=== PATIENT | male | born 1950 | race Caucasian/White ===

== ENCOUNTER 2017-12-14 15:55 | Inpatient (IN) | payer OTHER ==
[2017-12-14] MEDS ORDERED: LORazepam 2 MG/ML INJ IVP ONE (16:10)
[2017-12-14] MEDS ORDERED: NS 1,000 ML IV ONE (16:10)
--- NOTE | 2017-12-14 16:14 | CPEKG ---
Heart Rate: 111 RR Interval: 541 P-R Interval: 148 QRSD Interval: 94 QT Interval: 352 QTC Interval: 479 P Waverly: 41 QRS Waverly: 11 T Wave Waverly: 36 EKG Severity - ABNORMAL ECG - EKG Impression: PACEMAKER SPIKES OR ARTIFACTS EKG Impression: SINUS TACHYCARDIA EKG Impression: BORDERLINE PROLONGED QT INTERVAL Electronically Signed By: Marlen Loving 14-Dec-2017 19:29:22
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
[2017-12-14 16:26] LABS: PLATELET COUNT 273 10^3/uL (150-400)
[2017-12-14] MEDS ORDERED: OLANZapine DISINTEGR 5 MG TAB PO ONE (16:58)
[2017-12-14] MEDS ORDERED: HALOPERIDOL LACT 5 MG/ML INJ ONE (19:03)
[2017-12-14] MEDS ORDERED: HALOPERIDOL LACT 5 MG/ML INJ IM ONE (19:10)
[2017-12-15] MEDS ORDERED: MAGNESIUM HYDROXIDE 30 ML UDCUP PO PRN (14:59)
[2017-12-15] MEDS ORDERED: MAG HYDROX/AL HYDROX/SIMETH 30 ML UDCUP PO PRN (14:59)
[2017-12-15] MEDS ORDERED: OLANZapine DISINTEGR 10 MG TAB PO PRN (14:59)
[2017-12-15] MEDS ORDERED: traZODone 50 MG TAB PO PRN (15:01)
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
[2017-12-15] MEDS: BENZTROPINE MESYLATE 1 MG TAB PO SCH ×2 (19:02→19:07)
[2017-12-15] MEDS: NICOTINE POLACRILEX 2 MG GUM B PRN (19:02)
[2017-12-16] MEDS: NICOTINE POLACRILEX 2 MG GUM B PRN ×2 (05:03→07:26)
[2017-12-16] MEDS: BENZTROPINE MESYLATE 1 MG TAB PO SCH ×3 (07:25→20:37)
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
--- NOTE | 2017-12-16 13:26 | PDGENHP ---
History and Physical History and Physical: CC: I have been asked by the mental health team to provide assessment and assistance in the care of this patient who is admitted to the Behavioral Health Unit with acute psychosis HISTORY: This patient who has a previous history of psychiatric illness including some type of psychotic illness, diagnosis is unclear to me, was apparently pulled over by police for driving 100 miles an hour on a local roadway and was noted to be very clearly in need of mental health assessment and care. It is reported to me by staff here on the unit that the patient was found to have some methamphetamine in his pocket but I do not know the details of this. He was assessed in the emergency room and is now on the Behavioral Health Unit or evaluating him. Most of the history I have available comes to me directly from the patient, and this is quite unreliable as he is clearly quite psychotic at this point. However he does state that he feels very physically comfortable and denies any symptoms of any acute illness in the recent past. He does offer up some type of history of some very bizarre symptoms from the remote past but these are bizarre enough that they do not really make any sense from a medical standpoint and I am not at all clear as to whether the relate to any real illness or injury in the past or not. He does not feel like he needs any specific help for any acute medical issues, nor does he have any concerns about any acute medical issues now. He is concerned about his mental health and knows that things are not working very well for him right now, and is hoping that he can improve to the point of being discharged fairly soon. He would like to be home with his significant other. ROS: A comprehensive 10 system review revealed no other significant findings PAST MEDICAL HISTORY: Unable to assess other than that I know he has some type of significant psychiatric history There are no available past medical records at this time and we are not able to find out from him where he he has had past care from talking to him FAMILY MEDICAL HISTORY: Unable to assess due to his psychosis now SOCIAL HISTORY: He apparently has a significant other although I am unable to determine if that is a or other partner Apparently he uses methamphetamine as we did find this on him, he does not deny using any street drugs here but I am unable to get a clear answer as to what he might use or when MEDICATIONS: The patients list has been reconciled by our clinical pharmacist in the EMR. I have reviewed the list and ordered appropriate medicines. PHYSICAL EXAMINATION: Vital Signs: He is mildly tachycardic right now but has a regular pulse, initially hypertensive but this is improving, no fever and respirations are good Examination: General/psychiatric: Fairly disheveled in appearance, hyperactive, mildly anxious but very pleasant and in fact fairly giddy; pressured speech; very bizarre psychotic content to his speech, he has a book that he shows me that has some art work that he has done just recently which is done by markers and pen and ink. All of this are workers quite bizarre some of it quite disorganized but some of it quite psychedelic. Neurologic: alert, and interacts appropriately, however he is clearly very psychotic with much bizarre ideation some of which is grandiose and some of which is baptism, dramatically increased psychomotor activity, however no tremor, and no other abnormal neurologic movement findings. He has a normal gait. Facial symmetry is unremarkable; understands that he is in Behavioral Health Unit, speech and language function are good other than the psychotic component Skin: warm, dry, good color, no rash HEENT: normal Neck: no mass or jvd Resps: relaxed Lungs: clear breath sounds Heart: regular, no murmur Abdomen: soft, nondistended, nontender, +BS, no mass Upper Extremities: normal Lower Extremities: no edema, warm No Bleeding or bruising LABORATORY DATA: No TSH was done in the ER but the rest of his chemistry and CBC remarkable 12 LEAD EKG: I reviewed the tracing from the ER EKG, it shows sinus rhythm with no specific abnormality. It is read as borderline QT prolongation but as I measured it does not actually appear as long as recorded on the tracing numbers. IMAGING STUDIES: A CT head was done in the emergency room I reviewed the images from that, I see no specific acute abnormality or anything that would relate to his presenting symptoms ASSESSMENT: -acute psychosis with a history of psychiatric illness in the past. The past diagnosis and treatments are unknown to me nor is his current use of prescribed medications as he is unable to elaborate -suspected methamphetamine use and would not be surprised if there were use of other compounds with psych a delicate affect -tachycardia and hypertension probably related to his use of street drugs and has psychotic state as a result rather than a cause -we have not checked thyroid and would certainly want to check that given his tachycardia and mental health changes -otherwise appears to be in good physical health at this time PLANS: I have ordered a TSH He is actually happy pleasant and given his overall state, not really agitated or having any problematic behaviors on the unit at this time; should he begin to get fairly agitated or have problematic behaviors Ativan might be quite useful given his suspected ingestions
[2017-12-16] MEDS: LORazepam 0.5 MG TAB PO PRN (18:38)
[2017-12-17] MEDS: BENZTROPINE MESYLATE 1 MG TAB PO SCH ×2 (08:54→21:11)
[2017-12-17] MEDS: NICOTINE POLACRILEX 2 MG GUM B PRN (10:02)
--- NOTE | 2017-12-17 14:46 | SOAPPROG ---
SOAP Progress Note Assessment/Plan: Assessment: 67 yo with h/o bipolar, type I, mre manic without psychotic features and polysubstance dependence. Plan: 12/16/17 12:34 1. Patient has been restarted on Prolixin 2.5mg TID which he had been prescribed for many years. Most recently, he had Rx filled in 08/15 from [facility]. 2. Patient refused to take Cogentin this AM. 3. Patient is still very grandiose and delusional, intrusive, pressured speech, difficult to interrupt. 4. Will place on STC when hold expires tomorrow. 12/17/17 14:41 1. MD recommended addition of mood stabilizer, either lithium or Depakote, but patient insisted he "doesn't need anything" else. MD is concerned that Prolixin is not effective as monotherapy to treat patient's ebony. However, patient insists that's all he's ever taken in past. 2. Patient did take PRN Zyprexa and Ativan last night b/c he was agitated and staff recommended it. However, this AM, patient was paranoid and irritable when MD and RN mentioned he might need additional meds. "What are you trying to push on me?" he said. 3. Patient still grandiose, delusional, and sexually inappropriate with female staff and peers. Only slept 4 hrs. 4. Increase Prolixin to 5mg TID since that is the only med patient will take now. 5. STC today Subjective: Met with patient, reviewed chart and d/w staff. Patient says "I'm ready to leave." MD pointed out that patient was driving recklessly and thought God told him to do it. In MD's opinion, patient should be on mood stabilizer for ebony, however, patient insisted he "doesn't need" any other meds. He is refusing to take lithium or depakote which MD recommended and even refused Ativan when MD suggested it might help with his agitation. Patient only slept 4 hours last night. Objective: Vital Signs Temp Pulse Resp BP Pulse Ox 36.4 C 97 16 145/87 H 97 12/17/17 06:00 12/17/17 06:00 12/17/17 06:00 12/17/17 06:00 12/17/17 06:00 MSE: Affect: Elevated, irritable at times Mood: "I'm great" TP: Tangential, difficult to interrupt TC: Grandiose delusions, paranoia about meds Insight/ Judgment: Impaired - Time Spent With Patient Time Spent With Patient: 20" - Pending Discharge Pending Discharge Within 24 Hours: No Pending Discharge Within 48 Hours: No ICD10 Worksheet Patient Problems: Problems Problem Status Onset Ebony Acute
[2017-12-17] MEDS: LORazepam 0.5 MG TAB PO PRN (22:42)
[2017-12-18] MEDS: NICOTINE POLACRILEX 2 MG GUM B PRN ×5 (07:08→22:25)
[2017-12-18] MEDS: BENZTROPINE MESYLATE 1 MG TAB PO SCH (08:11)
[2017-12-18] MEDS ORDERED: OLANZapine DISINTEGR 10 MG TAB PO PRN (08:32)
[2017-12-18] MEDS ORDERED: FLUPHENAZINE HCL IM PRN (12:31)
[2017-12-18] MEDS ORDERED: LORazepam 0.5 MG TAB PO PRN (12:31)
[2017-12-18] MEDS ORDERED: LORazepam 2 MG/ML INJ IM PRN (12:32)
--- NOTE | 2017-12-18 12:37 | SOAPPROG ---
SOAP Progress Note Assessment/Plan: Assessment: Bipolar Disorder type I Manic severe with psychotic features versus Schizoaffective Disorder bipolar type Cannabis Use Disorder severe Stimulant Use Disorder severe Overweight Patient admitted for reckless driving, disorganized thoughts/behaviors, grandiose delusions, appearing gravely disabled. Patient has been non-compliant with Prolixin since July, history of multiple psychiatric hospitalizations. Patient has been intrusive, hypersexual, disruptive on unit and spit out medications at times. Patient has been menacing staff and received Zydis 10mg PRN this AM. Plan: Patient is on short term certification Apply for court ordered ordered medication EMED DAY # ONE Prolixin 5mg PO TID, if refused 2.5mg IM TID Ativan 1mg PO TID PRN anxiety, if refused 1mg IM TID Zydis 10mg [id number] PRN agitation Cogentin 1mg PRN EPS Check lipids, HgbA1c, B12 Discussed dangers of cannabis and amphetamines Education about bipolar disorder 12/18/17 12:38 12/18/17 12:42 Subjective: CC: "I'm normal, I love everyone, love is in the air, my parents are here" Patient is a poor historian with rambling speech. Lives alone in apartment, on SS disability for mental illness but reports he doesn't believe he has a mental illness. 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 Admits to smoking cannabis daily and obtaining amphetamines prior to admission. Endorses multiple past psychiatric hospitalizations. Unable to explain signs/symptoms of bipolar disorder. Unsure if he is willing to take Prolixin. Denies using alcohol or sedatives prior to admission. Denies stiffness or tremors. Objective: Vital Signs Temp Pulse Resp BP Pulse Ox 36.4 C 98 20 134/93 H 93 12/18/17 06:00 12/18/17 06:00 12/18/17 06:00 12/18/17 06:00 12/18/17 06:00 Alert tall WM, long hair, sock hanging from front collar, overweight. Speech rapid, rambling. Mood 'normal, love everyone.' Affect labile - euphoric, expansive, later irritable and dysphoric. Denies SI or HI. Denies AH or paranoia. no insight, impaired judgment Staff report patient slept 5 hours. Intrusive, hypersexual, leah naked woman in art group, disorganized and menacing to staff with yelling and angry grestures, got PRN Zydis and Ativan over past 24hours. Psychiatrist Dr. Paulino Maria reports patient was previously stable on 10mg/ day of Prolixin but hasn't been seen in clinic in 6 months, history of hospitalizations for Bipolar Disorder with psychotic features versus Schizoaffective Disorder, past outpatient at [facility]. - Time Spent With Patient Time Spent With Patient: 30 minutes - Pending Discharge Pending Discharge Within 24 Hours: No Pending Discharge Within 48 Hours: No ICD10 Worksheet Patient Problems: Problems Problem Status Onset Ebony Acute
[2017-12-18] MEDS ORDERED: BENZTROPINE MESYLATE 1 MG TAB PO PRN (12:43)
[2017-12-19] MEDS: NICOTINE POLACRILEX 2 MG GUM B PRN ×5 (04:40→21:20)
[2017-12-19] MEDS ORDERED: CYANO/VITAMIN B12 1000 MCG/ML VIAL IM ONE (11:00)
--- NOTE | 2017-12-19 12:28 | SOAPPROG ---
SOAP Progress Note Assessment/Plan: Assessment: Bipolar Disorder type I Manic severe with psychotic features versus Schizoaffective Disorder bipolar type Cannabis Use Disorder severe Stimulant Use Disorder severe Overweight, elevated LDL, borderline low B12 Nicotine Use Disorder - uses nicotine gum Patient admitted for reckless driving, disorganized thoughts/behaviors, grandiose delusions, appearing gravely disabled. Patient has been non-compliant with Prolixin since July, history of multiple psychiatric hospitalizations. Patient has been intrusive, hypersexual, disruptive on unit and spit out medications at times and may be 'cheeking' Prolixin tablets. Plan: Patient is on short term certification Applied for court ordered ordered medication EMED DAY # TWO Discontinue PO Prolixin Risperdal SL 2mg TID, if refused Fluphenazine 2.5mg IM TID Ativan 1mg PO TID PRN anxiety, if refused 1mg IM TID Cogentin 1mg PRN EPS Education about bipolar disorder. Monitor manic symptoms, behavior, impulse control, judgment Start B12 IM once then PO 100mcg daily 12/19/17 12:31 Subjective: CC: "angry because I'm a genious and you're not an artist." Patient is a poor historian. Denies violent or suicidal thoughts. Reports he recognizes he has bipolar disorder but doesn't want treatment. 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 isn't intelligent enough to help him. Endorses past trials of Depakote, [place], and Risperdal but unable to explain why or if he had benefit or side effects. Unable to explain why he is in the hospital. Objective: Vital Signs Temp Pulse Resp BP Pulse Ox 36.4 C 74 14 138/91 H 95 12/18/17 06:00 12/19/17 06:00 12/19/17 06:00 12/19/17 06:00 12/19/17 06:00 ALert tall heavy WM. Disheveled with bizarre hair micheal and layered clothing. Mood "angry because I'm a genious and you're not an artist." Speech rapid with yelling and wild gesturing. Agitated and irritable affect, expansive at times. Thoughts tangential with flight of ideas. Denies SI or HI or AH. Grandiose delusions. Poor insight. Staff report patient labile, irritable, only slept 1 hour but napped yesterday. Singing, dancing, and skipping through the hallways with disorganized and bizarre behavior; making statements about saving mankind and talking to God. HgbA1c 5.2; Trig 84, LDL 195, HDL 49, B12 281 - Time Spent With Patient Time Spent With Patient: 15 minutes - Pending Discharge Pending Discharge Within 24 Hours: No Pending Discharge Within 48 Hours: No ICD10 Worksheet Patient Problems: Problems Problem Status Onset Ebony Acute
[2017-12-19] MEDS ORDERED: FLUPHENAZINE HCL IM PRN (12:31)
[2017-12-19] MEDS ORDERED: LORazepam 2 MG/ML INJ IM PRN (12:32)
[2017-12-19] MEDS: RISPERIDONE 2 MG ODT TAB SL SCH ×2 (15:30→19:27)
[2017-12-19] MEDS: CYANO/VITAMIN B12 100 MCG TAB PO SCH (16:46)
[2017-12-20] MEDS: NICOTINE POLACRILEX 2 MG GUM B PRN ×4 (02:32→23:35)
[2017-12-20] MEDS: CYANO/VITAMIN B12 100 MCG TAB PO SCH (08:21)
[2017-12-20] MEDS: RISPERIDONE 2 MG ODT TAB SL SCH ×3 (08:21→20:39)
--- NOTE | 2017-12-20 08:39 | SOAPPROG ---
SOAP Progress Note Assessment/Plan: Assessment: Bipolar Disorder type I Manic severe with psychotic features versus Schizoaffective Disorder bipolar type Cannabis Use Disorder severe Stimulant Use Disorder severe Overweight, elevated LDL, elevated BP, borderline low B12 Nicotine Use Disorder - uses nicotine gum Patient admitted for reckless driving, disorganized thoughts/behaviors, grandiose delusions, appearing gravely disabled concurrent with cannabis and amphetamine abuse and outpatient treatment non-compliance. Patient has been non-compliant with Prolixin since July, history of multiple psychiatric hospitalizations. Patient has continued manic symptoms with inappropriate behavior and severe insomnia. Plan: Patient is on short term certification Applied for court ordered ordered medication Discontinue EMEDS Continue Risperdal SL 2mg TID, started 12/19/17 Start Depakene liquid 250mg TID, discussed risk of sedation, hepatitis, pancreatitis, thrombocytopenia Ativan 1mg PO TID PRN anxiety Cogentin 1mg TID PRN EPS Education about bipolar disorder. Monitor manic symptoms, behavior, impulse control, judgment B12 IM given 12/19; continue PO B12; restart Lipitor and Lisinopril 12/20/17 08:41 Subjective: CC: "I love it" Patient reports he slept peacefully and denies somatic complaints; denies feeling stiff or slowed or sedated. Endorses past diagnoses of hypertension and hyperlipidemia and taking lisinopril and lipitor in the past, willing to restart. 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 Reports he now believes he has bipolar disorder and is willing to take medication. Unable to explain reasons for admission or recurrent medication non -compliance but is willing to consider stopping cannabis and amphetamine abuse. Objective: Vital Signs Temp Pulse Resp BP Pulse Ox 36.8 C 99 14 139/98 H 96 12/20/17 06:00 12/20/17 06:00 12/20/17 06:00 12/20/17 06:00 12/20/17 06:00 Alert tall WM. Ambulatory. Speech rapid, loud at times. Thoughts tangential with flight of ideas. Mood 'great" "I love it" Affect expansive, then labile and tearful. Denies SI or HI or AH. Insight limited. Judgment impaired. Staff report patient cooperative with SL Risperdal Mtab but only slept 1.5 hours overnight. Hypersexual statements, labile, disorganized, and grandiose on unit, inappropriately touched female patients foot. - Time Spent With Patient Time Spent With Patient: 30 minutes - Pending Discharge Pending Discharge Within 24 Hours: No Pending Discharge Within 48 Hours: No ICD10 Worksheet Patient Problems: Problems Problem Status Onset Ebony Acute
[2017-12-20] MEDS: ATORVASTATIN CALCIUM 10 MG TAB PO SCH (08:58)
[2017-12-20] MEDS: LISINOPRIL 5 MG TAB PO SCH (08:58)
[2017-12-20] MEDS: VALPROIC ACID 250 MG/5 ML UDCUP PO SCH ×3 (08:59→20:39)
[2017-12-20] MEDS: NICOTINE 21 MG/24 HR PATCH TD SCH (11:08)
[2017-12-21] MEDS: MELATONIN 3 MG TAB PO PRN (00:04)
[2017-12-21] MEDS: NICOTINE POLACRILEX 2 MG GUM B PRN ×3 (04:17→06:38)
[2017-12-21] MEDS: NICOTINE 21 MG/24 HR PATCH TD SCH (08:38)
[2017-12-21] MEDS: CYANO/VITAMIN B12 100 MCG TAB PO SCH (08:38)
[2017-12-21] MEDS: LISINOPRIL 5 MG TAB PO SCH (08:39)
[2017-12-21] MEDS: RISPERIDONE 2 MG ODT TAB SL SCH ×3 (08:39→20:40)
[2017-12-21] MEDS: ATORVASTATIN CALCIUM 10 MG TAB PO SCH (08:39)
[2017-12-21] MEDS: VALPROIC ACID 250 MG/5 ML UDCUP PO SCH ×3 (08:40→20:41)
--- NOTE | 2017-12-21 10:16 | SOAPPROG ---
SOAP Progress Note Assessment/Plan: Assessment: Bipolar Disorder type I Manic severe with psychotic features versus Schizoaffective Disorder bipolar type Cannabis Use Disorder severe Stimulant Use Disorder severe Overweight, elevated LDL, elevated BP, borderline low B12 Nicotine Use Disorder - uses nicotine gum Patient admitted for reckless driving, disorganized thoughts/behaviors, grandiose delusions, appearing gravely disabled concurrent with cannabis and amphetamine abuse and outpatient treatment non-compliance. Patient has been non-compliant with Prolixin since July, history of multiple psychiatric hospitalizations. Patient has continued manic symptoms with bizarre and disorganized behavior and severe insomnia. Plan: Patient is on short term certification Applied for court ordered ordered medication Continue Risperdal SL 2mg TID, started 12/19/17 Increase Depakene liquid 500mg TID Ativan 1mg PO TID PRN anxiety Cogentin 1mg TID PRN EPS Education about bipolar disorder. Monitor manic symptoms, behavior, impulse control, judgment B12 IM given 12/19; continue PO B12; Lipitor and Lisinopril 12/21/17 10:15 Subjective: CC: "Great" "I had a breakdown" Patient is a poor historian due to disorganized thinking. Alternatively reports he feels good and wants discharge, later reports he 'had a breakdown' but unable to explain further. Makes rambling statements about God, his father , and numerous unrelated topics. Denies violent or suicidal thoughts. Denies hallucinations. Denies feeling stiff or slow or having tremors. Denies diarrhea or nausea. Objective: Vital Signs Temp Pulse Resp BP Pulse Ox 36.4 C 84 16 119/77 94 12/21/17 06:00 12/21/17 06:00 12/21/17 06:00 12/21/17 06:00 12/21/17 06:00 Alert tall WM, overweight. Speech rapid. Thoughts tangential with loose associations and flight of ideas. Mood "Great" "I had a breakdown" Affect euphoric. Denies SI or HI or AH. Grandiose ideas. Poor insight, impaired judgment Staff report patient only slept 2.5 hours, disorganized behavior, singing, expansive, later tearful and labile. - Time Spent With Patient Time Spent With Patient: 15 minutes - Pending Discharge Pending Discharge Within 24 Hours: No Pending Discharge Within 48 Hours: No ICD10 Worksheet Patient Problems: Problems Problem Status Onset Ebony Acute
[2017-12-22] MEDS: NICOTINE POLACRILEX 2 MG GUM B PRN ×2 (04:53→07:11)
[2017-12-22] MEDS: CYANO/VITAMIN B12 100 MCG TAB PO SCH (08:36)
[2017-12-22] MEDS: VALPROIC ACID 250 MG/5 ML UDCUP PO SCH ×3 (08:36→21:02)
[2017-12-22] MEDS: LISINOPRIL 5 MG TAB PO SCH (08:37)
[2017-12-22] MEDS: RISPERIDONE 2 MG ODT TAB SL SCH ×3 (08:37→21:02)
[2017-12-22] MEDS: NICOTINE 21 MG/24 HR PATCH TD SCH (08:37)
[2017-12-22] MEDS: ATORVASTATIN CALCIUM 10 MG TAB PO SCH (08:37)
--- NOTE | 2017-12-22 08:52 | SOAPPROG ---
SOAP Progress Note Assessment/Plan: Assessment: Bipolar Disorder type I Manic severe with psychotic features versus Schizoaffective Disorder bipolar type Cannabis Use Disorder severe Stimulant Use Disorder severe Overweight, elevated LDL, elevated BP, borderline low B12 - B12 IM given 12/19; continue PO B12; Lipitor and Lisinopril Nicotine Use Disorder - uses nicotine gum Patient admitted for reckless driving, disorganized thoughts/behaviors, grandiose delusions, appearing gravely disabled concurrent with cannabis and amphetamine abuse and outpatient treatment non-compliance: history of multiple psychiatric hospitalizations. Patient has continued manic symptoms with reduced sleep but appears more calm than previous and less hypersexual. Plan: Patient is on short term certification Applied for court ordered ordered medication ISB-2 precautions Continue Risperdal SL 2mg TID, started 12/19/17 Increase Depakene liquid 500mg BID and 1000mg QHS Check Depakote level and CMP on Monday12/25/17 Ativan 1mg PO TID PRN anxiety Cogentin 1mg TID PRN EPS Education about bipolar disorder. Monitor manic symptoms, behavior, impulse control, judgment 12/22/17 08:52 Subjective: CC: 'Partying, laughing, singing, I'm jimenes, I understand the word of God.' Patient is a poor historian. Denies mood swings but reports he is excited to be in the hospital. Makes rambling statements about being at a republican, talking to God, and feeling that he understands special messages of wisdom. Denies agitation or irritability. Denies stiffness or tremors or feeling slowed or sedated. Unable to explain events that led to hospitalization. Objective: Vital Signs Temp Pulse Resp BP Pulse Ox 36.5 C 80 16 138/96 H 97 12/22/17 06:00 12/22/17 06:00 12/22/17 06:00 12/22/17 06:00 12/22/17 06:00 Alert WM, no distress, no tremors or stiffness or slowing. Speech RRR, rapid at times. Thoughts tangential with flight of ideas. Mood 'Partying, laughing, singing, I'm jimenes, I understand the word of God.' Affect euthymic, euphoric. Denies SI or HI or AH or paranoia. Limited insight, poor judgment Staff report patient compliant with medications. Napped during day yesterday, didn't sleep at all overnight. Labile, euphoric, inappropriate comments with disorganized behavior on unit. - Time Spent With Patient Time Spent With Patient: 15 minutes - Pending Discharge Pending Discharge Within 24 Hours: No Pending Discharge Within 48 Hours: No ICD10 Worksheet Patient Problems: Problems Problem Status Onset Ebony Acute
[2017-12-22] MEDS ORDERED: VALPROIC ACID 250 MG/5 ML UDCUP PO SCH (09:00)
[2017-12-23] MEDS: NICOTINE POLACRILEX 2 MG GUM B PRN (04:31)
[2017-12-23] MEDS: ATORVASTATIN CALCIUM 10 MG TAB PO SCH (08:43)
[2017-12-23] MEDS: CYANO/VITAMIN B12 100 MCG TAB PO SCH (08:44)
[2017-12-23] MEDS: LISINOPRIL 5 MG TAB PO SCH (08:44)
[2017-12-23] MEDS: RISPERIDONE 2 MG ODT TAB SL SCH ×3 (08:45→21:24)
[2017-12-23] MEDS: VALPROIC ACID 250 MG/5 ML UDCUP PO SCH ×3 (08:47→21:24)
[2017-12-23] MEDS: NICOTINE 21 MG/24 HR PATCH TD SCH (08:47)
--- NOTE | 2017-12-23 14:11 | SOAPPROG ---
SOAP Progress Note Assessment/Plan: Assessment: Pt is 67yo CM admitted in manic state with psychosis, gravely disabled and with cannabis and amphetamine abuse, outpatient treatment non-compliance: history of multiple psychiatric hospitalizations. On [facility], with c.o. medication request submitted. 12/23/17 14:00 Per staff, pt slept perhaps 5hr total. Attending groups, has been out in milieu , pleasantly manic. 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 Likes being in hospital, asks how long he is able to stay. 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 No speech impairments clinically noted. No dysarthria, speech clear and patient quite constantly talkative, somewhat disinhibited, bright affect, engaging, not appearing to respond to any int stim, thoughts grandiose, with some flight of ideas, denied ah/vh or any si/hi. i/j-impaired Dx: Bipolar Disorder type I Manic severe with psychotic features versus Schizoaffective Disorder bipolar type Cannabis Use Disorder severe Stimulant Use Disorder severe Overweight, elevated LDL, elevated BP, borderline low B12 Nicotine Use Disorder Plan: ISB-2 precautions cont po B12, Lipitor, Lisinopril Continue Risperdal SL 2mg TID, started 12/19/17 Cont Depakene liquid 500mg BID and 1000mg QHS Depakote level and CMP pending for 12/25/17 Ativan 1mg PO TID PRN anxiety Cogentin 1mg TID PRN EPS nicotine gum prn Objective: Vital Signs Temp Pulse Resp BP Pulse Ox 36.9 C 103 H 14 121/88 H 97 12/23/17 00:26 12/23/17 00:26 12/23/17 00:26 12/23/17 08:44 12/23/17 00:26 - Time Spent With Patient Time Spent With Patient: 25min - Pending Discharge Pending Discharge Within 24 Hours: No Pending Discharge Within 48 Hours: No ICD10 Worksheet Patient Problems: Problems Problem Status Onset Ebony Acute
[2017-12-24] MEDS: NICOTINE POLACRILEX 2 MG GUM B PRN ×2 (03:00→06:41)
[2017-12-24] MEDS: VALPROIC ACID 250 MG/5 ML UDCUP PO SCH ×3 (08:28→21:05)
[2017-12-24] MEDS: ATORVASTATIN CALCIUM 10 MG TAB PO SCH (08:29)
[2017-12-24] MEDS: RISPERIDONE 2 MG ODT TAB SL SCH ×3 (08:29→21:04)
[2017-12-24] MEDS: LISINOPRIL 5 MG TAB PO SCH (08:29)
[2017-12-24] MEDS: CYANO/VITAMIN B12 100 MCG TAB PO SCH (08:29)
[2017-12-24] MEDS: NICOTINE 21 MG/24 HR PATCH TD SCH (08:31)
[2017-12-24] MEDS: ACETAMINOPHEN 325 MG TAB PO PRN (18:08)
[2017-12-25] MEDS: NICOTINE POLACRILEX 2 MG GUM B PRN (05:27)
[2017-12-25] MEDS: NICOTINE 21 MG/24 HR PATCH TD SCH (08:41)
[2017-12-25] MEDS: RISPERIDONE 2 MG ODT TAB SL SCH ×3 (08:42→20:47)
[2017-12-25] MEDS: ATORVASTATIN CALCIUM 10 MG TAB PO SCH (08:42)
[2017-12-25] MEDS: LISINOPRIL 5 MG TAB PO SCH (08:42)
[2017-12-25] MEDS: CYANO/VITAMIN B12 100 MCG TAB PO SCH (08:42)
--- NOTE | 2017-12-25 08:42 | SOAPPROG ---
SOAP Progress Note Assessment/Plan: Assessment: Schizoaffective Disorder bipolar type Cannabis Use Disorder severe Stimulant Use Disorder severe Overweight, elevated LDL, elevated BP, borderline low B12 - B12 IM given 12/19; continue PO B12; Lipitor and Lisinopril Nicotine Use Disorder - uses nicotine gum Patient admitted for reckless driving, disorganized thoughts/behaviors, grandiose delusions, reckless spending, appearing gravely disabled concurrent with cannabis and amphetamine abuse and outpatient treatment non-compliance; history of multiple psychiatric hospitalizations and past diagnosis of Schizophrenia. Patient has continued manic symptoms with reduced sleep but appears more calm than previous and less hypersexual. Plan: Patient is on short term certification Applied for court ordered ordered medication ISB-2 precautions Continue Risperdal SL 2mg TID, started 12/19/17 Start Invega Sustenna 234mg IM, dose #1, tomorrow 12/26/16 Continue Depakene liquid 500mg BID and 1000mg QHS Depakote level and CMP pending Ativan 1mg PO TID PRN anxiety Cogentin 1mg TID PRN EPS Education about bipolar disorder. Monitor manic symptoms, behavior, impulse control, judgment Typed/faxed letter for brother to pursue guardianship for financial decision making Provided brother contact information for [facility] Will consider OT evaluation if symptoms stable, scored 29/30 on SLUMS 12/25/17 12/25/17 08:47 Subjective: CC: 'good, better, like a complete yurok, love in my heart.' Patient is a poor historian. Reports he is willing to take long acting Invega injection. Unable to explain diagnosis or reason for admit. Reports feeling ' really good' but then later is crying while describing how multiple women love him. Denies feeling stiff or slowed. Denies paranoia or AH. Denies feeling hopeless or agitated. Objective: Vital Signs Temp Pulse Resp BP Pulse Ox 37.0 C 90 14 104/75 98 12/25/17 04:13 12/25/17 04:13 12/25/17 04:13 12/25/17 04:13 12/25/17 04:13 Alert WM. Speech RRR, loud and rapid at times. Mood: 'good, better, like a complete yurok, love in my heart.' Affect euphoric with laughing, later dysphoric and tearful. Thoughts tangential with occasional loose association. Denies SI or HI or AH or paranoia. Grandiose ideas that multiple women are in love with him. No insight. Impaired judgment. SLUMS today 12/25/17 Staff report patient slept 5 hours. Labile and euphoric on unit but more calm and less intrusive than previous. Depakote level, CMP pending. Brother Logan Lebron faxed letter and spoke to this physician. He reports patient has a history of recurrent ebony and psychotic symptoms with disorganized and reckless behavior with chronic apathy and poor hygiene, going months without showering and needing chronic adult assistance to maintain living and health. Patient has at least 5 past hospitalizations for ebony and psychosis. Patient recently impulsively spent $100,000 inheritence. Patient has been unable to care for self since from his last fall. - Time Spent With Patient Time Spent With Patient: 40 minutes - Pending Discharge Pending Discharge Within 24 Hours: No Pending Discharge Within 48 Hours: No ICD10 Worksheet Patient Problems: Problems Problem Status Onset Ebony Acute Schizoaffective disorder, bipolar type Acute
[2017-12-25] MEDS: VALPROIC ACID 250 MG/5 ML UDCUP PO SCH ×3 (09:11→20:47)
--- NOTE | 2017-12-25 09:28 | SOAPPROG ---
SOAP Progress Note Assessment/Plan: Assessment: Pt is 67yo CM admitted in manic state with psychosis, gravely disabled and with cannabis and amphetamine abuse, outpatient treatment non-compliance: history of multiple psychiatric hospitalizations. On ST, with c.o. medication request submitted. 12/23/17 14:00 Per staff, pt slept perhaps 5hr total. Attending groups, has been out in milieu , pleasantly manic. 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 Likes being in hospital, asks how long he is able to stay. 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 No speech impairments clinically noted. No dysarthria, speech clear and patient quite constantly talkative, somewhat disinhibited, bright affect, engaging, not appearing to respond to any int stim, thoughts grandiose, with some flight of ideas, denied ah/vh or any si/hi. i/j-impaired Dx: Bipolar Disorder type I Manic severe with psychotic features versus Schizoaffective Disorder bipolar type Cannabis Use Disorder severe Stimulant Use Disorder severe Overweight, elevated LDL, elevated BP, borderline low B12 Nicotine Use Disorder Plan: ISB-2 precautions cont po B12, Lipitor, Lisinopril Continue Risperdal SL 2mg TID, started 12/19/17 Cont Depakene liquid 500mg BID and 1000mg QHS Depakote level and CMP pending for 12/25/17 Ativan 1mg PO TID PRN anxiety Cogentin 1mg TID PRN EPS nicotine gum prn 12/24/17 15:30 per staff, slept 7h. improving gradually. pleasantly manic pt reports mood is "ecstasy, euphoria". bright affect. attending groups. engaging. less verbally inappropriate and with better boundaries. "I'm learning to be more classy with what I'm saying". denied AH/VH denied SI/HI. cognition conversationally intact. denied med s/e. likes his liquid Depakote PLAN: as above, with labs pending for am Objective: Vital Signs Temp Pulse Resp BP Pulse Ox 37.0 C 90 14 104/75 98 12/25/17 04:13 12/25/17 04:13 12/25/17 04:13 12/25/17 04:13 12/25/17 04:13 - Time Spent With Patient Time Spent With Patient: 25mn - Pending Discharge Pending Discharge Within 24 Hours: No Pending Discharge Within 48 Hours: No ICD10 Worksheet Patient Problems: Problems Problem Status Onset Ebony Acute Schizoaffective disorder, bipolar type Acute
[2017-12-26] MEDS: NICOTINE POLACRILEX 2 MG GUM B PRN ×2 (00:56→06:19)
[2017-12-26] MEDS: ACETAMINOPHEN 325 MG TAB PO PRN (06:19)
[2017-12-26] MEDS: RISPERIDONE 2 MG ODT TAB SL SCH ×3 (08:27→20:29)
[2017-12-26] MEDS: VALPROIC ACID 250 MG/5 ML UDCUP PO SCH ×2 (08:27→20:20)
[2017-12-26] MEDS: LISINOPRIL 5 MG TAB PO SCH (08:27)
[2017-12-26] MEDS: ATORVASTATIN CALCIUM 10 MG TAB PO SCH (08:28)
[2017-12-26] MEDS: CYANO/VITAMIN B12 100 MCG TAB PO SCH (08:28)
[2017-12-26] MEDS: NICOTINE 21 MG/24 HR PATCH TD SCH (08:28)
[2017-12-26] MEDS ORDERED: PALIPERIDONE PALMITATE 234 MG/1.5 ML SYR IM ONE (11:00)
--- NOTE | 2017-12-26 11:17 | SOAPPROG ---
SOAP Progress Note Assessment/Plan: Assessment: Schizoaffective Disorder bipolar type Cannabis Use Disorder severe Stimulant Use Disorder severe Overweight, elevated LDL, elevated BP, borderline low B12 - B12 IM given 12/19; continue PO B12; Lipitor and Lisinopril Nicotine Use Disorder - uses nicotine gum Low back pain Patient admitted for reckless driving, disorganized thoughts/behaviors, grandiose delusions, reckless spending, appearing gravely disabled concurrent with cannabis and amphetamine abuse and outpatient treatment non-compliance; history of multiple psychiatric hospitalizations and past diagnosis of Schizophrenia. Patient has continued manic symptoms (euphoric, tangential) but appears more calm than previous with better sleep and less hypersexual. Plan: Patient is on short term certification Applied for court ordered ordered medication, hearing pending ISB-2 precautions Continue Risperdal SL 2mg TID, started 12/19/17 Patient received first dose of Invega Sustenna 234mg IM today 12/26/16 Plan 2nd injection of Invega Sustenna on 01/02/18 Increase Depakene liquid 1000mg QAM and 1500mg QHS Possible discharge home after 2nd Invega injection if having reduced manic symptoms after OT evaluation Refer to [facility] Monitor bipolar symptoms and thought organization PRN Aspirin for back pain 12/26/17 11:17 Subjective: CC: "I feel raw, not vulnerable, I am brave, I'm no threat.' Patient is a poor historian. Agreeable to take Invega Sustenna injection. Agrees to need for treatment but unable to explain diagnosis and symptoms/ behaviors that led to hospitalization. Reports taking PRN Aspirin in community for back pain and requests this medication. Denies agitation or irritability. Claims he is the savior that is on the unit to cure and treat and save the other patients. Makes rambling statements about a variety of topics. Yelling at nurses requesting coffee. Objective: Vital Signs Temp Pulse Resp BP Pulse Ox 36.4 C 60 14 128/80 H 97 12/26/17 06:00 12/26/17 06:00 12/26/17 06:00 12/26/17 08:27 12/26/17 06:00 Laboratory Results 12/25/17 04:45 Alert tall WM, ambulatory, overweight. Euphoric, expansive affect. Speech rapid, but less loud and less pressured than previous. Mood "I feel raw, not vulnerable, I am brave, I'm no threat.' Thoughts tangential with flight of ideas. Expansive comments about 'full circles' and 'saving everyone on the unit.' Denies AH or paranoia. Denies violent or suicidal thoughts. Insight limited. Judgment questionable. Staff report patient more calm than previous and slept 9 hours. Euphoric and expansive and disorganized on unit. Agreed to Invega Sustenna injection today. - Time Spent With Patient Time Spent With Patient: 20 minutes - Pending Discharge Pending Discharge Within 24 Hours: No Pending Discharge Within 48 Hours: No ICD10 Worksheet Patient Problems: Problems Problem Status Onset Ebony Acute Schizoaffective disorder, bipolar type Acute
[2017-12-26] MEDS ORDERED: ASPIRIN EC 325 MG TAB PO PRN (11:21)
[2017-12-27] MEDS: NICOTINE POLACRILEX 2 MG GUM B PRN ×2 (05:05→07:11)
[2017-12-27] MEDS: CYANO/VITAMIN B12 100 MCG TAB PO SCH (08:44)
[2017-12-27] MEDS: LISINOPRIL 5 MG TAB PO SCH (08:44)
[2017-12-27] MEDS: VALPROIC ACID 250 MG/5 ML UDCUP PO SCH ×2 (08:45→19:12)
[2017-12-27] MEDS: NICOTINE 21 MG/24 HR PATCH TD SCH (08:45)
[2017-12-27] MEDS: ATORVASTATIN CALCIUM 10 MG TAB PO SCH (08:45)
[2017-12-27] MEDS: RISPERIDONE 2 MG ODT TAB SL SCH ×3 (08:45→19:11)
--- NOTE | 2017-12-27 10:50 | SOAPPROG ---
SOAP Progress Note Assessment/Plan: Assessment: Schizoaffective Disorder bipolar type Cannabis Use Disorder severe Stimulant Use Disorder severe Overweight, elevated LDL, elevated BP, borderline low B12 - B12 IM given 12/19; continue PO B12; Lipitor and Lisinopril Nicotine Use Disorder - uses nicotine gum Low back pain Patient admitted for reckless driving, disorganized thoughts/behaviors, grandiose delusions, reckless spending, appearing gravely disabled concurrent with cannabis and amphetamine abuse and outpatient treatment non-compliance; history of multiple psychiatric hospitalizations and past diagnosis of Schizophrenia. Patient has continued manic symptoms (euphoric, tangential) but appears more calm than previous with better sleep and less hypersexual. Plan: Patient is on short term certification Applied for court ordered ordered medication, hearing pending ISB-2 precautions Continue Risperdal SL 2mg TID, started 12/19/17 Patient received first dose of Invega Sustenna 234mg IM 12/26/16 Plan 2nd injection of Invega Sustenna on 01/02/18 Continue Depakene liquid 1000mg QAM and 1500mg QHS, increased 12/26/17, check level 12/29/17 Possible discharge after 2nd Invega injection if having reduced manic symptoms after OT evaluation Refer to [facility] Monitor bipolar symptoms and thought organization 12/27/17 10:51 Subjective: CC: "a lot is happening, but I feel great" Patient reports overall feeling well. Agreeable to referral to [facility]. Denies stiffness or slowing or excessive sedation from medication. Makes rambling statements about a variety of topics. Denies violent or suicidal statements. Agrees to quit cannabis and amphetamines after discharge. Objective: Vital Signs Temp Pulse Resp BP Pulse Ox 36.6 C 92 16 111/69 96 12/27/17 04:42 12/27/17 04:42 12/27/17 04:42 12/27/17 08:44 12/27/17 04:42 Laboratory Results 12/25/17 04:45 ALert WM, disheveled, ambulatory without tremors or weakness. Speech loud, RRR. Mood 'a lot is happening, I feel great.' Affect euphoric, expansive. Thoughts tangential with flight of ideas. Denies SI or HI or AH or paranoia. Limited insight. Appropriate judgment. Staff report patient only slept 4.5 hours, cooperative with medications, expansive affect but redirectable and able to attend some groups. - Time Spent With Patient Time Spent With Patient: 15 minutes - Pending Discharge Pending Discharge Within 24 Hours: No Pending Discharge Within 48 Hours: No ICD10 Worksheet Patient Problems: Problems Problem Status Onset Ebony Acute Schizoaffective disorder, bipolar type Acute
[2017-12-28] MEDS: NICOTINE POLACRILEX 2 MG GUM B PRN (05:46)
[2017-12-28] MEDS: RISPERIDONE 2 MG ODT TAB SL SCH ×3 (08:25→20:56)
[2017-12-28] MEDS: NICOTINE 21 MG/24 HR PATCH TD SCH (08:25)
[2017-12-28] MEDS: VALPROIC ACID 250 MG/5 ML UDCUP PO SCH ×2 (08:26→18:26)
[2017-12-28] MEDS: ATORVASTATIN CALCIUM 10 MG TAB PO SCH (08:26)
[2017-12-28] MEDS: LISINOPRIL 5 MG TAB PO SCH (08:26)
[2017-12-28] MEDS: CYANO/VITAMIN B12 100 MCG TAB PO SCH (08:26)
--- NOTE | 2017-12-28 11:21 | SOAPPROG ---
SOAP Progress Note Assessment/Plan: Assessment: Schizoaffective Disorder bipolar type Cannabis Use Disorder severe Stimulant Use Disorder severe Overweight, elevated LDL, elevated BP, borderline low B12 - B12 IM given 12/19; continue PO B12; Lipitor and Lisinopril Nicotine Use Disorder - uses nicotine gum Low back pain Possible Legal charges Patient admitted for reckless driving, disorganized thoughts/behaviors, grandiose delusions, reckless spending, appearing gravely disabled concurrent with cannabis and amphetamine abuse and outpatient treatment non-compliance; history of multiple psychiatric hospitalizations and past diagnosis of Schizophrenia and Bipolar Disorder. Patient has continued manic symptoms (euphoric, tangential) but appears more calm than previous with better sleep and less hypersexual. Plan: Patient is on short term certification Patient is on court ordered medications ISB-2 precautions Continue Risperdal SL 2mg TID, started 12/19/17 Patient received first dose of Invega Sustenna 234mg IM 12/26/16 Plan 2nd injection of Invega Sustenna 156 on 01/02/18 Continue Depakene liquid 1000mg QAM and 1500mg QHS, increased 12/26/17, check level tomorrow 12/29/17 Possible discharge after 2nd Invega injection after OT evaluation Refer to [facility] or [facility] with brother's support; patient may be able to return to independent living if receiving daily support from brothers Monitor bipolar symptoms and thought organization Refer to [facility] 12/28/17 11:22 Subjective: CC: "I feel great, slept like a baby, masturbated last night to relax, 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 Reports feeling well and denies violent or suicidal thoughts. Unable to explain the nature of his illness or diagnosis or the risks/benefits of psychiatric medications. Agrees that he needs support daily if living independently, agrees to [facility] placement if needed. Makes rambling statements about 'getting A's, deer skin gloves, reading books, going to school.' Objective: Vital Signs Temp Pulse Resp BP Pulse Ox 36.6 C 81 16 121/84 H 96 12/28/17 06:00 12/28/17 06:00 12/28/17 06:00 12/28/17 08:26 12/28/17 06:00 Laboratory Results 12/25/17 04:45 Alert WM, cooperative and calm. No stiffness or tremors. Speech rapid. Thought disorganized at times and tangential at times. 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 Denies SI or HI or AH. Limited insight. Questionable judgment. Staff report patient slept 7.5 hours. Disorganized speech and behaviors at times with poor hygiene. - Time Spent With Patient Time Spent With Patient: 15 minutes - Pending Discharge Pending Discharge Within 24 Hours: No Pending Discharge Within 48 Hours: No ICD10 Worksheet Patient Problems: Problems Problem Status Onset Ebony Acute Schizoaffective disorder, bipolar type Acute
--- NOTE | 2017-12-29 08:03 | SOAPPROG ---
SOAP Progress Note Assessment/Plan: Assessment: Schizoaffective Disorder bipolar type Cannabis Use Disorder severe Stimulant Use Disorder severe Overweight, elevated LDL, elevated BP, borderline low B12 - B12 IM given 12/19; continue PO B12; Lipitor and Lisinopril Nicotine Use Disorder - uses nicotine gum Low back pain Possible Legal charges Patient admitted for reckless driving, disorganized thoughts/behaviors, grandiose delusions, reckless spending, appearing gravely disabled concurrent with cannabis and amphetamine abuse and outpatient treatment non-compliance; history of multiple past psychiatric hospitalizations and recurrent medication and treatment non-compliance and past diagnosis of Schizophrenia and Bipolar Disorder. Patient is calm but has poor insight. Patient reportedly unable to function in independent living after separation from in the fall of 2016. Patient has residual symptoms (apathy, poor hygiene, occasional loose associations and illogical thinking). No recent dangerous behaviors. Plan: Patient is on short term certification Patient is on court ordered medications ISB-2 precautions Continue Risperdal SL 2mg TID, started 12/19/17 Patient received first dose of Invega Sustenna 234mg IM 12/26/16 Plan 2nd injection of Invega Sustenna 156 on Monday01/02/18, the discharge if stable Continue Depakene liquid 1000mg QAM and 1500mg QHS Depakote level pending Refer to [facility] or [facility] with brother's support; patient may be able to return to independent living if receiving daily support from brothers Monitor bipolar symptoms and thought organization Refer to [facility] 12/29/17 08:00 Subjective: CC: "I feel great" Patient denies problems. Denies stiffness or slowing or sedation from medication and reports sleeping well. Unable to explain reasons for hospitalization or specific symptoms of mental illness or reasons to continue taking medication after discharge. Agrees to coordinate discharge with brother Logan from [facility] and brother Itz in [place]. Denies AH. Denies violent thoughts. Objective: Vital Signs Temp Pulse Resp BP Pulse Ox 36.6 C 92 16 137/83 H 94 12/29/17 06:00 12/29/17 06:00 12/29/17 06:00 12/29/17 06:00 12/29/17 06:00 Laboratory Results 12/25/17 04:45 Staff report patient cooperative with medications. No rigidity or cogwheeling. Needs prompts for ADLS (meals, showering, changing clothes) with disorganized behavior at times but pleasant and able to attend some groups. Some internal preoccupation and brief laughing. Cooperated with AM blood draw. Alert WM, disheveled. Cooperative and pleasant. No rigidity or cogwheeling. Speech RRR. Smiling and laughing. Thoughts briefly organized with poverty of detail and content, illogical with occasional loose association. Denies AH or paranoia or SI or HI. No insight. Intact orientation to month, year, hospital. Questionable judgment. Depakote level pending today. - Time Spent With Patient Time Spent With Patient: 15 minutes - Pending Discharge Pending Discharge Within 24 Hours: No Pending Discharge Within 48 Hours: No ICD10 Worksheet Patient Problems: Problems Problem Status Onset Ebony Acute Schizoaffective disorder, bipolar type Acute
[2017-12-29] MEDS: VALPROIC ACID 250 MG/5 ML UDCUP PO SCH ×2 (08:22→20:10)
[2017-12-29] MEDS: LISINOPRIL 5 MG TAB PO SCH (08:23)
[2017-12-29] MEDS: ATORVASTATIN CALCIUM 10 MG TAB PO SCH (08:23)
[2017-12-29] MEDS: CYANO/VITAMIN B12 100 MCG TAB PO SCH (08:23)
[2017-12-29] MEDS: RISPERIDONE 2 MG ODT TAB SL SCH ×3 (08:23→20:11)
[2017-12-29] MEDS: NICOTINE 21 MG/24 HR PATCH TD SCH (08:24)
[2017-12-30] MEDS: NICOTINE POLACRILEX 2 MG GUM B PRN (06:56)
[2017-12-30] MEDS: NICOTINE 21 MG/24 HR PATCH TD SCH (08:32)
[2017-12-30] MEDS: VALPROIC ACID 250 MG/5 ML UDCUP PO SCH ×2 (08:32→20:28)
[2017-12-30] MEDS: CYANO/VITAMIN B12 100 MCG TAB PO SCH (08:32)
[2017-12-30] MEDS: LISINOPRIL 5 MG TAB PO SCH (08:32)
[2017-12-30] MEDS: ATORVASTATIN CALCIUM 10 MG TAB PO SCH (08:32)
[2017-12-30] MEDS: RISPERIDONE 2 MG ODT TAB SL SCH ×3 (08:33→20:28)
--- NOTE | 2017-12-30 13:37 | SOAPPROG ---
SOAP Progress Note Assessment/Plan: Assessment: Per Dr. Pratt's notes: Assessment/Plan: Assessment: Schizoaffective Disorder bipolar type Cannabis Use Disorder severe Stimulant Use Disorder severe Overweight, elevated LDL, elevated BP, borderline low B12 - B12 IM given 12/19; continue PO B12; Lipitor and Lisinopril Nicotine Use Disorder - uses nicotine gum Low back pain Possible Legal charges Patient admitted for reckless driving, disorganized thoughts/behaviors, grandiose delusions, reckless spending, appearing gravely disabled concurrent with cannabis and amphetamine abuse and outpatient treatment non-compliance; history of multiple past psychiatric hospitalizations and recurrent medication and MH treatment non-compliance and past diagnosis of Schizophrenia and Bipolar Disorder. Patient is calm but has poor insight. Patient reportedly unable to function in independent living after separation from in the fall of 2016. Patient has residual symptoms (apathy, poor hygiene, occasional loose associations and illogical thinking). No recent dangerous behaviors. Plan: Patient is on short term certification Patient is on court ordered medications ISB-2 precautions Continue Risperdal SL 2mg TID, started 12/19/17 Patient received first dose of Invega Sustenna 234mg IM 12/26/16 Plan 2nd injection of Invega Sustenna 156 on Monday01/02/18, the discharge if stable Continue Depakene liquid 1000mg QAM and 1500mg QHS Depakote level pending Refer to [facility] or [facility] with brother's support; patient may be able to return to independent living if receiving daily support from brothers Monitor bipolar symptoms and thought organization Refer to [facility] 12/30/17 13:33 1. Patient tolerating increased dose of Depakote, denies any complaints. 2. Patient is compliant with court ordered meds. 3. Patient will receive 2nd Invega injection on 01/02/18. 4. Patient reports that his legal charges are "being dropped" so he won't have to appear in court at time of discharge Subjective: Met with patient, reviewed chart and d/w staff. Patient presents calmer, less hyperactive and less pressured speech than last time this MD saw patient. He says he "loves" his Depakote b/c it "helps me" so much. Patient says he was told that police are dropping all charges against in from reckless driving and possession of controlled prescription drug. Objective: Vital Signs Temp Pulse Resp BP Pulse Ox 36.9 C 82 14 115/27 L 98 12/30/17 02:00 12/30/17 02:00 12/30/17 02:00 12/30/17 02:00 12/30/17 02:00 Laboratory Results 12/25/17 04:45 MSE: Mood: "Great" Affect: Euthymic, less elevated than in past TP: More coherent and goal-directed TC: No racing thoughts, denies any SI/HI, no AH/VH Insight/Judgment: Improved - Time Spent With Patient Time Spent With Patient: 20" - Pending Discharge Pending Discharge Within 24 Hours: No Pending Discharge Within 48 Hours: No ICD10 Worksheet Patient Problems: Problems Problem Status Onset Ebony Acute Schizoaffective disorder, bipolar type Acute
[2017-12-31] MEDS: NICOTINE POLACRILEX 2 MG GUM B PRN (03:36)
[2017-12-31] MEDS: LISINOPRIL 5 MG TAB PO SCH (08:45)
[2017-12-31] MEDS: RISPERIDONE 2 MG ODT TAB SL SCH ×3 (08:45→20:42)
[2017-12-31] MEDS: CYANO/VITAMIN B12 100 MCG TAB PO SCH (08:45)
[2017-12-31] MEDS: ATORVASTATIN CALCIUM 10 MG TAB PO SCH (08:45)
[2017-12-31] MEDS: VALPROIC ACID 250 MG/5 ML UDCUP PO SCH ×2 (08:46→20:42)
[2017-12-31] MEDS: NICOTINE 21 MG/24 HR PATCH TD SCH (08:59)
--- NOTE | 2017-12-31 13:06 | SOAPPROG ---
SOAP Progress Note Assessment/Plan: Assessment: Per Dr. Pratt's notes: Assessment/Plan: Assessment: Schizoaffective Disorder bipolar type Cannabis Use Disorder severe Stimulant Use Disorder severe Overweight, elevated LDL, elevated BP, borderline low B12 - B12 IM given 12/19; continue PO B12; Lipitor and Lisinopril Nicotine Use Disorder - uses nicotine gum Low back pain Possible Legal charges Patient admitted for reckless driving, disorganized thoughts/behaviors, grandiose delusions, reckless spending, appearing gravely disabled concurrent with cannabis and amphetamine abuse and outpatient treatment non-compliance; history of multiple past psychiatric hospitalizations and recurrent medication and MH treatment non-compliance and past diagnosis of Schizophrenia and Bipolar Disorder. Patient is calm but has poor insight. Patient reportedly unable to function in independent living after separation from in the fall of 2016. Patient has residual symptoms (apathy, poor hygiene, occasional loose associations and illogical thinking). No recent dangerous behaviors. Plan: Patient is on short term certification Patient is on court ordered medications ISB-2 precautions Continue Risperdal SL 2mg TID, started 12/19/17 Patient received first dose of Invega Sustenna 234mg IM 12/26/16 Plan 2nd injection of Invega Sustenna 156 on Monday01/02/18, the discharge if stable Continue Depakene liquid 1000mg QAM and 1500mg QHS Depakote level pending Refer to [facility] or [facility] with brother's support; patient may be able to return to independent living if receiving daily support from brothers Monitor bipolar symptoms and thought organization Refer to [facility] 12/30/17 13:33 1. Patient tolerating increased dose of Depakote, denies any complaints. 2. Patient is compliant with court ordered meds. 3. Patient will receive 2nd Invega injection on 01/02/18. 4. Patient reports that his legal charges are "being dropped" so he won't have to appear in court at time of discharge 12/31/17 13:02 1. Patient only slept 3 hrs last night. 2. Still tolerating VPA and other meds, no complaints. 3. Stable mood, appropriate behavior - no boundary violations over w/e Subjective: Met with patient, reviewed chart and d/w staff. Patient has been more mindful of boundary issues and 10 ft restriction from peers. He is calmer and more appropriate. He says "I love these medications" and says he feels "happy" but no evidence of elated or elevated mood, no grandiose delusions. Objective: Vital Signs Temp Pulse Resp BP Pulse Ox 36.5 C 81 14 113/71 95 12/31/17 06:47 12/31/17 06:47 12/31/17 06:47 12/31/17 06:47 12/31/17 06:47 Laboratory Results 12/25/17 04:45 MSE: Mood: "Happy" Affect: Euthymic, labile at times (becomes tearful for no reason) TP: Tangential TC: No SI/HI, denies hallucinations, no delusions Insight/Judgment: Improved - Time Spent With Patient Time Spent With Patient: 20" - Pending Discharge Pending Discharge Within 24 Hours: No Pending Discharge Within 48 Hours: No ICD10 Worksheet Patient Problems: Problems Problem Status Onset Ebony Acute Schizoaffective disorder, bipolar type Acute
[2018-01-01] MEDS: NICOTINE POLACRILEX 2 MG GUM B PRN (07:38)
[2018-01-01] MEDS: LISINOPRIL 5 MG TAB PO SCH (08:07)
[2018-01-01] MEDS: NICOTINE 21 MG/24 HR PATCH TD SCH (08:07)
[2018-01-01] MEDS: ATORVASTATIN CALCIUM 10 MG TAB PO SCH (08:07)
[2018-01-01] MEDS: CYANO/VITAMIN B12 100 MCG TAB PO SCH (08:07)
[2018-01-01] MEDS: RISPERIDONE 2 MG ODT TAB SL SCH ×3 (08:08→22:01)
[2018-01-01] MEDS: VALPROIC ACID 250 MG/5 ML UDCUP PO SCH ×2 (08:08→21:55)
--- NOTE | 2018-01-01 13:39 | SOAPPROG ---
SOAP Progress Note Assessment/Plan: Assessment: Schizoaffective Disorder bipolar type Cannabis Use Disorder severe Stimulant Use Disorder severe Overweight, elevated LDL, elevated BP, borderline low B12 - B12 IM given 12/19; continue PO B12; Lipitor and Lisinopril Nicotine Use Disorder - uses nicotine gum Low back pain Patient admitted for reckless driving, disorganized thoughts/behaviors, grandiose delusions, reckless spending, appearing gravely disabled concurrent with cannabis and amphetamine abuse and outpatient treatment non-compliance; history of multiple past psychiatric hospitalizations and recurrent medication and MH treatment non-compliance and past diagnosis of Schizophrenia and Bipolar Disorder. Patient appears markedly improved with better hygiene, more appropriate affect, more organized thinking and better insight. Patients brother reportedly unable to pay for patient to go into [facility] or an [facility]. Plan: Patient is on short term certification Patient is on court ordered medications Continue Risperdal SL 2mg TID Patient received first dose of Invega Sustenna 234mg IM 12/26/16 Plan 2nd injection of Invega Sustenna 156 on Monday01/02/18, the discharge if stable Continue Depakene 1500mg BID Refer to [facility] or [facility] if brother willing to pay cost; patient may be able to return to independent living if receiving daily support from brother and visiting nurse for weekly medication pillbox organization Refer to [facility] 01/01/18 13:39 Subjective: CC: "Dr. Pratt I am glad to see you." Patient reports feeling stable with mood "I feel good and I feel that I am thinking more clearly." Denies racing thoughts or agitation or irritability. Reports "I realize that I need to stay sober. I had a DUI over 20 years ago and I learned my lesson. I am glad the police dropped the charges. I need to take my medications regularly when I leave." Reports interest and motivation in taking psychiatric medications. Denies feeling stiff or tired or weak. Denies paranoia or hallucinations. Reports sleeping well. Objective: Vital Signs Temp Pulse Resp BP Pulse Ox 36.6 C 87 14 123/81 H 97 01/01/18 04:32 01/01/18 04:32 01/01/18 04:32 01/01/18 04:32 01/01/18 04:32 Laboratory Results 12/25/17 04:45 Alert WM. Improved grooming compared to previous. Speech RRR. Mood "I feel good and I feel that I am thinking more clearly." Affect euthymic with smiling. Thoughts organized. Denies paranoia or AH. Denies SI or HI. Markedly improved insight. Appropriate judgment. Staff report patient calm and cooperative and pleasant on unit. Care coordinators report patients brother unwilling or unable to pay cost for patient to go into [facility] or go into an [facility]. - Time Spent With Patient Time Spent With Patient: 20 minutes - Pending Discharge Pending Discharge Within 24 Hours: Yes Pending Discharge Date: 01/02/18 Pending Discharge Time: 11:00 ICD10 Worksheet Patient Problems: Problems Problem Status Onset Ebony Acute Schizoaffective disorder, bipolar type Acute
[2018-01-01] MEDS ORDERED: ASPIRIN 325 MG TAB PO PRN (14:31)
[2018-01-02] MEDS: NICOTINE 21 MG/24 HR PATCH TD SCH (08:28)
[2018-01-02] MEDS: VALPROIC ACID 250 MG/5 ML UDCUP PO SCH ×2 (08:28→20:49)
[2018-01-02] MEDS: CYANO/VITAMIN B12 100 MCG TAB PO SCH (08:29)
[2018-01-02] MEDS: LISINOPRIL 5 MG TAB PO SCH (08:29)
[2018-01-02] MEDS: RISPERIDONE 2 MG ODT TAB SL SCH (08:29)
[2018-01-02] MEDS: ATORVASTATIN CALCIUM 10 MG TAB PO SCH (08:29)
--- NOTE | 2018-01-02 08:56 | SOAPPROG ---
SOAP Progress Note Assessment/Plan: Assessment: Schizoaffective Disorder bipolar type Cannabis Use Disorder severe Stimulant Use Disorder severe Overweight, elevated LDL, elevated BP, borderline low B12 - B12 IM given 12/19; continue PO B12; Lipitor and Lisinopril Nicotine Use Disorder - uses nicotine gum Low back pain Patient admitted for reckless driving, disorganized thoughts/behaviors, grandiose delusions, reckless spending, appearing gravely disabled concurrent with cannabis and amphetamine abuse and outpatient treatment non-compliance; history of multiple past psychiatric hospitalizations and recurrent medication and treatment non-compliance and past diagnosis of Schizophrenia and Bipolar Disorder. Patient appears markedly improved with better hygiene, more appropriate affect, more organized thinking and better insight. Patient has residual negative symptoms of severe mental illness - apathy, limited organization/abstract thinking. Patients brother reportedly unable to pay for patient to go into [facility]. Patient has been referred to [facility] in [facility] but not accepted due to severe mental illness. Plan: Patient is on short term certification Patient is on court ordered medications Patient received first dose of Invega Sustenna 234mg IM 12/26/16 Plan 2nd injection of Invega Sustenna 156mg today 01/02/18 Reduce PO Risperdal 2mg QHS Continue Depakene 1500mg BID Requested director of case management Mya Soria to outreach patients brother Logan to clarify discharge plan, patient will need daily support after discharge to monitor medication compliance 01/02/18 08:57 Subjective: CC: "I'm fine" Patient reports sleeping well. Reports not wanting brother involved in care after meeting yesterday to review plan for brother to obtain guardianship for financial decision making. Reports he is willing to take medications after discharge and attend follow up and medical appointments. Denies stiffness, slowing, or excessive sedation. Objective: Vital Signs Temp Pulse Resp BP Pulse Ox 36.6 C 67 14 131/86 H 96 01/02/18 06:00 01/02/18 06:00 01/02/18 06:00 01/02/18 06:00 01/02/18 06:00 Laboratory Results 12/25/17 04:45 Alert WM, ambulatory without tremors or focal weakness, wide gait. Pleasant. Positive attitude. Speech RRR. Mood 'good.' Affect euthymic. Thoughts organized but poverty of detail/content. Denies SI or HI or AH or paranoia. Fair memory. Limited insight. Appropriate judgment. Staff report patient calm and cooperative on unit without inappropriate behavior. - Time Spent With Patient Time Spent With Patient: 20 minutes - Pending Discharge Pending Discharge Within 24 Hours: Yes Pending Discharge Within 48 Hours: No Pending Discharge Date: 01/03/18 Pending Discharge Time: 11:00 ICD10 Worksheet Patient Problems: Problems Problem Status Onset Ebony Acute Schizoaffective disorder, bipolar type Acute
[2018-01-02] MEDS ORDERED: PALIPERIDONE PALMITATE 156 MG/ML SYR IM ONE ×3 (09:00→12:00)
[2018-01-02] MEDS ORDERED: RISPERIDONE 2 MG ODT TAB SL SCH (21:00)
[2018-01-03] MEDS: NICOTINE POLACRILEX 2 MG GUM B PRN (03:05)
[2018-01-03] MEDS: MELATONIN 3 MG TAB PO PRN (03:53)
[2018-01-03 06:47] VITALS: BP 109/81; PULSE 86; RESP 16; TEMP 97.4; O2SAT 93
[2018-01-03] MEDS: CYANO/VITAMIN B12 100 MCG TAB PO SCH (08:33)
[2018-01-03] MEDS: LISINOPRIL 5 MG TAB PO SCH (08:33)
[2018-01-03] MEDS: ATORVASTATIN CALCIUM 10 MG TAB PO SCH (08:34)
[2018-01-03] MEDS: VALPROIC ACID 250 MG/5 ML UDCUP PO SCH (08:35)
[2018-01-03] MEDS: NICOTINE 21 MG/24 HR PATCH TD SCH (08:35)
--- NOTE | 2018-01-03 09:16 | BDS ---
[f rep st] BEHAVIORAL HEALTH DISCHARGE SUMMARY IDENTIFICATION: This is a 67-year-old white male who lives alone in an apartment in [place]. He is on Social Security Disability. He has 1 brother that lives in [place], who is an estate planning attorney, and 1 brother who lives in [place]. REASON FOR ADMISSION: Please see psychiatric assessment and history from Dr. Barraza from December 15, 2017. The patient had been noncompliant with outpatient mental health treatment with his outpatient psychiatrist where he had previously been prescribed Prolixin. The patient had been using cannabis and amphetamines. He apparently was apprehended by police for driving recklessly. He apparently had been driving up to 100 miles/hour, weaving in and out of traffic, and driving on the shoulder of the road. Due to his bizarre behavior, he was taken to the emergency room by police. There, he was placed on an M1 hold for grave disability. In the ER, he was given Ativan, Haldol, as well as Zyprexa Zydis p.o. for grandiosity, agitation, disorganization. BRIEF PSYCHIATRIC HISTORY: The patient has been in outpatient treatment with Dr. Paulino Maria and been prescribed Prolixin for bipolar disorder versus schizoaffective disorder, bipolar type. The patient had been noncompliant with his medication after and from his about 4 months ago. He had also been noncompliant with medications, probably due to ongoing cannabis and amphetamine abuse. The patient had approximately 3 past psychiatric hospitalizations, but none recently. He denied any history of suicide attempts or violence toward others. ALLERGIES: He has no known drug allergies. MEDICAL HISTORY: He denied chronic medical problems, had a history of a leg injury in the past. He also was found to have hyperlipidemia on the inpatient unit and borderline hypertension. On the unit he was also found to have borderline vitamin B12 deficiency, to be overweight, and to have episodic low back pain. HOSPITAL COURSE: The patient was admitted on an M1 hold and then placed on short-term certification. The patient appeared gravely disabled as he appeared to be both manic and disorganized. He had grandiosity, euphoria, decreased need for sleep, loud, pressured speech, tangential thinking with flight of ideas , and disorganized thinking, poor self-care, poor hygiene. He also on the unit was on inappropriate sexual behavior precautions due to attempting to touch women's feet and making hypersexual statements and drawings in group. The patient had slow improvement. He eventually stabilized with Depakote liquid 1500 mg twice a day for quincy and Risperdal M tab 2 mg t.i.d. The patient had a marked improvement and became more calm, more organized, had improved hygiene , more appropriate behavior, improved impulse control, more appropriate speech patterns and more appropriate interactions with others. The patient did not have any symptoms of dementia. He scored 29/30 on the SLUMS exam and did not appear to have any language or calculation problems or short-term memory problems. Due to concern the patient had chronic mental illness, but some residual Schizophrenia-spectrum symptoms such as impairment in abstract thinking, organization, as well as his history of impulsive behavior when he is having manic symptoms or using substances, there was concern that the patient may struggle with independent living. The patient's brother, Logan, who is an estate planning attorney in [place], faxed 2 letter to the hospital expressing concern that the patient would have difficulty living independently after discharge. The letters outline the patients past erratic behavior, quincy, and disorganization as well as poor self care. On the unit the patient did appear to have possible problems with abstract thinking and organization which are common features of severe mental illness. These deficits would potentially impact the patient's ability to manage his finances, keep track of his medication, keep track of appointments, and attend outpatient appointments. The patient did not appear to have severe cognitive impairment that would require long-term care or require 24-hour direct [id number] supervision. The patient was able to participate in treatment, cooperated with medications, denied thoughts to hurt himself or others, was able to shower, change his laundry, attend meals, and interact appropriately with patients and staff prior to discharge, and was repeatedly compliant with oral medications after we applied for court ordered medications. Due to concerns the patient may have some functional deficits prior to discharge , this physician wrote a letter documenting that the patient did have severe mental illness and would benefit from a guardian for financial decision-making. The patient's brother, Logan, was reportedly applying to the [place] [address] [place] to get guardianship for financial decision-making. There are no known long-term assisted living facilities in the [facility] that will take patients with severe mental illness directly from an inpatient psychiatric unit. The patient was referred to 2 assisted living facilities in the [facility] who immediately rejected the patient's application because he had severe mental illness. This was explained to the patient's brother who is the patient's next of kin and potential guardian. There are 2 units in the [facility] that are short-term residential facilities that accept patients for step-down supervision, support, and treatment after discharge from an inpatient psychiatric hospitalization. The first one is [facility] which is a unit operated by [facility]. They would not accept the patient because the patient did not have [place] [employer], which is the Behavioral Health Medicaid for [facility]. The patient had Social Security benefits which could be used for housing. [facility] only accepts patient who have zero income and have [place] [employer]. This was explained to the patient's brother. The other step-down unit in the area was [facility]. This is a short-term residential facility operated by [facility], which is a private program. The patient signed a release information for this program and was referred there. The patient's brother was notified of this program. The patient's brother was either unable or unwilling to pay the cost for the patient to go to [facility] for 1 month after discharge from the hospital. Due to a lack of alternative discharge options, and the brother's unwillingness or inability to pay for [facility], the pet caretaker and myself spoke to the patient's brother regarding the patient returning to his apartment short- term with intensive supports. The patient's brothers reportedly will be able to meet with the patient daily at home to check on his welfare. They will also assist the patient in organizing a pillbox once a week and then getting a visiting nurse to visit once a week to organize the pillbox after that. They would assist the patient in getting to his follow up mental health and PCP appointments. The patient was also agreeable to meet with a renal social worker at his primary care clinic so that the patient could have his medication organization and medication orders coordinated with his primary care provider. The patient was also referred to [facility] [employer] [facility] for assistance with meals. The patient's outpatient psychiatrist, Dr. Maria, requested that the patient have psychiatric followup at [facility] due to the complexity of his symptoms and service needs. In particular, the patient had substance use disorder, had case management needs, and was on Invega Sustenna injections prior to discharge. Due to these complex needs, the patient was referred to [facility] for mental health followup and medication management after discharge. Initially the patient spit out and refused a trial of Prolixin, which the patient had previously taken. After that the patient consented for court- ordered medications. After the patient stabilized on a combination of liquid Depakote 1500 mg twice a day and Risperdal M tab 2 mg p.o. t.i.d., then the patient was started on Invega Sustenna injections. He was given 234 mg IM on December 26, 2016. His 2nd injection was 156 mg on January 02, 2018. After that dose, the patient's oral Risperdal was reduced to 2 mg at night for a taper over 1 week. On the unit, the patient did have hyperlipidemia and was given Lipitor for high cholesterol. He was given a nicotine patch for nicotine use disorder, lisinopril 5 mg daily for hypertension. The patient did have borderline vitamin B12 deficiency. He was given a vitamin B12 injection and then started on oral vitamin B12, cyanocobalamin 100 mcg by mouth daily. The patient was warned about the risks of Depakote causing sedation, thrombocytopenia, pancreatitis, and hepatitis. He was warned about risperidone and Invega causing hyperlipidemia, metabolic syndrome, extrapyramidal side effects, neuroleptic malignant syndrome, tardive dyskinesia, and gynecomastia, and sedation. CONDITION ON DISCHARGE: He is an alert white male in no acute distress. He is tall with long hair. He is overweight. He is ambulatory with a wide gait. His speech is regular rate and rhythm. His mood is 'good' and his affect is euthymic and pleasant. His thoughts are organized with poverty of information, poverty of content. He makes odd statements but does not have any fixed delusions. He denies any thoughts to hurt himself or others. He denies auditory hallucinations or paranoia. He is agreeable to be discharged back to his apartment with a positive attitude. He is agreeable to have his brothers visit him daily and assist him with pillbox organization and to follow up at [facility] for mental health treatment after discharge. He is also agreeable to follow up with his primary care provider, Guillermo Mcdermott, after discharge for his medical issues. CONSULTATIONS: The patient had a baseline physical exam by the hospitalist, Dr. Chapman, on December 16, 2017. PROCEDURES ON THE UNIT: None. However, in the Emergency Department prior to admission, the patient had an electrocardiogram on December 14, 2017. This showed tachycardia with a heart rate of 111, QTc interval 479 msec. He also [facility] a [facility]. This showed no intracranial hemorrhage, mass, or acute process with mild atrophy and mild periventricular white matter disease. LABS: On December 14, 2017, he had a white blood cell count 11.0, hemoglobin 17.3, platelet count 273. Sodium 141, potassium 3.7, creatinine 0.6, glucose 110, calcium 10.2. His urine drug screen was positive for amphetamines and cannabis. On December 18, he had an AST 22, ALT 25, triglycerides 84, LDL 195 , HDL 49, B12 281. December 14, he had a TSH of 1.8. His urine drug screen was positive for amphetamines and cannabis on December 14. DISCHARGE DIAGNOSES: Schizoaffective disorder - bipolar type Cannabis use disorder severe Stimulant use disorder severe Overweight Hyperlipidemia with an elevated LDL, Hypertension Borderline vitamin B12 deficiency Nicotine use disorder. DISCHARGE MEDICATIONS: Cyanocobalamin 100 mcg by mouth daily. Of note, the patient received an IM injection of vitamin B12 on December 19, nicotine patch 21 mg transdermal daily [id number], Lipitor 10 mg by mouth daily, lisinopril 5 mg by mouth daily, Depakote 1500 mg by mouth twice a day, Risperdal 2 mg by mouth at bedtime for 1 week and then stop. This medication should be discontinued earlier than 1 week if having severe sedation, tremors, or slowing, Invega Sustenna injection 156 mg. Next injection is due January 30, 2018. This was written to only be filled at the [facility] at [facility] at [address] [place] [address]. This is the main pharmacy used by [facility]. DISPOSITION: The patient is leaving the unit with his brothers who will assist him in filling his prescriptions, organizing a pillbox, and assisting him in getting to outpatient followup. REFERRALS: The patient will follow up with Dr. Guillermo Mcdermott, his primary care provider, for his medical issues. The patient was referred to a home health agency. The patient was referred to [facility] with [facility], but the patients brothers have not agreed to pay that facility for the patient to stay there currently. On the patient's discharge instructions, the patient was advised to have his lipids, glucose, and vitamin B12 levels checked in 1 month. The patient was referred to [facility] for ongoing psychiatric treatment. The patient has an intake appointment listed in the discharge paperwork by the pet caretaker. OTHER INSTRUCTIONS: The patient should not drive until having a driving test by the Department of Motor Vehicles. He should not drink alcohol, smoke cannabis, or use illicit drugs. Other instructions, the patient was referred to a home health agency for in-home nursing visits to organize a pillbox once a week, occupational therapy assessment, and social work assessment. The patient' s oral medications were written for 1 month with 1 refill. The Invega Sustenna injection was written for 1 dose only to be given on Monday, January 30. The risperidone tablet was written as a 1-week supply only as this medication should be discontinued as the patient is transitioning from Risperdal to the Invega Sustenna injections. LEGAL STATUS: The patient was admitted on an M1 hold. He was then placed on short-term certification. This physician applied for court-ordered medications. The patient consented and stipulated for this. The patient's certification will be terminated upon discharge so the patient will be a voluntary patient after discharge. /[id number]/MODL [id number]
== END 2018-01-03 13:55 | disposition home or self-care (01) | DRG 885 ==
LOC: EEVIPCON 15:55 → BBEH 12-15 09:12
PROVIDERS: ADMIT Psychiatry & Neurology Psychiatry; ATTEND Psychiatry & Neurology Psychiatry
DX: F31.2 Bipolar disorder, current episode manic severe with psychotic features (principal); F12.90 Cannabis use, unspecified, uncomplicated; F15.90 Other stimulant use, unspecified, uncomplicated; Z91.19 Patient's noncompliance with other medical treatment and regimen; Z91.14 Patient's other noncompliance with medication regimen; E53.8 Deficiency of other specified B group vitamins; E66.3 Overweight; Z68.27 Body mass index [BMI] 27.0-27.9, adult; E78.5 Hyperlipidemia, unspecified; R00.0 Tachycardia, unspecified; I10 Essential (primary) hypertension; F17.210 Nicotine dependence, cigarettes, uncomplicated; M54.5 Low back pain
CPT/HCPCS: 80305; 82607-90; 84481-90; 96374; J1630; J2060; J2426; J3420

== ENCOUNTER 2018-09-24 18:07 | Inpatient (IN) | payer OTHER ==
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
[2018-09-24 18:38] LABS: PLATELET COUNT 282 10^3/uL (150-400)
[2018-09-24] MEDS ORDERED: HALOPERIDOL LACT 5 MG/ML INJ IM ONE (19:31)
[2018-09-24] MEDS ORDERED: LORazepam 2 MG/ML INJ IM ONE (19:31)
[2018-09-24] MEDS ORDERED: LORazepam 1 MG TAB ONE (19:48)
[2018-09-24] MEDS ORDERED: OLANZapine DISINTEGR 10 MG TAB ONE (19:48)
[2018-09-24] MEDS ORDERED: OLANZapine DISINTEGR 10 MG TAB PO ONE (19:50)
[2018-09-24] MEDS ORDERED: LORazepam 1 MG TAB PO ONE (19:50)
[2018-09-25] MEDS: NICOTINE POLACRILEX 2 MG GUM B PRN ×4 (06:43→18:33)
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
--- NOTE | 2018-09-25 07:10 | ASMTTCLDSP ---
TLC Discharge Disposition Disposition: Answers: Admit Disposition Notes: Notes: Admit [facility]. Discharge Concerns/Recommendations: Notes: In consultation with [facility] ED physician, Erick Guy MD and on-call advanced psychiatric nurse, Eleno Choi APN, both concurred that pt appears to meet 27-65 criteria requiring psychiatric hospitalization as pt appears to be gravely disabled due to a mental illness condition. Pt was given but declined to sign the [facility] prohibited belongings list while in the ED. Was patient given the Answers: Yes Inpatient Behavioral Health Prohibited Belongings List while in the ED? For inpatient Eleno Choi APN admission, the following psychiatrist agreed to accept patient for admission to Behavioral Health ([facility]): Type of Hold: Answers: M1/72-hour Hold Hold initiated by: Answers: Other Notes: Jenny Tyler SW Date Signed: 09/25/2018 07:09 AM Electronically Signed By:Percy Musa
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
[2018-09-25] MEDS ORDERED: LORazepam 0.5 MG TAB PO PRN (11:27)
[2018-09-25] MEDS ORDERED: MAG HYDROX/AL HYDROX/SIMETH 30 ML UDCUP PO PRN (11:27)
[2018-09-25] MEDS ORDERED: OLANZapine DISINTEGR 10 MG TAB PO PRN (11:27)
[2018-09-25] MEDS ORDERED: MAGNESIUM HYDROXIDE 30 ML UDCUP PO PRN (11:27)
[2018-09-25] MEDS ORDERED: ACETAMINOPHEN 325 MG TAB PO PRN (11:27)
--- NOTE | 2018-09-25 11:43 | PDMN ---
Medical Necessity Medical necessity: [facility] [id number] Schizophrenia Spectrum Disorders, Adult: Inpatient Care: 67 yo w/ schizoaffective d/o, bipolar type, cannabis use d/o, severe, and amphetamine type substance use d/o, severe. On M1 hold, gravely disabled.
[2018-09-25] MEDS: NICOTINE 21 MG/24 HR PATCH TD SCH (13:57)
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
--- NOTE | 2018-09-25 15:30 | BCON ---
INTERNAL MEDICINE CONSULTATION DATE OF CONSULTATION: 09/25/2018 REFERRING PHYSICIAN: Eleno Choi NP REASON FOR REFERRAL: Medical clearance for inpatient behavioral health stay. HISTORY OF PRESENT ILLNESS: This patient came to the emergency department yesterday brought in by police on an M1 hold. He was found disheveled and covered in urine and feces in a dirty apartment, and he was delusional. He was evaluated by the mental health team and admitted for further psychiatric care. He is currently without any acute complaints. PAST MEDICAL HISTORY: 1. Schizoaffective disorder. 2. Hypertension. 3. Dyslipidemia. 4. Left tibia-fibula fracture. 5. Polysubstance abuse, including amphetamines and marijuana. PAST SURGICAL HISTORY: He has had several surgeries to repair his left tibia/ fibula fracture. MEDICATIONS: He was noncompliant and taking no medications. He reports he has previously taken medications for high blood pressure and high cholesterol, as well as psychiatric medications. ALLERGIES: There are no known drug allergies. SOCIAL HISTORY: He has been living with a roommate. He is a smoker. He uses marijuana regularly. He is not interested in smoking cessation. He is vague about his employment history. 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 FAMILY HISTORY: Noncontributory. REVIEW OF SYSTEMS: He reports his weight has been stable. He denies fevers or chills. He has an occasional smoker's cough. He denies dyspnea. He denies nausea, vomiting, constipation, or diarrhea. He denies dysuria or urinary frequency. He denies joint pain or joint swelling, other than occasional "1/10 " pain in the left knee. Otherwise, a 10-point review of systems is negative. PHYSICAL EXAM: VITAL SIGNS: Blood pressure is 154/86, and has ranged from 133 to 180 systolic and from 83 to 98 diastolic since he presented at the emergency department yesterday. Heart rate is 85, respiratory rate is 14, oxygen saturation 95% on room air. Temperature is 37.4 degrees centigrade. His weight is 111 kg for a body mass index of 30.6. GENERAL: This is an obese, unkempt man,sitting up on the edge of the bed, cooperative, and in no acute distress. HEENT: Extraocular movements are intact. Pupils are equal, round, and reactive to light. Mucous membranes are moist. Dentition is in good condition. He has an uncrowded airway, Mallampati class 2. NECK: Supple. HEART: There is a regular rate and rhythm with no murmurs, rubs, or gallops. There is jugular venous distention. LUNGS: Clear to auscultation bilaterally. ABDOMEN: Obese and benign. EXTREMITIES: There is no cyanosis, clubbing, or edema. Radial and dorsalis pedis pulses are 2+ bilaterally. NEUROLOGIC: He is alert and oriented x3. Cranial nerves 2-12 are grossly intact. There is no focal weakness. Sensation is intact to light touch and gait is within normal limits. LABORATORY STUDIES: From yesterday, CBC was entirely within normal limits. Serum chemistry revealed a slightly elevated glucose at 102. but this was likely not fasting. Otherwise, renal function and electrolytes were normal. Toxicology screen in the urine was non-negative for marijuana, but otherwise negative for substances of abuse. On review of past labs, he had marked dyslipidemia in November of this year with a total cholesterol of 260, LDL of 195, and an HDL of 49. Subsequently, presumably on medication in April of this year, total cholesterol was 207, LDL was 149, and HDL was 41. He had a normal TSH in April of this year. ASSESSMENT/RECOMMENDATIONS: 1. Mental health issues pending further evaluation and management per Psychiatry and the mental health team. 2. Obesity. Consider caution prescribing medications that could cause increased weight gain. 3. Tobacco dependence syndrome. He is not interested in smoking cessation. 4. Dyslipidemia based on his lipid panel from November of this year. Given his age and smoking history, his 10 year risk of heart disease or stroke is 28.4 % and he would benefit from being on a moderate intensity statin. I will prescribe atorvastatin. 5. History of hypertension. Blood pressures have been elevated, but also at times at target for primary prevention during his stay so far. Continue to monitor blood pressures and will have a low threshold to treat. Amlodipine might be first choice as there would be no need for further laboratory testing and has no interactions with any psychiatric medications. I see no medical contraindications to this patient's continued stay on the inpatient behavioral health unit or to any psychiatric medications or procedures. Thank you very much for including me in the care of this patient and please do not hesitate to contact me or the hospitalist service should there be need for further medical evaluation. /[id number]/MODL MTDD
[2018-09-25] MEDS: TOPIRAMATE 100 MG TAB PO SCH (20:18)
[2018-09-25] MEDS: risperiDONE 1 MG TAB PO SCH (20:18)
[2018-09-26] MEDS: NICOTINE POLACRILEX 2 MG GUM B PRN ×4 (06:03→23:16)
[2018-09-26] MEDS: TOPIRAMATE 100 MG TAB PO SCH ×2 (08:13→21:02)
[2018-09-26] MEDS: ATORVASTATIN CALCIUM 40 MG TAB PO SCH (08:13)
[2018-09-26] MEDS: NICOTINE 21 MG/24 HR PATCH TD SCH (08:13)
[2018-09-26] MEDS: CIMETIDINE PO SCH ×2 (13:08→21:03)
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
[2018-09-26] MEDS: risperiDONE 1 MG TAB PO SCH (21:02)
[2018-09-27] MEDS: NICOTINE POLACRILEX 2 MG GUM B PRN ×8 (01:57→15:08)
[2018-09-27] MEDS: ATORVASTATIN CALCIUM 40 MG TAB PO SCH (08:54)
[2018-09-27] MEDS: TOPIRAMATE 100 MG TAB PO SCH ×2 (08:54→20:18)
[2018-09-27] MEDS: NICOTINE 21 MG/24 HR PATCH TD SCH (08:54)
[2018-09-27] MEDS: CIMETIDINE PO SCH ×2 (11:42→20:18)
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
--- NOTE | 2018-09-27 12:31 | ASMTCMCOM ---
CM Note CM Note Notes: Pt. reports feeling "fine, starving". Pt. stated he slept "like a rock", adding pt "always sleep 6.5 hours now". Pt. stated it was "driving me crazy being here this morning" adding his morning got better once he remember he could have tea. Pt. stated he is "leaving at 9:00am". Pt. stated he is not attending group, but "did a sketch and a poem". Pt. stated "God I love doing art". Pt. stated he can fill and take his medications upon discharge. Pt. stated he can get himself to follow up appointments, adding "there are no appointments". Pt. denied SI, HI, AVH and paranoia. Pt. stated he came to a realization and "paranoia just vanished". Pt. stated "I miss my ", adding he met her two weeks ago. Pt. stated "we are going on a honeymoon till June". Pt. attended the treatment team meeting, pt agreed to stay voluntarily stating "just let me know". Pt. stated he does "a sketch everyday, write a poem every day". Pt. stated he has been speaking to with , but could not explain to staff how. Pt. denied calling her or her visiting. Pt. presents as alert, calm, delusional, good eye contact, cooperative, and with a mostly friendly demeanor. Staff report pt. sleeping 8.5 hours and being medication compliant. Pt. signed an KARIE for his brother Logan. ([phone]) Date Signed: 09/27/2018 12:31 PM Electronically Signed By:Danielle Ríos
[2018-09-27] MEDS: risperiDONE 1 MG TAB PO SCH (20:18)
[2018-09-28] MEDS: NICOTINE POLACRILEX 2 MG GUM B PRN ×5 (01:22→13:12)
[2018-09-28] MEDS: NICOTINE 21 MG/24 HR PATCH TD SCH (07:19)
[2018-09-28] MEDS: ATORVASTATIN CALCIUM 40 MG TAB PO SCH (07:19)
[2018-09-28] MEDS: TOPIRAMATE 100 MG TAB PO SCH ×2 (07:19→20:44)
[2018-09-28] MEDS: CIMETIDINE PO SCH ×2 (07:20→21:19)
--- NOTE | 2018-09-28 10:48 | ASMTCMCOM ---
CM Note CM Note Notes: Pt. reports feeling "good". Pt. stated he slept "fantastic". Pt. stated he is not attending groups, adding "oh no, there is no reason to go". Pt. stated he "talk to my all the time, haven't seen her yet". Pt. discussed how his has known him for almost his entire life. Pt. reports no issues with his current medications. Pt. 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 Pt. stated he has two daughters. Pt. stated his daughters are 24 and 44 and were born two weeks apart. Pt. denied SI, HI, AVH and paranoia. Pt. presents as alert, calm, good eye contact, cooperative, and with a mostly friendly demeanor. Staff report pt. sleeping 8.5 hours and being medication compliant. Date Signed: 09/28/2018 10:47 AM Electronically Signed By:Danielle Ríos
--- NOTE | 2018-09-28 12:04 | SOAPPROG ---
SOAP Progress Note Assessment/Plan: Assessment: Plan: 09/26/18 14:33 Psychosis: Remains acutely psychotic with manic tone. Will increase Risperdal to 2mg, continue Topamax. Will contact pt's brother for collateral information but don't have his number at this time. 09/27/18 12:14 Psychosis: Remains quite psychotic. Will increase Risperdal to 3mg, monitor. Have brother's phone number now. Will call. 09/28/18 12:06 Psychosis: No change. CCM. Unsure how to accomplish "ideal" d/c plan. Brother is guardian and needs to direct this. Subjective: Pt seen, discussed with staff. Reports feeling "great." Continues to demonstrate disorganized thinking and disordered behaviors. Incontinent of urine at times. Remains engrossed in delusional systems, unable to engage in discussion of treatment or discharge without reference to these. Continues to interfere with reasonable discourse and decision-making. Brother sent email demanding some form of residential or locked residential placement. Pt remains compliant with medications. Tolerating them without side effects. Objective: Vital Signs Temp Pulse Resp BP Pulse Ox 36.6 C 72 16 121/75 H 96 09/28/18 06:00 09/28/18 06:00 09/28/18 06:00 09/28/18 06:00 09/28/18 06:00 MSE: Disheveled, interactive, pleasant. Affect is elevated, expansive. Mood is "great" TP is tangential with some perseveration on delusional themes. TC reveals continued paranoid, grandiose and zoroastrianism delusions. Appears to RIS at times. - Time Spent With Patient Time Spent With Patient: 15" ICD10 Worksheet Patient Problems: Problems Problem Status Onset Schizoaffective disorder, bipolar type Acute Ebony Acute
[2018-09-28] MEDS: risperiDONE 1 MG TAB PO SCH (20:44)
[2018-09-29] MEDS: NICOTINE POLACRILEX 2 MG GUM B PRN ×4 (04:45→19:29)
[2018-09-29] MEDS: CIMETIDINE PO SCH ×2 (08:11→19:31)
[2018-09-29] MEDS: NICOTINE 21 MG/24 HR PATCH TD SCH (08:13)
[2018-09-29] MEDS: TOPIRAMATE 100 MG TAB PO SCH ×2 (08:13→19:29)
[2018-09-29] MEDS: ATORVASTATIN CALCIUM 40 MG TAB PO SCH (08:13)
--- NOTE | 2018-09-29 10:13 | SOAPPROG ---
SOAP Progress Note Assessment/Plan: Assessment: 67yo w/ Schizoaffective d/o, subst use (hx THC, meth), chronic delusions, admitted due to grave disability and florid psychosis in the community, disorganized. Currently vol. On risperdal with hx of + response. Brother is guardian. Medically with HTN, dyslipidemi on atorvastating, hx of L tib/fib fx 09/29/18 10:14 per staff ,slept 3hr. told RN he was up all night painting portraits of himself and writing poetry. on eval, pt reports "[facility] made contact with me". States he was admitted b/c he was feeling "wiped out...exhaustion" but now feeing "great" and so is hoping for d/c soon. denied poor sleep, rather "6 1/2 hours, like a log" and was sleeping too much when at [employer], "10hrs in April". Maintains he likes to paint paintings and write songs in the middle of the night. Has been talking with his "all the time" since in the hospital, altho records indicate he is . denies med s/e and states it would be fine to increase his HS risperdal which is presently only at 1mg. "I don't notice it". 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 no other complaints. no physical c/o. mse: pleasant, cooperative, disheveled, appears unshowered, good e/c, nml speech rate/vol, affect elevated/bright, mood "great", +delusional and reports in constant communication with his . noted by staff to be responding to internal stimuli when in room alone. i/j poor although agrees to meds. A&Ox3. PLAN: continue current meds. increase risperdal to 2mg hs. vol. would consider M-1 if pt does insist for d/c b/c continues gravely disabled with poor insight, and still with psychosis. Objective: Vital Signs Temp Pulse Resp BP Pulse Ox 36.6 C 74 14 143/68 H 98 09/29/18 06:00 09/29/18 06:00 09/29/18 06:00 09/29/18 06:00 09/29/18 06:00 - Time Spent With Patient Time Spent With Patient: 25min - Pending Discharge Pending Discharge Within 24 Hours: No Pending Discharge Within 48 Hours: No ICD10 Worksheet Patient Problems: Problems Problem Status Onset Schizoaffective disorder, bipolar type Acute Ebony Acute
--- NOTE | 2018-09-29 12:07 | ASMTCMCOM ---
CM Note CM Note Notes: Pt. was sitting on his bed when CC approached to speak. Pt. reports feeling "great". Pt. stated he slept "great". Pt. stated he is getting enough to eat, adding "love the food". Pt. stated "no issues" with his medications, adding he just spoke with the MD who will increase one of pt's medications. Pt. stated he thinks he may discharge today. Pt. reports no concerns with discharging today. Pt. stated his is waiting at home. Pt. denied SI, HI, AVH and paranoia. Pt. requested CC check on pt's discharge date. Pt. presents as alert, calm, cheerful, good eye contact, cooperative, and with a mostly pleasant demeanor. Staff report pt. sleeping 3 hours and being medication compliant. Date Signed: 09/29/2018 12:06 PM Electronically Signed By:Danielle Ríos
[2018-09-29] MEDS ORDERED: risperiDONE 1 MG TAB PO SCH (15:06)
[2018-09-30] MEDS ORDERED: NICOTINE POLACRILEX 2 MG GUM B ONE (00:52)
[2018-09-30] MEDS: NICOTINE POLACRILEX 2 MG GUM B PRN ×3 (05:18→18:49)
[2018-09-30] MEDS: CIMETIDINE PO SCH ×2 (08:16→20:09)
[2018-09-30] MEDS: NICOTINE 21 MG/24 HR PATCH TD SCH (08:18)
[2018-09-30] MEDS: TOPIRAMATE 100 MG TAB PO SCH ×2 (08:18→20:09)
[2018-09-30] MEDS: ATORVASTATIN CALCIUM 40 MG TAB PO SCH (08:18)
--- NOTE | 2018-09-30 12:38 | SOAPPROG ---
SOAP Progress Note Assessment/Plan: Assessment: 67yo w/ Schizoaffective d/o, subst use (hx THC, meth), chronic delusions, admitted due to grave disability and florid psychosis in the community, disorganized. Currently vol. On risperdal with hx of + response. Brother is guardian. Medically with HTN, dyslipidemi on atorvastating, hx of L tib/fib fx 09/29/18 10:14 per staff ,slept 3hr. told RN he was up all night painting portraits of himself and writing poetry. on eval, pt reports "[facility] made contact with me". States he was admitted b/c he was feeling "wiped out...exhaustion" but now feeing "great" and so is hoping for d/c soon. denied poor sleep, rather "6 1/2 hours, like a log" and was sleeping too much when at [place], "10hrs in April". Maintains he likes to paint paintings and write songs in the middle of the night. Has been talking with his "all the time" since in the hospital, altho records indicate he is . denies med s/e and states it would be fine to increase his HS risperdal which is presently only at 1mg. "I don't notice it". 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 no other complaints. no physical c/o. mse: pleasant, cooperative, disheveled, appears unshowered, good e/c, nml speech rate/vol, affect elevated/bright, mood "great", +delusional and reports in constant communication with his . noted by staff to be responding to internal stimuli when in room alone. i/j poor although agrees to meds. A&Ox3. PLAN: continue current meds. increase risperdal to 2mg hs. vol. would consider M-1 if pt does insist for d/c b/c continues gravely disabled with poor insight, and still with psychosis. 09/30/18 12:36 per staff, slept 4.5h. staff reports pt sleeps naked. did take shower yesterday , and put on clean clothes. smells better now. continues to talk to unseen others and respond to internal stimuli in room. pleasant and cooperative. not attending groups. taking meds. on brief eval, pt lying in bed, was nude but stated "wait, let me pull the blankets up". denied any med s/e. states he didn't even notice (clinically) the increase in Risperdal except that he took 2 pills. Agreed to further increase to 3mg as was planned target dose prior to w/e. mse: pleasant, cooperative, appropriate e/c, nml speech rate/vol, affect full, mood "good" and hoping to go home soon. +grandiose delusional, denied any AH/VH but staff still note +RIS in room alone. denied any SI or thoughts to harm othes. i/j poor/poor. PLAN: -incr Risperdal to 3mg qhs and monitor for any s/e. this was target dose for last week. -still not sleeping well. altho may not be helpful, will try sched Melatonin 3mg at hs. still not sleeping. could also try Benadryl which would also offset any EPS but also need to consider anticholinergic effects in 67yo -vol. would consider M-1 if pt does insist for d/c b/c continues gravely disabled with poor insight, and still with psychosis. Objective: Vital Signs Temp Pulse Resp BP Pulse Ox 37.1 C 74 15 132/93 H 97 09/30/18 06:00 09/30/18 06:00 09/30/18 06:00 09/30/18 06:00 09/30/18 06:00 Medications Generic Name Dose Route Start Last Admin Trade Name Freq PRN Reason Stop Dose Admin Topiramate 100 mg 09/25/18 21:00 09/30/18 08:18 Topamax PO 03/24/19 20:59 100 mg BID JOSE Atorvastatin Calcium 40 mg 09/26/18 09:00 09/30/18 08:18 Lipitor PO 03/25/19 08:59 40 mg DAILY JSOE Lorazepam 0.5 - 1 mg 09/25/18 11:27 Ativan PO 03/24/19 11:26 Q6HRS PRN Anxiety, Able to Take PO Nicotine 21 mg 09/25/18 14:00 09/30/18 08:18 Nicoderm Cq TD 03/24/19 13:59 21 mg DAILY JOSE Nicotine Polacrilex 2 mg 09/25/18 06:40 09/30/18 09:13 Nicorette B 03/24/19 06:39 2 mg PRN PRN Nicotine Withdrawal Olanzapine 10 mg 09/25/18 11:27 Zyprexa Zydis PO 03/24/19 11:26 Q6H PRN Agitation, Psychosis Risperidone 2 mg 09/29/18 15:06 09/29/18 19:29 Risperdal PO 03/24/19 20:59 2 mg HS JOSE - Time Spent With Patient Time Spent With Patient: 15min - Pending Discharge Pending Discharge Within 24 Hours: No Pending Discharge Within 48 Hours: No ICD10 Worksheet Patient Problems: Problems Problem Status Onset Schizoaffective disorder, bipolar type Acute Ebony Acute
[2018-09-30] MEDS: MELATONIN 3 MG TAB PO SCH (20:09)
[2018-09-30] MEDS: risperiDONE 1 MG TAB PO SCH (20:09)
[2018-10-01] MEDS: NICOTINE POLACRILEX 2 MG GUM B PRN ×3 (04:36→17:52)
[2018-10-01] MEDS: CIMETIDINE PO SCH ×2 (08:21→20:44)
[2018-10-01] MEDS: TOPIRAMATE 100 MG TAB PO SCH ×2 (08:21→20:43)
[2018-10-01] MEDS: NICOTINE 21 MG/24 HR PATCH TD SCH (08:21)
[2018-10-01] MEDS: ATORVASTATIN CALCIUM 40 MG TAB PO SCH (08:21)
--- NOTE | 2018-10-01 14:27 | ASMTBHDC ---
Notes Note: Notes: CC called [facility] and spoke with Severino. He requested PPWR be faxed over. Ct. also needs to have a PASSAR in ordered to be considered at [facility]. CC faxed requested PPWR over. Date Signed: 10/01/2018 02:27 PM Electronically Signed By:Karen Streeter
--- NOTE | 2018-10-01 14:31 | ASMTCMCOM ---
CM Note CM Note Notes: CC checked in with ct. He was initially pleasant but became upset about his brother wanting him in a penitentiary. He said that he doesn't need a penitentiary and that he would like to return home when he is ready for discharge. Date Signed: 10/01/2018 02:30 PM Electronically Signed By:Karen Streeter
[2018-10-01] MEDS: risperiDONE 1 MG TAB PO SCH (20:43)
[2018-10-01] MEDS: MELATONIN 3 MG TAB PO SCH (20:43)
[2018-10-02] MEDS: NICOTINE POLACRILEX 2 MG GUM B PRN ×4 (06:04→21:42)
[2018-10-02] MEDS: NICOTINE 21 MG/24 HR PATCH TD SCH (08:31)
[2018-10-02] MEDS: CIMETIDINE PO SCH ×2 (08:31→19:42)
[2018-10-02] MEDS: TOPIRAMATE 100 MG TAB PO SCH ×2 (08:31→19:42)
[2018-10-02] MEDS: ATORVASTATIN CALCIUM 40 MG TAB PO SCH (08:31)
--- NOTE | 2018-10-02 10:43 | SOAPPROG ---
SOAP Progress Note Assessment/Plan: Assessment: Plan: 09/26/18 14:33 Psychosis: Remains acutely psychotic with manic tone. Will increase Risperdal to 2mg, continue Topamax. Will contact pt's brother for collateral information but don't have his number at this time. 09/27/18 12:14 Psychosis: Remains quite psychotic. Will increase Risperdal to 3mg, monitor. Have brother's phone number now. Will call. 09/28/18 12:06 Psychosis: No change. CCM. Unsure how to accomplish "ideal" d/c plan. Brother is guardian and needs to direct this. 10/02/18 10:45 Psychosis: Some improvement. CCM. Continue d/c planning. Subjective: LATE ENTRY FOR 10/01/18 Pt seen, discussed with staff, interviewed in Treatment Team meeting. He remains cooperative and compliant, pleasant with staff and fellow patients. Spending more time alone in his room now. Team discussed with pt his brother's desire for him to go to a SNF after discharge and not return to an independent living circumstance. He does not agree with this, stating, "I can take care of myself." We discussed numerous events and points of history that argue otherwise and he is accepting of this, but states he has a lawsuit against his brother to remove him as guardian and will discharge himself when that is completed. Objective: Vital Signs Temp Pulse Resp BP Pulse Ox 36.6 C 74 15 133/91 H 94 10/02/18 06:00 10/02/18 06:00 10/02/18 06:00 10/02/18 06:00 10/02/18 06:00 MSE: Marginally groomed, cooperative, interactive. States he is "lonely because I have never been away from my before." Affect is elevated with inappropriate laughter, labile. Mood is "great." TP is disorganized with some blocking. TC reveals grandiose, erotomanic, and alevism delusions as before and AH's and IOR's. Denies SI/HI/. - Time Spent With Patient Time Spent With Patient: 25" ICD10 Worksheet Patient Problems: Problems Problem Status Onset Schizoaffective disorder, bipolar type Acute Ebony Acute
--- NOTE | 2018-10-02 13:02 | ASMTCMCOM ---
CM Note CM Note Notes: Client appears to be doing semi-better than previous days; however, isolates to this room a lot. Per previous information, CC will start on client's PASAAR process.* Date Signed: 10/02/2018 01:01 PM Electronically Signed By:Joss Jones
--- NOTE | 2018-10-02 13:21 | SOAPPROG ---
SOAP Progress Note Assessment/Plan: Assessment: Schizoaffective disorder, bipolar type. Cannabis Use Disorder, Severe. No improvement noted. (see subjective/objective note). Patient is not safe to discharge at this time as patient continues to exhibit signs of psychosis, and express psychosis symptoms. Patient requires continued inpatient care because of current psychosis, and requires inpatient level of care to stabilize in order to no longer be gravely disabled due to mental illness. Due to patients current, acute psychotic state he is unable to communicate his basic needs and requires direction and prompting from staff to perform ADLs. Patient exhibits inability to provide for himself, neglecting self-care, withdrawn from social interactions, and currently shows inability to maintain any appropriate aspect of personal responsibility as an adult. No current support system for patient to manage functional impairment at lower level of care. Patient could benefit from continued inpatient hospitalization for crisis stabilization, safety, and medication evaluation. Plan: 1. Psychotropic medications: After reviewing options, risks, and benefits patient agrees to continue current medications. No medication changes at this time as more time is needed to determine ongoing tolerability and efficacy. Plan is to continue to observe patient for response and side effects from medications, and ongoing monitoring and evaluation. 2. Review with patient informed consent and recommendations for psychotropic medication treatment listed below 3. Labs: no additional labs at this time. 4. Therapy: continue milieu and group therapy 5. Further investigation including gathering information from patients relatives and review of past case records to inform treatment plan. 6. Safety/Wellness plan and follow-up outpatient appointments to be established prior to discharge. Next steps are for patient to meet with intensive care ambulance paramedic to plan a safe discharge plan and establish outpatient services for ongoing treatment. 7. Confer with inpatient treatment team regarding treatment plan. 8. Psychosocial stressors addressed through window caser 9. Legal status: voluntary 10. Consider discharge next week if patient is in stable condition, safe, and has a safe discharge plan. 11. Substance abuse interventions: cannabis PSYCHOTROPIC MEDICATION TREATMENT INFORMED CONSENT and RECOMMENDATIONS: Review nature of condition, diagnosis, and prognosis. Review nature and purpose of psychotropic medication treatment. Review type of psychotropic medications being ordered. Review risk and benefits of psychotropic medication treatment. Review probable length of time patient will need to take medications. Review risk and benefits of not undergoing psychotropic medication treatment. Review alternative treatments to psychotropic medications. Review psychotropic medications contraindications, drug-drug interactions, side effects, and importance of reporting any side effects to a psychiatric provider or nurse during inpatient hospitalization, and upon discharge to patients psychiatric outpatient provider, primary care provider, or other health child care worker. Review importance of asking a nurse, psychiatric provider, or primary care provider any questions or problems concerning the psychotropic medications. Verify patient understands the information that has been provided, and understands, accepts, and agrees to psychotropic medications. Review patients safety plan and importance of patient to report to staff while hospitalized if patient is ever a danger to self/others, or unable to care for self, and upon discharge, the importance for patient to contact [facility] or [facility], or go to the nearest emergency room, if patient is ever a danger to self/others, or unable to care for self. Recommend that upon discharge patient establish medication management treatment with a psychiatric provider, establishes routine therapy appointments, and follow-up with primary care provider. Verify patient understands and agrees to these recommendations. 10/02/18 13:22 Subjective: Following up with patient for evaluation of psychosis and safety. Patient reports, "Oh, I am having a great day. Just a wonderful day. Been talking to my , you know we still communicate. Wrote her a poem. We first met when I was 19 years old, we went skiing 45 times that year. Oh, it was just great. 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 Then we went to [place] and spent time on the beach." Patient expresses the following psychiatric symptoms delusions. Patient reports taking medications as prescribed, and describes response to medications as "doing great." Patient does not report undesirable side effects from the medications, and agrees to continue current medications. Patient describes getting 10 hours of sleep, and reports feels rested today. Objective: Vital Signs Temp Pulse Resp BP Pulse Ox 36.6 C 74 15 133/91 H 94 10/02/18 06:00 10/02/18 06:00 10/02/18 06:00 10/02/18 06:00 10/02/18 06:00 NURSING REPORT: Consulted with nursing for update on patients progress in treatment. Nurses report patient is not engaged in treatment, is not attending groups, slept 12 hours, spends majority of the time in his room, expresses the following psychiatric symptoms: delusions, exhibits the following psychiatric symptoms: delusional, nonsensical, illogical, disorganized, tangential; is eating all meals, is agreeable to medications and taking as prescribed with no report of side effects, with no s/s of EPS/akathisia, and denies SI/HI, denies A /V hallucinations, and reports delusions. Patient placed on reverse-room order due to being withdrawn to room, no social interaction. MSE: The patient is a well-nourished male looking stated chronological age. Attire is appropriate and dress is casual. Grooming status is inappropriate and disheveled. Ambulation is independent. Gait is normal and coordinated. Posture is normal and relaxed. Eye contact is appropriate. Motor activity is appropriate with purposeful, organized, coordinated movements; with no involuntary movements. Attitude is cooperative and friendly. Patient appears attentive and relates well to this interviewer. Language production is spontaneous. R/R/V normal. Articulation is clear. Patient reports mood as okay with expansive, inappropriate affect. Patients thought process nonsensical , illogical, disorganized, non-linear, and tangential. Patient does not report suicidal/homicidal thoughts, ideas, or plans. Patient denies auditory, visual hallucinations. Patient reports delusions. Patient does appear to be attending to internal stimuli. Patients attention and concentration are poor. Patient is oriented to person and place. Patient appears to be a poor historian. Patients insight and judgment poor. SUBSTANCE ABUSE BRIEF INTERVENTION: Brief intervention regarding the risks of cannabis abuse is provided to patient with goal to reduce the risk of harm that could result from the continued use of cannabis, with the general aim to investigate the problem, raise awareness of problem, develop a solution with the patient, recommend a specific change or activity, and motivate the patient toward change. Assess substance abuse behavior and give supportive advice about harm reduction, recommend a reduction in hazardous/at-risk consumption patterns, and facilitate referrals for additional specialized treatment with direct care supervisor. Intermediate goal is for the patient to quit/decrease frequency of use/attend a NA/AA meeting. Intervention focus on intermediate goals to allow for more immediate success in the treatment process to keep the patient motivated. Review following with patient: Cannabis use risks: Short- term use: impaired short-term memory, impaired motor coordination, altered judgement, in high doses paranoia and psychosis. Long-term use addiction, diminished life satisfaction and achievement, symptoms of chronic bronchitis, and increased risk of chronic psychosis disorders if predisposition to such disorders. In withdrawal anger, aggression irritability, anxiety and nervousness, decreased appetite or weight loss, restlessness, and sleep difficulties with strange dreams. OUTPATIENT SUBSTANCE ABUSE TREATMENT: Patient referred to outpatient provider and treatment for continued treatment related to substance abuse. - Time Spent With Patient Time Spent With Patient: 15 minutes, met with patient individually. - Pending Discharge Pending Discharge Within 24 Hours: No Pending Discharge Within 48 Hours: No ICD10 Worksheet Patient Problems: Problems Problem Status Onset Schizoaffective disorder, bipolar type Acute Ebony Acute
[2018-10-02] MEDS: risperiDONE 1 MG TAB PO SCH (19:42)
[2018-10-02] MEDS: MELATONIN 3 MG TAB PO SCH (19:42)
[2018-10-03] MEDS: NICOTINE POLACRILEX 2 MG GUM B PRN ×2 (05:00→09:37)
[2018-10-03] MEDS: NICOTINE 21 MG/24 HR PATCH TD SCH (08:28)
[2018-10-03] MEDS: CIMETIDINE PO SCH ×2 (08:28→20:14)
[2018-10-03] MEDS: ATORVASTATIN CALCIUM 40 MG TAB PO SCH (08:28)
[2018-10-03] MEDS: TOPIRAMATE 100 MG TAB PO SCH ×2 (08:28→20:11)
--- NOTE | 2018-10-03 12:24 | ASMTCMCOM ---
CM Note CM Note Notes: Pt. reports feeling "fine". Pt. stated he slept "great". Pt. reports no issues with his current medications. Pt. stated he is eating fine and is not attending groups. Pt. stated he is not attending groups, but is "writing a poem or two a day for my and then I read them to her". 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 Pt. stated he has three houses, including "a boat, a cabin, and a house". Pt. denied SI, HI, AVH and paranoia. Pt. presents as alert, calm, joking with CC, fair eye contact, and cooperative. Staff report pt. sleeping 1.5 hours and being medication compliant. Date Signed: 10/03/2018 12:23 PM Electronically Signed By:Danielle Ríos
[2018-10-03] MEDS: risperiDONE 1 MG TAB PO SCH (20:10)
[2018-10-03] MEDS: MELATONIN 3 MG TAB PO SCH (20:11)
[2018-10-04] MEDS: NICOTINE POLACRILEX 2 MG GUM B PRN ×6 (00:18→12:47)
[2018-10-04] MEDS: CIMETIDINE PO SCH ×2 (09:24→19:38)
[2018-10-04] MEDS: ATORVASTATIN CALCIUM 40 MG TAB PO SCH (09:24)
[2018-10-04] MEDS: TOPIRAMATE 100 MG TAB PO SCH (09:24)
[2018-10-04] MEDS: NICOTINE 21 MG/24 HR PATCH TD SCH (10:51)
--- NOTE | 2018-10-04 11:31 | ASMTCMCOM ---
CM Note CM Note Notes: Pt. reports feeling "great" adding he has "been awake for a while, wrote a love song for my ". Pt. stated he slept fine, and feels rested. Pt. reports eating well. Pt. reports no issues with his current medications. Pt. stated he is attending groups, adding "[gone] to every one of them". Pt. 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 Pt. stated "probably the last painting I'll do". Pt. the discussed meeting famous people and playing the drums with them. Pt. stated he had an 18 hour concert once. Pt. 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 Pt. denied SI, HI, AVH and paranoia. Pt. presents as alert, disorganized, delusional, good eye contact, polite, and with a mostly pleasant demeanor. Staff report pt. sleeping 8 hours and being medication compliant. Pt. was observed several times throughout the day responding to internal stimuli. Date Signed: 10/04/2018 11:30 AM Electronically Signed By:Danielle Ríos
[2018-10-04] MEDS: DIVALPROEX ER 500 MG TAB PO SCH ×2 (11:35→20:33)
--- NOTE | 2018-10-04 14:22 | ASMTBHDC ---
Notes Note: Notes: CC received a voicemail from Severnio at [facility]. Severino stated they are at their "psyc census" and have to decline pt at this time. Severino's contact information - [phone] Date Signed: 10/04/2018 02:21 PM Electronically Signed By:Danielle Ríos
--- NOTE | 2018-10-04 15:26 | ASMTBHDC ---
Notes Note: Notes: CC spoke with [facility] PASSAR coordinator. [facility] stated pt. will need a PASSAR Level 2 due to being recently hospitalized. [facility] suggested looking for skilled nursing care throughout the [facility]. [facility] stated they will schedule an gauge and weigh machine adjuster to meet with pt while pt is on the unit in the next coming days. [facility] will call CC once a time has been scheduled. Date Signed: 10/04/2018 03:25 PM Electronically Signed By:Danielle Ríos
--- NOTE | 2018-10-04 16:17 | SOAPPROG ---
SOAP Progress Note Assessment/Plan: Assessment: Plan: 09/26/18 14:33 Psychosis: Remains acutely psychotic with manic tone. Will increase Risperdal to 2mg, continue Topamax. Will contact pt's brother for collateral information but don't have his number at this time. 09/27/18 12:14 Psychosis: Remains quite psychotic. Will increase Risperdal to 3mg, monitor. Have brother's phone number now. Will call. 09/28/18 12:06 Psychosis: No change. CCM. Unsure how to accomplish "ideal" d/c plan. Brother is guardian and needs to direct this. 10/02/18 10:45 Psychosis: Some improvement. CCM. Continue d/c planning. 10/04/18 16:18 Psychosis: Minimal change. CCM. Consider retrial of VPA. Subjective: LATE ENTRY FOR 10/03/18 Pt seen, discussed with staff. Remains present in the milieu, though struggles to interact meaningfully due to ongoing level of disorganization. He offers no c/o's, though remains upset about possibly going to a SNF. Compliant with meds. Objective: Vital Signs Temp Pulse Resp BP Pulse Ox 36.7 C 69 16 138/83 H 97 10/04/18 06:00 10/04/18 06:00 10/04/18 06:00 10/04/18 06:00 10/04/18 06:00 MSE: Calm, coop. Affect is bright, elevated. Mood is "great." TP is linear. TC reveals continued prominent delusions, RIS. - Time Spent With Patient Time Spent With Patient: 15" ICD10 Worksheet Patient Problems: Problems Problem Status Onset Schizoaffective disorder, bipolar type Acute Ebony Acute
--- NOTE | 2018-10-04 16:29 | SOAPPROG ---
SOAP Progress Note Assessment/Plan: Assessment: Plan: 09/26/18 14:33 Psychosis: Remains acutely psychotic with manic tone. Will increase Risperdal to 2mg, continue Topamax. Will contact pt's brother for collateral information but don't have his number at this time. 09/27/18 12:14 Psychosis: Remains quite psychotic. Will increase Risperdal to 3mg, monitor. Have brother's phone number now. Will call. 09/28/18 12:06 Psychosis: No change. CCM. Unsure how to accomplish "ideal" d/c plan. Brother is guardian and needs to direct this. 10/02/18 10:45 Psychosis: Some improvement. CCM. Continue d/c planning. 10/04/18 16:18 Psychosis: Minimal change. CCM. Consider retrial of VPA. 10/04/18 16:29 Psychosis: Remains disorganized with residual manic sx's. Will retry VPA, starting at 1000mg BID. Subjective: Pt seen, discussed with staff. Reports feeling "great" per usual. He is sitting in day room soaking wet, just out of the shower. RN reports pt was standing in his room nude, not wanting to get dressed earlier. He did comply with her request eventually. He tells me today, "I need to get home to my and son." When I ask about his son he states he is [place]un[place]. He then talks about having "millions and millions of dollars" and building a mansion to live in. I discussed his ongoing disorganization and he is taken aback by this stating, "I am fine. There is nothing wrong with my organization." I discussed the possible use of VPA again and this time he is agreeable. I reviewed the risks, benefits and alternatives of this and he agrees to proceed. He remembers taking it before. "I think it really helps me." Objective: Vital Signs Temp Pulse Resp BP Pulse Ox 36.7 C 69 16 138/83 H 97 10/04/18 06:00 10/04/18 06:00 10/04/18 06:00 10/04/18 06:00 10/04/18 06:00 - Time Spent With Patient Time Spent With Patient: 25" ICD10 Worksheet Patient Problems: Problems Problem Status Onset Schizoaffective disorder, bipolar type Acute Ebony Acute
[2018-10-04] MEDS: risperiDONE 1 MG TAB PO SCH (20:33)
[2018-10-04] MEDS: MELATONIN 3 MG TAB PO SCH (20:33)
[2018-10-05] MEDS: NICOTINE POLACRILEX 2 MG GUM B PRN ×4 (01:05→13:06)
[2018-10-05] MEDS: DIVALPROEX ER 500 MG TAB PO SCH ×2 (08:36→20:21)
[2018-10-05] MEDS: CIMETIDINE PO SCH ×2 (08:37→20:22)
[2018-10-05] MEDS: NICOTINE 21 MG/24 HR PATCH TD SCH (08:37)
[2018-10-05] MEDS: ATORVASTATIN CALCIUM 40 MG TAB PO SCH (08:37)
--- NOTE | 2018-10-05 14:50 | SOAPPROG ---
SOAP Progress Note Assessment/Plan: Assessment: Plan: 09/26/18 14:33 Psychosis: Remains acutely psychotic with manic tone. Will increase Risperdal to 2mg, continue Topamax. Will contact pt's brother for collateral information but don't have his number at this time. 09/27/18 12:14 Psychosis: Remains quite psychotic. Will increase Risperdal to 3mg, monitor. Have brother's phone number now. Will call. 09/28/18 12:06 Psychosis: No change. CCM. Unsure how to accomplish "ideal" d/c plan. Brother is guardian and needs to direct this. 10/02/18 10:45 Psychosis: Some improvement. CCM. Continue d/c planning. 10/04/18 16:18 Psychosis: Minimal change. CCM. Consider retrial of VPA. 10/04/18 16:29 Psychosis: Remains disorganized with residual manic sx's. Will retry VPA, starting at 1000mg BID. 10/05/18 14:50 Psychosis: No change in overall status. CCM. Subjective: Pt seen, discussed with staff. Reports feeling "fine." Remains intermittently confused, disorganized. Struggles to perform ADL's without cuing or instruction. Denies need for help, insisting he can d/c to home. His thinking remains almost completely influenced by delusions. Compliant with meds. No SE' s noted from VPA. Objective: Vital Signs Temp Pulse Resp BP Pulse Ox 37.3 C 78 16 129/86 H 95 10/05/18 06:00 10/05/18 06:00 10/05/18 06:00 10/05/18 06:00 10/05/18 06:00 - Time Spent With Patient Time Spent With Patient: 15" ICD10 Worksheet Patient Problems: Problems Problem Status Onset Schizoaffective disorder, bipolar type Acute Ebony Acute
[2018-10-05] MEDS: risperiDONE 1 MG TAB PO SCH (20:21)
[2018-10-05] MEDS: MELATONIN 3 MG TAB PO SCH (20:21)
[2018-10-06] MEDS: NICOTINE POLACRILEX 2 MG GUM B PRN ×4 (03:48→17:27)
[2018-10-06] MEDS: NICOTINE 21 MG/24 HR PATCH TD SCH (07:52)
[2018-10-06] MEDS: ATORVASTATIN CALCIUM 40 MG TAB PO SCH (07:52)
[2018-10-06] MEDS: DIVALPROEX ER 500 MG TAB PO SCH ×2 (07:52→17:36)
[2018-10-06] MEDS: CIMETIDINE PO SCH ×2 (07:56→18:12)
--- NOTE | 2018-10-06 14:22 | ASMTCMCOM ---
CM Note CM Note Notes: Pt. reports feeling "real good". Pt. reports he slept "great. Like a log". Pt. stated he wrote three poems this morning. Pt. stated "time doesn't exist for me". Pt. reports no issues with his current medications, adding "MD just changed them completely". Pt. stated "I'm sleeping fine". Pt. stated he is attending groups, adding he has attended all groups. Pt. stated :just want to go home" Adding "I miss my ". Pt. 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 Pt. denied SI, HI, AVH and paranoia. Pt. presents as alert, calm, good eye contact, unkempt, cooperative and with a mostly friendly demeanor. Staff report pt. sleeping 4.5 hours and being medication compliant. Pt. did have a visitor who completed pt's PASSAR level 2 interview. Pt's brother Logan's contact number is [phone] Date Signed: 10/06/2018 02:21 PM Electronically Signed By:Danielle Ríos
--- NOTE | 2018-10-06 17:09 | SOAPPROG ---
SOAP Progress Note Assessment/Plan: Assessment: Per Dr. Diaz note: 09/30/18 12:36 per staff, slept 4.5h. staff reports pt sleeps naked. did take shower yesterday , and put on clean clothes. smells better now. continues to talk to unseen others and respond to internal stimuli in room. pleasant and cooperative. not attending groups. taking meds. on brief eval, pt lying in bed, was nude but stated "wait, let me pull the blankets up". denied any med s/e. states he didn't even notice (clinically) the increase in Risperdal except that he took 2 pills. Agreed to further increase to 3mg as was planned target dose prior to w/e. mse: pleasant, cooperative, appropriate e/c, nml speech rate/vol, affect full, mood "good" and hoping to go home soon. +grandiose delusional, denied any AH/VH but staff still note +RIS in room alone. denied any SI or thoughts to harm othes. i/j poor/poor. PLAN: -incr Risperdal to 3mg qhs and monitor for any s/e. this was target dose for last week. -still not sleeping well. altho may not be helpful, will try sched Melatonin 3mg at hs. still not sleeping. could also try Benadryl which would also offset any EPS but also need to consider anticholinergic effects in 67yo -vol. would consider M-1 if pt does insist for d/c b/c continues gravely disabled with poor insight, and still with psychosis. More recent notes from Dr. Baer: 10/02/18 10:45 Psychosis: Some improvement. CCM. Continue d/c planning. 10/04/18 16:18 Psychosis: Minimal change. CCM. Consider retrial of VPA. 10/04/18 16:29 Psychosis: Remains disorganized with residual manic sx's. Will retry VPA, starting at 1000mg BID. 10/05/18 14:50 Psychosis: No change in overall status. CCM. Subjective: Pt seen, discussed with staff. Reports feeling "fine." Remains intermittently confused, disorganized. Struggles to perform ADL's without cuing or instruction. Denies need for help, insisting he can d/c to home. His thinking remains almost completely influenced by delusions. Compliant with meds. No SE' s noted from VPA. Plan: 10/06/18 17:08 1. Patient remains confused and disorganized. He has hard time responding to simple questions. For instance, patient remained at nurse's station for several minutes after telling MD that an RN was helping him. MD later discovered patient had not spoken to RN, and was waiting for tea. 2. Patient still has persistent delusions about ("Renata") and 2 children he doesn't actually have. 3. Patient's sleeping has improved. He slept 4.5 hrs last night. 4. VPA level tomorrow. Subjective: Patient presents pleasant, but very disorganized and confused. He is disheveled and unkempt with long straggly, unwashed hair. Patient has not showered in several days and is malodorous. He denies AH/VH, but appears to staff to be responding to IS when observed in his room. He has persistent delusions about a and 2 kids he doesn't actually have. He claims daughter is soto in "[email or web address] Objective: Vital Signs Temp Pulse Resp BP Pulse Ox 36.7 C 78 16 152/88 H 96 10/06/18 06:00 10/06/18 06:00 10/06/18 06:00 10/06/18 06:00 10/06/18 06:00 MSE: Affect: Pleasant Mood: "OK" TP: Illogical, disorganized TC: Denies paranoid delusions, no SI/HI Perception: Denies AH/VH, but appears to have +RIS Insight/Judgment: Impaired - Time Spent With Patient Time Spent With Patient: 15" - Pending Discharge Pending Discharge Within 24 Hours: No Pending Discharge Within 48 Hours: No ICD10 Worksheet Patient Problems: Problems Problem Status Onset Schizoaffective disorder, bipolar type Acute Ebony Acute
[2018-10-06] MEDS: risperiDONE 1 MG TAB PO SCH (17:36)
[2018-10-06] MEDS: MELATONIN 3 MG TAB PO SCH (17:37)
[2018-10-07] MEDS: NICOTINE POLACRILEX 2 MG GUM B PRN ×4 (01:16→09:20)
[2018-10-07] MEDS: ATORVASTATIN CALCIUM 40 MG TAB PO SCH (08:21)
[2018-10-07] MEDS: DIVALPROEX ER 500 MG TAB PO SCH ×2 (08:21→21:53)
[2018-10-07] MEDS: CIMETIDINE PO SCH ×2 (08:22→22:00)
[2018-10-07] MEDS: NICOTINE 21 MG/24 HR PATCH TD SCH (08:22)
--- NOTE | 2018-10-07 15:13 | ASMTCMCOM ---
CM Note CM Note Notes: CC met with pt. while he was eating breakfast. Pt. reports feeling "very good". Pt. stated he "woke up at midnight and wrote three songs". Pt. shared how he scribbles and has a hard time reading what he wrote, adding he has to spend hours to figure out what he actually wrote. Pt. stated "at first I'd see a meteorite and would write a song". Pt. stated he slept "like a rock", adding "feel like been sleeping the whole time" referring to the whole time he has been in the hospital. Pt. reports no issues with his medications, adding "just don't notice it [medications]". Pt. stated he has had "12 phlebotomies in six weeks". Pt. stated he "weighted too much, almost 400lbs". Pt. stated this happened in 12/08/15. Pt. denied SI, HI, AVH and paranoia. Pt. presents as alert, smiling, disorganized, fair eye contact, cooperative and with a mostly friendly demeanor. Date Signed: 10/07/2018 03:12 PM Electronically Signed By:Danielle Ríos
--- NOTE | 2018-10-07 17:23 | SOAPPROG ---
SOAP Progress Note Assessment/Plan: Assessment: Per Dr. Diaz note: 09/30/18 12:36 per staff, slept 4.5h. staff reports pt sleeps naked. did take shower yesterday , and put on clean clothes. smells better now. continues to talk to unseen others and respond to internal stimuli in room. pleasant and cooperative. not attending groups. taking meds. on brief eval, pt lying in bed, was nude but stated "wait, let me pull the blankets up". denied any med s/e. states he didn't even notice (clinically) the increase in Risperdal except that he took 2 pills. Agreed to further increase to 3mg as was planned target dose prior to w/e. mse: pleasant, cooperative, appropriate e/c, nml speech rate/vol, affect full, mood "good" and hoping to go home soon. +grandiose delusional, denied any AH/VH but staff still note +RIS in room alone. denied any SI or thoughts to harm othes. i/j poor/poor. PLAN: -incr Risperdal to 3mg qhs and monitor for any s/e. this was target dose for last week. -still not sleeping well. altho may not be helpful, will try sched Melatonin 3mg at hs. still not sleeping. could also try Benadryl which would also offset any EPS but also need to consider anticholinergic effects in 67yo -vol. would consider M-1 if pt does insist for d/c b/c continues gravely disabled with poor insight, and still with psychosis. More recent notes from Dr. Baer: 10/02/18 10:45 Psychosis: Some improvement. CCM. Continue d/c planning. 10/04/18 16:18 Psychosis: Minimal change. CCM. Consider retrial of VPA. 10/04/18 16:29 Psychosis: Remains disorganized with residual manic sx's. Will retry VPA, starting at 1000mg BID. 10/05/18 14:50 Psychosis: No change in overall status. CCM. Subjective: Pt seen, discussed with staff. Reports feeling "fine." Remains intermittently confused, disorganized. Struggles to perform ADL's without cuing or instruction. Denies need for help, insisting he can d/c to home. His thinking remains almost completely influenced by delusions. Compliant with meds. No SE' s noted from VPA. Plan: 10/06/18 17:08 1. Patient remains confused and disorganized. He has hard time responding to simple questions. For instance, patient remained at nurse's station for several minutes after telling MD that an RN was helping him. MD later discovered patient had not spoken to RN, and was waiting for tea. 2. Patient still has persistent delusions about ("Renata") and 2 children he doesn't actually have. 3. Patient's sleeping has improved. He slept 4.5 hrs last night. 4. VPA level tomorrow. 10/07/18 17:19 1. VPA level this AM was 82.7. 2. Patient remains same, no change. 3. Sleep increased to 5.5 hrs last night. 4. CCM Subjective: Patient talking to himself whenever he is in his room alone. Patient remains delusional, but talking about different things today. He is focused on writing songs today. Patient's room is completely disheveled and malodorous. He is keeping leftover food in his room. Staff had to clean it today. Sleep has been increasing over past few days, he slept 5.5 hrs last night. Objective: Vital Signs Temp Pulse Resp BP Pulse Ox 36.6 C 76 16 124/74 H 96 10/07/18 06:00 10/07/18 06:00 10/07/18 06:00 10/07/18 06:00 10/07/18 06:00 MSE: Affect: Euthymic Mood: "OK" TP: Disorganized, confused, illogical TC: Denies any SI/HI Perception: Patient observed responding to IS, though denies AH/VH when asked directly Insight/Judgment: Impaired - Time Spent With Patient Time Spent With Patient: 15" - Pending Discharge Pending Discharge Within 24 Hours: No Pending Discharge Within 48 Hours: No ICD10 Worksheet Patient Problems: Problems Problem Status Onset Schizoaffective disorder, bipolar type Acute Ebony Acute
[2018-10-07] MEDS: MELATONIN 3 MG TAB PO SCH (21:53)
[2018-10-07] MEDS: risperiDONE 1 MG TAB PO SCH (21:54)
[2018-10-07] MEDS ORDERED: NICOTINE POLACRILEX 2 MG GUM B ONE (23:52)
[2018-10-08] MEDS: NICOTINE POLACRILEX 2 MG GUM B PRN ×3 (01:30→20:29)
[2018-10-08] MEDS: NICOTINE 21 MG/24 HR PATCH TD SCH (08:33)
[2018-10-08] MEDS: ATORVASTATIN CALCIUM 40 MG TAB PO SCH (08:33)
[2018-10-08] MEDS: DIVALPROEX ER 500 MG TAB PO SCH ×2 (08:34→20:17)
[2018-10-08] MEDS: CIMETIDINE PO SCH ×2 (08:34→20:21)
--- NOTE | 2018-10-08 14:35 | SOAPPROG ---
SOAP Progress Note Assessment/Plan: Assessment: Plan: 09/26/18 14:33 Psychosis: Remains acutely psychotic with manic tone. Will increase Risperdal to 2mg, continue Topamax. Will contact pt's brother for collateral information but don't have his number at this time. 09/27/18 12:14 Psychosis: Remains quite psychotic. Will increase Risperdal to 3mg, monitor. Have brother's phone number now. Will call. 09/28/18 12:06 Psychosis: No change. CCM. Unsure how to accomplish "ideal" d/c plan. Brother is guardian and needs to direct this. 10/02/18 10:45 Psychosis: Some improvement. CCM. Continue d/c planning. 10/04/18 16:18 Psychosis: Minimal change. CCM. Consider retrial of VPA. 10/04/18 16:29 Psychosis: Remains disorganized with residual manic sx's. Will retry VPA, starting at 1000mg BID. 10/05/18 14:50 Psychosis: No change in overall status. CCM. 10/08/18 14:34 Psychosis: Appears significantly better over weekend. CCM. May begin demential w/u to assist with placement. Subjective: Pt seen, discussed with staff, chart reviewed. Somewhat quiet today. States he doesn't have time to talk because there is a group and he has to talk to his afterward. Noted to be calm, participating appropriately in group. Much less talkative and intrusive. Compliant with meds. Tolerating VPA well. Objective: Vital Signs Temp Pulse Resp BP Pulse Ox 36.4 C 72 16 109/58 L 95 10/08/18 06:00 10/08/18 06:00 10/08/18 06:00 10/08/18 06:00 10/08/18 06:00 MSE: Marginally groomed, coop. Affect is euthymic, stable, approp. Mood is "good." TP is disorganized. TC reveals continued familiar delusional systems. - Time Spent With Patient Time Spent With Patient: 15" ICD10 Worksheet Patient Problems: Problems Problem Status Onset Schizoaffective disorder, bipolar type Acute Ebony Acute
--- NOTE | 2018-10-08 14:40 | ASMTBHDC ---
Notes Note: Notes: Pt's clinicals and PASRR sent to [facility] in [place] Date Signed: 10/08/2018 02:39 PM Electronically Signed By:Danielle Ríos
[2018-10-08] MEDS: risperiDONE 1 MG TAB PO SCH (20:17)
[2018-10-08] MEDS: MELATONIN 3 MG TAB PO SCH (20:17)
[2018-10-09] MEDS: NICOTINE POLACRILEX 2 MG GUM B PRN ×2 (01:53→13:50)
[2018-10-09] MEDS: DIVALPROEX ER 500 MG TAB PO SCH ×2 (08:21→19:07)
[2018-10-09] MEDS: ATORVASTATIN CALCIUM 40 MG TAB PO SCH (08:21)
[2018-10-09] MEDS: FAMOTIDINE 20 MG TAB PO SCH ×2 (08:22→19:08)
[2018-10-09] MEDS: NICOTINE 21 MG/24 HR PATCH TD SCH (08:22)
--- NOTE | 2018-10-09 15:11 | SOAPPROG ---
SOAP Progress Note Assessment/Plan: Assessment: Plan: 09/26/18 14:33 Psychosis: Remains acutely psychotic with manic tone. Will increase Risperdal to 2mg, continue Topamax. Will contact pt's brother for collateral information but don't have his number at this time. 09/27/18 12:14 Psychosis: Remains quite psychotic. Will increase Risperdal to 3mg, monitor. Have brother's phone number now. Will call. 09/28/18 12:06 Psychosis: No change. CCM. Unsure how to accomplish "ideal" d/c plan. Brother is guardian and needs to direct this. 10/02/18 10:45 Psychosis: Some improvement. CCM. Continue d/c planning. 10/04/18 16:18 Psychosis: Minimal change. CCM. Consider retrial of VPA. 10/04/18 16:29 Psychosis: Remains disorganized with residual manic sx's. Will retry VPA, starting at 1000mg BID. 10/05/18 14:50 Psychosis: No change in overall status. CCM. 10/08/18 14:34 Psychosis: Appears significantly better over weekend. CCM. May begin demential w/u to assist with placement. 10/09/18 15:10 Psychosis: Improvement with VPA, though remains gravely disabled, likely demented. CCM. Subjective: Pt seen, discussed with staff. Continues to cooperate with morning reverse room protocol, but spends the majority of his time in his room after that. No behavioral issues. Still unhappy, but agreeable to SNF placement. Compliant with meds. Grooming remains marginal, sitting in day room with feces stained blankets. Objective: Vital Signs Temp Pulse Resp BP Pulse Ox 36.4 C 72 16 109/58 L 95 10/08/18 06:00 10/08/18 06:00 10/08/18 06:00 10/08/18 06:00 10/08/18 06:00 MSE: Calm, coop. Affect is somewhat morton, but adequately modulated. Mood is "good." TP linear for brief periods and then disorganized. TC reveals continued prominent delusions. - Time Spent With Patient Time Spent With Patient: 15" ICD10 Worksheet Patient Problems: Problems Problem Status Onset Schizoaffective disorder, bipolar type Acute Ebony Acute
[2018-10-09] MEDS: MELATONIN 3 MG TAB PO SCH (19:08)
[2018-10-09] MEDS: risperiDONE 1 MG TAB PO SCH (19:08)
--- NOTE | 2018-10-10 07:21 | ASMTCMCOM ---
CM Note CM Note Notes: CC out-reached BOC (Logan) at [phone]; to request family meeting for client set tomorrow, no answer left detailed VM with all necessary return contact information.* Date Signed: 10/10/2018 07:21 AM Electronically Signed By:Joss Jones
[2018-10-10] MEDS: DIVALPROEX ER 500 MG TAB PO SCH ×2 (09:50→21:00)
[2018-10-10] MEDS: FAMOTIDINE 20 MG TAB PO SCH ×2 (09:50→21:00)
[2018-10-10] MEDS: ATORVASTATIN CALCIUM 40 MG TAB PO SCH (09:50)
[2018-10-10] MEDS: NICOTINE 21 MG/24 HR PATCH TD SCH (09:51)
[2018-10-10] MEDS: NICOTINE POLACRILEX 2 MG GUM B PRN (14:38)
--- NOTE | 2018-10-10 14:49 | ASMTCMCOM ---
CM Note CM Note Notes: The patient is cheerful and friendly on the unit. He reported zero concerns with the results from his EKG earlier in the week. The patient is engaging in groups, meals, and pro social behavior. He looks forward to returning to the community. According to [facility], the patient continues to have poor ADLs. His linens and clothing need consistent washing and changing. Date Signed: 10/10/2018 02:48 PM Electronically Signed By:Anne Gates
--- NOTE | 2018-10-10 16:39 | SOAPPROG ---
SOAP Progress Note Assessment/Plan: Assessment: Plan: 09/26/18 14:33 Psychosis: Remains acutely psychotic with manic tone. Will increase Risperdal to 2mg, continue Topamax. Will contact pt's brother for collateral information but don't have his number at this time. 09/27/18 12:14 Psychosis: Remains quite psychotic. Will increase Risperdal to 3mg, monitor. Have brother's phone number now. Will call. 09/28/18 12:06 Psychosis: No change. CCM. Unsure how to accomplish "ideal" d/c plan. Brother is guardian and needs to direct this. 10/02/18 10:45 Psychosis: Some improvement. CCM. Continue d/c planning. 10/04/18 16:18 Psychosis: Minimal change. CCM. Consider retrial of VPA. 10/04/18 16:29 Psychosis: Remains disorganized with residual manic sx's. Will retry VPA, starting at 1000mg BID. 10/05/18 14:50 Psychosis: No change in overall status. CCM. 10/08/18 14:34 Psychosis: Appears significantly better over weekend. CCM. May begin demential w/u to assist with placement. 10/09/18 15:10 Psychosis: Improvement with VPA, though remains gravely disabled, likely demented. CCM. 10/10/18 16:39 Psychosis: No change. CCM. Subjective: Pt seen, discussed with staff. Reports feeling "great." Continues to comply with meds and behavioral plan. Grooming and ADL's remain very poor. Agreeable to family meeting tomorrow with brother available by phone. Objective: Vital Signs Temp Pulse Resp BP Pulse Ox 36.8 C 76 16 153/69 H 96 10/10/18 09:45 10/10/18 09:45 10/10/18 09:45 10/10/18 09:45 10/10/18 09:45 MSE: Calm, coop. Affect is somewhat blunted, stable. Mood is "great." TP is linear for brief periods, then tangential. TC reveals grandiose, erotomanic, and paranoid delusions, IOR's, AH's. - Time Spent With Patient Time Spent With Patient: 15" ICD10 Worksheet Patient Problems: Problems Problem Status Onset Schizoaffective disorder, bipolar type Acute Ebony Acute
[2018-10-10] MEDS: MELATONIN 3 MG TAB PO SCH (21:00)
[2018-10-10] MEDS: risperiDONE 1 MG TAB PO SCH (21:00)
[2018-10-11] MEDS: NICOTINE POLACRILEX 2 MG GUM B PRN ×3 (05:40→13:51)
[2018-10-11] MEDS: NICOTINE 21 MG/24 HR PATCH TD SCH (08:44)
[2018-10-11] MEDS: DIVALPROEX ER 500 MG TAB PO SCH ×2 (08:45→20:09)
[2018-10-11] MEDS: ATORVASTATIN CALCIUM 40 MG TAB PO SCH (08:45)
[2018-10-11] MEDS: FAMOTIDINE 20 MG TAB PO SCH ×2 (08:45→20:09)
--- NOTE | 2018-10-11 14:05 | ASMTCMCOM ---
CM Note CM Note Notes: This CC submitted new referrals to other [facility], as well as faxed [facility] in [place] for poss. placement. CC should waiting for response. Date Signed: 10/11/2018 02:05 PM Electronically Signed By:Joss Jones
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
[2018-10-11] MEDS: risperiDONE 1 MG TAB PO SCH (20:09)
[2018-10-11] MEDS: MELATONIN 3 MG TAB PO SCH (20:09)
[2018-10-12] MEDS: NICOTINE POLACRILEX 2 MG GUM B PRN ×2 (06:44→13:08)
[2018-10-12] MEDS: DIVALPROEX ER 500 MG TAB PO SCH ×2 (08:45→20:18)
[2018-10-12] MEDS: ATORVASTATIN CALCIUM 40 MG TAB PO SCH (08:45)
[2018-10-12] MEDS: FAMOTIDINE 20 MG TAB PO SCH ×2 (08:46→20:18)
[2018-10-12] MEDS: NICOTINE 21 MG/24 HR PATCH TD SCH (08:46)
--- NOTE | 2018-10-12 11:43 | ASMTCMCOM ---
CM Note CM Note Notes: CC checked in with ct. Ct. was pleasant and cooperative. Ct. was cheerful. He reported experiencing nightmares. Content of conversation appeared delusional for the most part. He is more positive and agreeable to a detention placement. Date Signed: 10/12/2018 11:43 AM Electronically Signed By:Karen Streeter
--- NOTE | 2018-10-12 16:14 | SOAPPROG ---
SOAP Progress Note Assessment/Plan: Assessment: Plan: 09/26/18 14:33 Psychosis: Remains acutely psychotic with manic tone. Will increase Risperdal to 2mg, continue Topamax. Will contact pt's brother for collateral information but don't have his number at this time. 09/27/18 12:14 Psychosis: Remains quite psychotic. Will increase Risperdal to 3mg, monitor. Have brother's phone number now. Will call. 09/28/18 12:06 Psychosis: No change. CCM. Unsure how to accomplish "ideal" d/c plan. Brother is guardian and needs to direct this. 10/02/18 10:45 Psychosis: Some improvement. CCM. Continue d/c planning. 10/04/18 16:18 Psychosis: Minimal change. CCM. Consider retrial of VPA. 10/04/18 16:29 Psychosis: Remains disorganized with residual manic sx's. Will retry VPA, starting at 1000mg BID. 10/05/18 14:50 Psychosis: No change in overall status. CCM. 10/08/18 14:34 Psychosis: Appears significantly better over weekend. CCM. May begin demential w/u to assist with placement. 10/09/18 15:10 Psychosis: Improvement with VPA, though remains gravely disabled, likely demented. CCM. 10/10/18 16:39 Psychosis: No change. CCM. 10/11/18 16:00 Psychosis: Pt remains delusional. Remains gravely disabled and lacking decisional capacity due to chronic psychosis and dementia. Will CCM, continue d /c planning. 10/12/18 16:13 Psychosis: No change. Generally calm. Remains gravely disabled and in need of supportive environment at d/c. Subjective: Pt seen, discussed with staff, interviewed in Treatment Team meeting. He is upbeat and less irritable today. Compliant with meds. Offers no c/o's. Grooming remains very poor and he remains incontinent of urine. Objective: Vital Signs Temp Pulse Resp BP Pulse Ox 36.7 C 70 16 132/71 H 96 10/12/18 06:00 10/12/18 06:00 10/12/18 06:00 10/12/18 06:00 10/12/18 06:00 - Time Spent With Patient Time Spent With Patient: 25" ICD10 Worksheet Patient Problems: Problems Problem Status Onset Schizoaffective disorder, bipolar type Acute Ebony Acute
[2018-10-12] MEDS: risperiDONE 1 MG TAB PO SCH (20:18)
[2018-10-12] MEDS: MELATONIN 3 MG TAB PO SCH (20:18)
[2018-10-13] MEDS: NICOTINE POLACRILEX 2 MG GUM B PRN ×2 (05:28→10:56)
[2018-10-13] MEDS: FAMOTIDINE 20 MG TAB PO SCH ×2 (07:37→20:31)
[2018-10-13] MEDS: DIVALPROEX ER 500 MG TAB PO SCH ×2 (07:37→20:31)
[2018-10-13] MEDS: ATORVASTATIN CALCIUM 40 MG TAB PO SCH (07:37)
[2018-10-13] MEDS: NICOTINE 21 MG/24 HR PATCH TD SCH (08:48)
--- NOTE | 2018-10-13 13:35 | ASMTCMCOM ---
CM Note CM Note Notes: Pt. stated he has only "been depressed for 20 minutes", adding he has never felt "chronically depressed". Pt. stated "hard being here" adding he misses his . Pt. 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 Pt. stated he has been making art and then giving it away and this has caused the pt to feel closer to his peer pts. Pt. stated "stress can inspire creativity". Pt. reports waking up three times last night and writing eight poems. Pt. denied SI, HI, AVH and paranoia. Pt. stated "I never had fear of anything". Pt. presents as alert, calm, friendly, good eye contact, disorganized, and cooperative. Staff report pt. sleeping 5.5 hours and being medication compliant. Date Signed: 10/13/2018 01:35 PM Electronically Signed By:Danielle Ríos
--- NOTE | 2018-10-13 16:16 | SOAPPROG ---
SOAP Progress Note Assessment/Plan: Assessment: Per Dr. Baer's most recent note: 10/08/18 14:34 Psychosis: Appears significantly better over weekend. [facility]. May begin demential w/u to assist with placement. 10/09/18 15:10 Psychosis: Improvement with VPA, though remains gravely disabled, likely demented. [facility]. 10/10/18 16:39 Psychosis: No change. [facility]. 10/11/18 16:00 Psychosis: Pt remains delusional. Remains gravely disabled and lacking decisional capacity due to chronic psychosis and dementia. Will [facility], continue d /c planning. 10/12/18 16:13 Psychosis: No change. Generally calm. Remains gravely disabled and in need of supportive environment at d/c. Subjective: Pt seen, discussed with staff, interviewed in Treatment Team meeting. He is upbeat and less irritable today. Compliant with meds. Offers no c/o's. Grooming remains very poor and he remains incontinent of urine. PLAN: 10/13/18 16:12 1. Patient is on reverse room program. He spends most of his time sitting in chair watching TV. He occasionally attends group therapy. 2. Patient asked RN for toiletries and towels, but does not appear to have bathed or cleaned himself in many days. 3. Patient's sleep has improved since last weekend. He slept 5.5 hrs last night and is eating 100% of meals. 4. In addition to obvious psychotic sxs, particularly fixed delusions, patient seems to have suffered significant cognitive decline since his last admission. Dr. Baer has ordered dementia w/u prior to placement. 5. No med changes. Subjective: Patient is sitting in front of TV with volume very loud. Peer asks patient to turn down volume, but patient doesn't respond. When MD introduces himself, patient perks up and is more pleasant and cheerful. He smiles and engages in simple conversation. However, patient continues to talk about his Renata as he has done many times during this admission. There is no records of patient having a named Renata. Objective: Vital Signs Temp Pulse Resp BP Pulse Ox 36.6 C 65 14 120/81 H 95 10/13/18 06:00 10/13/18 06:00 10/13/18 06:00 10/13/18 06:00 10/13/18 06:00 MSE: Affect: Flat, but brighter and cheerful at times when engaged in conversation, pleasant Mood: "Good" TP: Tangential, disorganized TC: Denies SI/HI, fixed delusions ( named Renata that doesn't exist) Insight/Judgment: Impaired - Time Spent With Patient Time Spent With Patient: 15" - Pending Discharge Pending Discharge Within 24 Hours: No Pending Discharge Within 48 Hours: No ICD10 Worksheet Patient Problems: Problems Problem Status Onset Schizoaffective disorder, bipolar type Acute Ebony Acute
[2018-10-13] MEDS: MELATONIN 3 MG TAB PO SCH (20:31)
[2018-10-13] MEDS: risperiDONE 1 MG TAB PO SCH (20:32)
[2018-10-14] MEDS: DIVALPROEX ER 500 MG TAB PO SCH ×2 (08:55→20:02)
[2018-10-14] MEDS: ATORVASTATIN CALCIUM 40 MG TAB PO SCH (08:55)
[2018-10-14] MEDS: FAMOTIDINE 20 MG TAB PO SCH ×2 (08:55→20:02)
[2018-10-14] MEDS: NICOTINE 21 MG/24 HR PATCH TD SCH (08:55)
[2018-10-14] MEDS: NICOTINE POLACRILEX 2 MG GUM B PRN ×2 (09:01→10:46)
--- NOTE | 2018-10-14 15:58 | SOAPPROG ---
SOAP Progress Note Assessment/Plan: Assessment: Per Dr. Baer's most recent note: 10/08/18 14:34 Psychosis: Appears significantly better over weekend. [facility]. May begin demential w/u to assist with placement. 10/09/18 15:10 Psychosis: Improvement with VPA, though remains gravely disabled, likely demented. [facility]. 10/10/18 16:39 Psychosis: No change. [facility]. 10/11/18 16:00 Psychosis: Pt remains delusional. Remains gravely disabled and lacking decisional capacity due to chronic psychosis and dementia. Will [facility], continue d /c planning. 10/12/18 16:13 Psychosis: No change. Generally calm. Remains gravely disabled and in need of supportive environment at d/c. Subjective: Pt seen, discussed with staff, interviewed in Treatment Team meeting. He is upbeat and less irritable today. Compliant with meds. Offers no c/o's. Grooming remains very poor and he remains incontinent of urine. PLAN: 10/13/18 16:12 1. Patient is on reverse room program. He spends most of his time sitting in chair watching TV. He occasionally attends group therapy. 2. Patient asked RN for toiletries and towels, but does not appear to have bathed or cleaned himself in many days. 3. Patient's sleep has improved since last weekend. He slept 5.5 hrs last night and is eating 100% of meals. 4. In addition to obvious psychotic sxs, particularly fixed delusions, patient seems to have suffered significant cognitive decline since his last admission. Dr. Baer has ordered dementia w/u prior to placement. 5. No med changes. 10/14/18 15:53 1. Patient spends most of the day sitting in same chair in front of TV. 2. Little engagement with groups, milieu activities or treatment. 3. Patient is compliant with medications. 4. Still delusional. 5. Waiting for placement. Can no longer live independently. Subjective: Patient is sitting in same chair he occupied yesterday, wrapped in blanket watching TV. However, patient dose not seem to be paying much attention to what' s on TV. His ex-, Winifred, called to speak to patient, but he said he would talk to her "after I get out of here." Patient is pleasant and talkative when engaged by staff, but becomes withdrawn when there is nothing to stimulate his interest. Patient has persistent delusions about being to woman named "Renata" and having several famous children who compose music and sing. 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 Objective: Vital Signs Temp Pulse Resp BP Pulse Ox 36.6 C 68 14 142/88 H 96 10/14/18 06:00 10/14/18 06:00 10/14/18 06:00 10/14/18 06:00 10/14/18 06:00 MSE: Affect: Pleasant, cooperative Mood: "OK" TP: Disorganized, illogical TC : Denies any SI/HI, delusional Perception: No AH/VH Insight/Judgment: Impaired - Time Spent With Patient Time Spent With Patient: 15" - Pending Discharge Pending Discharge Within 24 Hours: No Pending Discharge Within 48 Hours: No ICD10 Worksheet Patient Problems: Problems Problem Status Onset Schizoaffective disorder, bipolar type Acute Ebony Acute
[2018-10-14] MEDS: risperiDONE 1 MG TAB PO SCH (20:02)
[2018-10-14] MEDS: MELATONIN 3 MG TAB PO SCH (20:02)
[2018-10-15] MEDS ORDERED: NICOTINE POLACRILEX 2 MG GUM B ONE (03:24)
[2018-10-15] MEDS: NICOTINE POLACRILEX 2 MG GUM B PRN ×2 (03:25→13:20)
[2018-10-15] MEDS: DIVALPROEX ER 500 MG TAB PO SCH ×2 (08:44→20:22)
[2018-10-15] MEDS: NICOTINE 21 MG/24 HR PATCH TD SCH (08:44)
[2018-10-15] MEDS: FAMOTIDINE 20 MG TAB PO SCH ×2 (08:44→20:22)
[2018-10-15] MEDS: ATORVASTATIN CALCIUM 40 MG TAB PO SCH (08:44)
--- NOTE | 2018-10-15 14:21 | ASMTCMCOM ---
CM Note CM Note Notes: Pt. reports feeling "real good". Pt. stated he wrote six poems today, adding "I work up a sweat". Pt. stated he wants to go to [place], stating "never been there". Pt. reports sleeping 8-9 hours. Pt. reports no issues while on the unit. Pt. stated "miss smoking, outdoors and real caffinee". Pt. stated he watched funny movie last night. Pt. denied SI, HI, AVH and paranoia. Pt. stated "I don't want to harm anybody, I want to live forever". Pt. presents as alert, friendly, talkative, rambling at times, good eye contact and cooperative. Staff report pt. sleeping 6 hours and being medication compliant. Date Signed: 10/14/2018 01:45 PM Electronically Signed By:Danielle Ríos
--- NOTE | 2018-10-15 14:23 | ASMTCMCOM ---
CM Note CM Note Notes: CC reached out to [facility] at , with the [facility] through [facility] regarding client and providing additional information as well as his PASRR results for the County/State, etc. No answer, left a detailed VM with all necessary return contact information. Additionally, CC sent a referral to [facility]. Waiting to hear back, if not soon then CC will continue to reach out. Date Signed: 10/15/2018 10:58 AM Electronically Signed By:Joss Jones
--- NOTE | 2018-10-15 15:28 | SOAPPROG ---
SOAP Progress Note Assessment/Plan: Assessment: Plan: 09/26/18 14:33 Psychosis: Remains acutely psychotic with manic tone. Will increase Risperdal to 2mg, continue Topamax. Will contact pt's brother for collateral information but don't have his number at this time. 09/27/18 12:14 Psychosis: Remains quite psychotic. Will increase Risperdal to 3mg, monitor. Have brother's phone number now. Will call. 09/28/18 12:06 Psychosis: No change. CCM. Unsure how to accomplish "ideal" d/c plan. Brother is guardian and needs to direct this. 10/02/18 10:45 Psychosis: Some improvement. CCM. Continue d/c planning. 10/04/18 16:18 Psychosis: Minimal change. CCM. Consider retrial of VPA. 10/04/18 16:29 Psychosis: Remains disorganized with residual manic sx's. Will retry VPA, starting at 1000mg BID. 10/05/18 14:50 Psychosis: No change in overall status. CCM. 10/08/18 14:34 Psychosis: Appears significantly better over weekend. [facility]. May begin demential w/u to assist with placement. 10/09/18 15:10 Psychosis: Improvement with VPA, though remains gravely disabled, likely demented. CCM. 10/10/18 16:39 Psychosis: No change. CCM. 10/11/18 16:00 Psychosis: Pt remains delusional. Remains gravely disabled and lacking decisional capacity due to chronic psychosis and dementia. Will [facility], continue d /c planning. 10/12/18 16:13 Psychosis: No change. Generally calm. Remains gravely disabled and in need of supportive environment at d/c. 10/15/18 15:27 Psychosis: Stable. Will [facility], continue d/c planning. Subjective: Pt seen, discussed with staff, chart reviewed. Reports feeling "just fine." No changes noted over the weekend. Continues to struggle with ADL's and reality testing. Clearly unable to care for himself in an independent living situation. Social and friendly with others, compliant with treatments. Objective: Vital Signs Temp Pulse Resp BP Pulse Ox 36.2 C 72 14 124/82 H 97 10/15/18 06:00 10/15/18 06:00 10/15/18 06:00 10/15/18 06:00 10/15/18 06:00 MSE: Calm, coop. Affect is bright, stable, approp. Mood is "great." TP is linear. TC reveals continued prominent delusional systems. - Time Spent With Patient Time Spent With Patient: 15" ICD10 Worksheet Patient Problems: Problems Problem Status Onset Schizoaffective disorder, bipolar type Acute Ebony Acute
[2018-10-15] MEDS: MELATONIN 3 MG TAB PO SCH (20:22)
[2018-10-15] MEDS: risperiDONE 1 MG TAB PO SCH (20:22)
[2018-10-16] MEDS: NICOTINE POLACRILEX 2 MG GUM B PRN ×2 (05:17→14:52)
[2018-10-16] MEDS: FAMOTIDINE 20 MG TAB PO SCH ×2 (08:44→20:44)
[2018-10-16] MEDS: NICOTINE 21 MG/24 HR PATCH TD SCH (08:44)
[2018-10-16] MEDS: DIVALPROEX ER 500 MG TAB PO SCH ×2 (08:44→20:44)
[2018-10-16] MEDS: ATORVASTATIN CALCIUM 40 MG TAB PO SCH (08:44)
--- NOTE | 2018-10-16 11:28 | ASMTCMCOM ---
CM Note CM Note Notes: CC out-reached Emily with [facility] at [phone], to provide her with an update regarding this client's diagnosis, etc. No answer, left a detailed VM with all necessary return contact information as well as new primary diagnosis of Dementia . Date Signed: 10/16/2018 11:28 AM Electronically Signed By:Joss Jones
--- NOTE | 2018-10-16 12:53 | ASMTCMCOM ---
CM Note CM Note Notes: CC receives a call from Emily at [facility], she suggests after initial review, client is denied due to their inability to address his needs. After speaking to Emily more about this case, etc. She noted, that she will reconsider the case and get back to this CC. Date Signed: 10/16/2018 12:52 PM Electronically Signed By:Joss Jones
[2018-10-16] MEDS: risperiDONE 1 MG TAB PO SCH (20:44)
[2018-10-16] MEDS: MELATONIN 3 MG TAB PO SCH (20:44)
[2018-10-17] MEDS: NICOTINE POLACRILEX 2 MG GUM B PRN ×2 (06:40→16:17)
[2018-10-17] MEDS: ATORVASTATIN CALCIUM 40 MG TAB PO SCH (08:53)
[2018-10-17] MEDS: NICOTINE 21 MG/24 HR PATCH TD SCH (08:53)
[2018-10-17] MEDS: DIVALPROEX ER 500 MG TAB PO SCH ×2 (08:53→20:01)
[2018-10-17] MEDS: FAMOTIDINE 20 MG TAB PO SCH ×2 (08:53→20:01)
--- NOTE | 2018-10-17 14:56 | SOAPPROG ---
SOAP Progress Note Assessment/Plan: Assessment: Plan: 09/26/18 14:33 Psychosis: Remains acutely psychotic with manic tone. Will increase Risperdal to 2mg, continue Topamax. Will contact pt's brother for collateral information but don't have his number at this time. 09/27/18 12:14 Psychosis: Remains quite psychotic. Will increase Risperdal to 3mg, monitor. Have brother's phone number now. Will call. 09/28/18 12:06 Psychosis: No change. CCM. Unsure how to accomplish "ideal" d/c plan. Brother is guardian and needs to direct this. 10/02/18 10:45 Psychosis: Some improvement. CCM. Continue d/c planning. 10/04/18 16:18 Psychosis: Minimal change. CCM. Consider retrial of VPA. 10/04/18 16:29 Psychosis: Remains disorganized with residual manic sx's. Will retry VPA, starting at 1000mg BID. 10/05/18 14:50 Psychosis: No change in overall status. CCM. 10/08/18 14:34 Psychosis: Appears significantly better over weekend. [facility]CM. May begin demential w/u to assist with placement. 10/09/18 15:10 Psychosis: Improvement with VPA, though remains gravely disabled, likely demented. CCM. 10/10/18 16:39 Psychosis: No change. CCM. 10/11/18 16:00 Psychosis: Pt remains delusional. Remains gravely disabled and lacking decisional capacity due to chronic psychosis and dementia. Will [facility], continue d /c planning. 10/12/18 16:13 Psychosis: No change. Generally calm. Remains gravely disabled and in need of supportive environment at d/c. 10/15/18 15:27 Psychosis: Stable. Will [facility], continue d/c planning. 10/17/18 14:56 Psychosis: Stable. CCM. Subjective: LATE ENTRY FOR 10/16/18. Pt seen, discussed with staff. Reports feeling "great" per usual. Remains happily confused. Compliant with behavioral restrictions. Interviewed in Treatment Team meeting. Continues to request d/c to an independent living circumstance. Compliant with meds. Objective: Vital Signs Temp Pulse Resp BP Pulse Ox 36.8 C 71 20 128/72 H 93 10/17/18 06:00 10/17/18 06:00 10/17/18 06:00 10/17/18 06:00 10/17/18 06:00 MSE: Marginally groomed, pleasant and cooperative. Affect is elevated, smiling. Mood is "great." TP linear for brief periods, tangential at others. TC reveals continued though less prominent delusional systems. - Time Spent With Patient Time Spent With Patient: 25" ICD10 Worksheet Patient Problems: Problems Problem Status Onset Schizoaffective disorder, bipolar type Acute Ebony Acute
--- NOTE | 2018-10-17 14:57 | ASMTCMCOM ---
CM Note CM Note Notes: CC out-reached Emily with [facility] at [phone]; no answer left message for return call regarding re-consideration. Date Signed: 10/17/2018 02:56 PM Electronically Signed By:Joss Jones
--- NOTE | 2018-10-17 14:59 | SOAPPROG ---
SOAP Progress Note Assessment/Plan: Assessment: Plan: 09/26/18 14:33 Psychosis: Remains acutely psychotic with manic tone. Will increase Risperdal to 2mg, continue Topamax. Will contact pt's brother for collateral information but don't have his number at this time. 09/27/18 12:14 Psychosis: Remains quite psychotic. Will increase Risperdal to 3mg, monitor. Have brother's phone number now. Will call. 09/28/18 12:06 Psychosis: No change. CCM. Unsure how to accomplish "ideal" d/c plan. Brother is guardian and needs to direct this. 10/02/18 10:45 Psychosis: Some improvement. CCM. Continue d/c planning. 10/04/18 16:18 Psychosis: Minimal change. CCM. Consider retrial of VPA. 10/04/18 16:29 Psychosis: Remains disorganized with residual manic sx's. Will retry VPA, starting at 1000mg BID. 10/05/18 14:50 Psychosis: No change in overall status. CCM. 10/08/18 14:34 Psychosis: Appears significantly better over weekend. CCM. May begin demential w/u to assist with placement. 10/09/18 15:10 Psychosis: Improvement with VPA, though remains gravely disabled, likely demented. CCM. 10/10/18 16:39 Psychosis: No change. CCM. 10/11/18 16:00 Psychosis: Pt remains delusional. Remains gravely disabled and lacking decisional capacity due to chronic psychosis and dementia. Will [facility], continue d /c planning. 10/12/18 16:13 Psychosis: No change. Generally calm. Remains gravely disabled and in need of supportive environment at d/c. 10/15/18 15:27 Psychosis: Stable. Will [facility], continue d/c planning. 10/17/18 14:56 Psychosis: Stable. CCM. 10/17/18 14:58 Psychosis: No change. CCM. Subjective: Pt seen, discussed with staff. Upbeat and pleasant. Offers no c/o's. States he is excited about going to a new place to live. States, "I'm sad my can' t visit." Remains compliant with all therapies. Objective: Vital Signs Temp Pulse Resp BP Pulse Ox 36.8 C 71 20 128/72 H 93 10/17/18 06:00 10/17/18 06:00 10/17/18 06:00 10/17/18 06:00 10/17/18 06:00 MSE: Calm, coop. Affect is elevated, stable. Mood is "great." TP is linear for brief periods, though becomes disorganized easily. TC reveals continued familiar delusional themes. - Time Spent With Patient Time Spent With Patient: 15" ICD10 Worksheet Patient Problems: Problems Problem Status Onset Schizoaffective disorder, bipolar type Acute Ebony Acute
[2018-10-17] MEDS: risperiDONE 1 MG TAB PO SCH (20:01)
[2018-10-17] MEDS: MELATONIN 3 MG TAB PO SCH (20:01)
[2018-10-18] MEDS: DIVALPROEX ER 500 MG TAB PO SCH ×2 (09:33→20:47)
[2018-10-18] MEDS: ATORVASTATIN CALCIUM 40 MG TAB PO SCH (09:33)
[2018-10-18] MEDS: FAMOTIDINE 20 MG TAB PO SCH ×2 (09:33→20:47)
[2018-10-18] MEDS: NICOTINE 21 MG/24 HR PATCH TD SCH (09:34)
[2018-10-18] MEDS: NICOTINE POLACRILEX 2 MG GUM B PRN ×2 (09:34→16:20)
--- NOTE | 2018-10-18 12:53 | ASMTCMCOM ---
CM Note CM Note Notes: CC was able to send off additional referrals with updated information in client's chart. Waiting for responses. Date Signed: 10/18/2018 12:53 PM Electronically Signed By:Joss Jones
--- NOTE | 2018-10-18 17:22 | SOAPPROG ---
SOAP Progress Note Assessment/Plan: Assessment: Plan: 09/26/18 14:33 Psychosis: Remains acutely psychotic with manic tone. Will increase Risperdal to 2mg, continue Topamax. Will contact pt's brother for collateral information but don't have his number at this time. 09/27/18 12:14 Psychosis: Remains quite psychotic. Will increase Risperdal to 3mg, monitor. Have brother's phone number now. Will call. 09/28/18 12:06 Psychosis: No change. CCM. Unsure how to accomplish "ideal" d/c plan. Brother is guardian and needs to direct this. 10/02/18 10:45 Psychosis: Some improvement. CCM. Continue d/c planning. 10/04/18 16:18 Psychosis: Minimal change. CCM. Consider retrial of VPA. 10/04/18 16:29 Psychosis: Remains disorganized with residual manic sx's. Will retry VPA, starting at 1000mg BID. 10/05/18 14:50 Psychosis: No change in overall status. CCM. 10/08/18 14:34 Psychosis: Appears significantly better over weekend. CCM. May begin demential w/u to assist with placement. 10/09/18 15:10 Psychosis: Improvement with VPA, though remains gravely disabled, likely demented. CCM. 10/10/18 16:39 Psychosis: No change. CCM. 10/11/18 16:00 Psychosis: Pt remains delusional. Remains gravely disabled and lacking decisional capacity due to chronic psychosis and dementia. Will [facility], continue d /c planning. 10/12/18 16:13 Psychosis: No change. Generally calm. Remains gravely disabled and in need of supportive environment at d/c. 10/15/18 15:27 Psychosis: Stable. Will [facility], continue d/c planning. 10/17/18 14:56 Psychosis: Stable. CCM. 10/17/18 14:58 Psychosis: No change. CCM. 10/18/18 17:22 Psychosis: No change. CCM. Subjective: Pt seen, discussed with staff. Reports feeling "fine" today. Pleasant and interactive. Attending groups. Tearful this morning when talking about d/c plans with staff. This is related to ongoing delusional belief that he is going to be from his "". Remains compliant with meds. Objective: Vital Signs Temp Pulse Resp BP Pulse Ox 37.1 C 64 16 130/78 H 94 10/18/18 06:00 10/18/18 06:00 10/18/18 06:00 10/18/18 06:00 10/18/18 06:00 MSE: Calm, coop. Affect is euthymic, stable, approp. Mood is "good." TP linear. TC reveals continued delusional psychosis. - Time Spent With Patient Time Spent With Patient: 15" ICD10 Worksheet Patient Problems: Problems Problem Status Onset Dementia, vascular Acute Schizoaffective disorder, bipolar type Acute Ebony Acute
[2018-10-18] MEDS: MELATONIN 3 MG TAB PO SCH (20:47)
[2018-10-18] MEDS: risperiDONE 1 MG TAB PO SCH (20:47)
[2018-10-19] MEDS: FAMOTIDINE 20 MG TAB PO SCH ×2 (08:08→19:22)
[2018-10-19] MEDS: ATORVASTATIN CALCIUM 40 MG TAB PO SCH (08:08)
[2018-10-19] MEDS: DIVALPROEX ER 500 MG TAB PO SCH ×2 (08:08→19:22)
[2018-10-19] MEDS: NICOTINE 21 MG/24 HR PATCH TD SCH (08:08)
--- NOTE | 2018-10-19 11:58 | ASMTBHDC ---
Notes Note: Notes: [facility] denied admission. CC communicated with [facility]. Awaiting their response. Date Signed: 10/19/2018 11:57 AM Electronically Signed By:Karen Streeter
--- NOTE | 2018-10-19 16:07 | SOAPPROG ---
SOAP Progress Note Assessment/Plan: Assessment: Plan: 09/26/18 14:33 Psychosis: Remains acutely psychotic with manic tone. Will increase Risperdal to 2mg, continue Topamax. Will contact pt's brother for collateral information but don't have his number at this time. 09/27/18 12:14 Psychosis: Remains quite psychotic. Will increase Risperdal to 3mg, monitor. Have brother's phone number now. Will call. 09/28/18 12:06 Psychosis: No change. CCM. Unsure how to accomplish "ideal" d/c plan. Brother is guardian and needs to direct this. 10/02/18 10:45 Psychosis: Some improvement. CCM. Continue d/c planning. 10/04/18 16:18 Psychosis: Minimal change. CCM. Consider retrial of VPA. 10/04/18 16:29 Psychosis: Remains disorganized with residual manic sx's. Will retry VPA, starting at 1000mg BID. 10/05/18 14:50 Psychosis: No change in overall status. CCM. 10/08/18 14:34 Psychosis: Appears significantly better over weekend. CCM. May begin demential w/u to assist with placement. 10/09/18 15:10 Psychosis: Improvement with VPA, though remains gravely disabled, likely demented. CCM. 10/10/18 16:39 Psychosis: No change. CCM. 10/11/18 16:00 Psychosis: Pt remains delusional. Remains gravely disabled and lacking decisional capacity due to chronic psychosis and dementia. Will [facility], continue d /c planning. 10/12/18 16:13 Psychosis: No change. Generally calm. Remains gravely disabled and in need of supportive environment at d/c. 10/15/18 15:27 Psychosis: Stable. Will [facility], continue d/c planning. 10/17/18 14:56 Psychosis: Stable. CCM. 10/17/18 14:58 Psychosis: No change. CCM. 10/18/18 17:22 Psychosis: No change. CCM. 10/19/18 16:07 Psychosis: No change. CCM. Subjective: Pt seen, discussed with staff, interviewed in Treatment Team meeting. He remains upbeat and friendly. Participating in therapies. No behavioral issues. Compliant with meds. Grooming and self-care remains very poor. Objective: Vital Signs Temp Pulse Resp BP Pulse Ox 36.7 C 78 16 136/91 H 91 L 10/19/18 06:00 10/19/18 06:00 10/19/18 06:00 10/19/18 06:00 10/19/18 06:00 MSE: Calm, interactive. Affect is bright, smiling. Mood is "good." TP linear for brief periods, then tangential. TC reveals familiar delusional processes. - Time Spent With Patient Time Spent With Patient: 25" ICD10 Worksheet Patient Problems: Problems Problem Status Onset Dementia, vascular Acute Schizoaffective disorder, bipolar type Acute Ebony Acute
[2018-10-19] MEDS: MELATONIN 3 MG TAB PO SCH (19:22)
[2018-10-19] MEDS: risperiDONE 1 MG TAB PO SCH (19:22)
[2018-10-20] MEDS: NICOTINE POLACRILEX 2 MG GUM B PRN (01:14)
[2018-10-20] MEDS: ATORVASTATIN CALCIUM 40 MG TAB PO SCH (08:30)
[2018-10-20] MEDS: NICOTINE 21 MG/24 HR PATCH TD SCH (08:30)
[2018-10-20] MEDS: DIVALPROEX ER 500 MG TAB PO SCH ×2 (08:30→21:08)
[2018-10-20] MEDS: FAMOTIDINE 20 MG TAB PO SCH ×2 (08:30→21:09)
--- NOTE | 2018-10-20 17:43 | SOAPPROG ---
SOAP Progress Note Assessment/Plan: Assessment: Per Dr. Baer's most recent note: 10/15/18 15:27 Psychosis: Stable. Will [facility]CM, continue d/c planning. 10/17/18 14:56 Psychosis: Stable. CCM. 10/17/18 14:58 Psychosis: No change. CCM. 10/18/18 17:22 Psychosis: No change. CCM. 10/19/18 16:07 Psychosis: No change. CCM. Subjective: Pt seen, discussed with staff, interviewed in Treatment Team meeting. He remains upbeat and friendly. Participating in therapies. No behavioral issues. Compliant with meds. Grooming and self-care remains very poor. PLAN: 10/20/18 17:40 1. No change. Patient cooperative with treatment, taking meds. Poor self-care and needs prompting from staff for ADL's. 2. CCM Subjective: Patient is sitting in front of TV. He has been attending groups throughout the day with minimal participation. He remains psychotic and delusional, but pleasant and cooperative. Objective: Vital Signs Temp Pulse Resp BP Pulse Ox 36.4 C 71 16 151/79 H 94 10/20/18 06:00 10/20/18 06:00 10/20/18 06:00 10/20/18 06:00 10/20/18 06:00 MSE: Affect: Pleasant Mood: "Good" TP: Disorganized TC: Denies any SI/HI Insight/Judgment: Poor - Time Spent With Patient Time Spent With Patient: 15" - Pending Discharge Pending Discharge Within 24 Hours: No Pending Discharge Within 48 Hours: No ICD10 Worksheet Patient Problems: Problems Problem Status Onset Dementia, vascular Acute Schizoaffective disorder, bipolar type Acute Ebony Acute
[2018-10-20] MEDS: risperiDONE 1 MG TAB PO SCH (21:08)
[2018-10-20] MEDS: MELATONIN 3 MG TAB PO SCH (21:09)
[2018-10-21] MEDS: NICOTINE POLACRILEX 2 MG GUM B PRN ×2 (04:31→09:34)
[2018-10-21] MEDS: DIVALPROEX ER 500 MG TAB PO SCH ×2 (08:44→20:50)
[2018-10-21] MEDS: FAMOTIDINE 20 MG TAB PO SCH ×2 (08:44→20:50)
[2018-10-21] MEDS: NICOTINE 21 MG/24 HR PATCH TD SCH (08:44)
[2018-10-21] MEDS: ATORVASTATIN CALCIUM 40 MG TAB PO SCH (08:44)
--- NOTE | 2018-10-21 13:39 | ASMTCMCOM ---
CM Note CM Note Notes: The patient reported feeling "good" today. He expressed his gratitude for having been able to "shave." He described feeling confident in his appearance again. The patient has been attending groups and completing meals; he is calm, cheerful, and appropriate in the milieu. Date Signed: 10/21/2018 01:38 PM Electronically Signed By:Anne Gates
--- NOTE | 2018-10-21 14:40 | ASMTCMCOM ---
CM Note CM Note Notes: CC checked in with ct. He was very cheerful and talkative. Hygiene is still an issue. Ct. is participating in groups and reported that he likes the art group in particular. He is still on board with a care home placement. Date Signed: 10/21/2018 02:40 PM Electronically Signed By:Anne Gates
--- NOTE | 2018-10-21 18:02 | SOAPPROG ---
SOAP Progress Note Assessment/Plan: Assessment: Per Dr. Baer's most recent note: 10/15/18 15:27 Psychosis: Stable. Will CCM, continue d/c planning. 10/17/18 14:56 Psychosis: Stable. CCM. 10/17/18 14:58 Psychosis: No change. CCM. 10/18/18 17:22 Psychosis: No change. CCM. 10/19/18 16:07 Psychosis: No change. CCM. Subjective: Pt seen, discussed with staff, interviewed in Treatment Team meeting. He remains upbeat and friendly. Participating in therapies. No behavioral issues. Compliant with meds. Grooming and self-care remains very poor. PLAN: 10/20/18 17:40 1. No change. Patient cooperative with treatment, taking meds. Poor self-care and needs prompting from staff for ADL's. 2. CCM 10/21/18 17:58 1. Patient continues to present calm, pleasant, cooperative. 2. Patient attends most groups, makes a lot of drawings with colored pencils in free time. 3. No unsafe behaviors. 4. CCM 5. VOL Subjective: Patient standing at nurse's station requesting colored pencils for drawing. Patient has a number of pictures piled up on table that he's drawn. Some are portraits of peers and staff. Patient is pleasant and polite, no unsafe behaviors. Objective: Vital Signs Temp Pulse Resp BP Pulse Ox 36.6 C 75 16 110/70 96 10/21/18 06:00 10/21/18 06:00 10/21/18 06:00 10/21/18 06:00 10/21/18 06:00 MSE: Affect: Euthymic Mood: "Good" TP: Disorganized, illogical TC: Denies any SI/HI Insight/Judgment: Poor - Time Spent With Patient Time Spent With Patient: 15" - Pending Discharge Pending Discharge Within 24 Hours: No Pending Discharge Within 48 Hours: No ICD10 Worksheet Patient Problems: Problems Problem Status Onset Dementia, vascular Acute Schizoaffective disorder, bipolar type Acute Ebony Acute
[2018-10-21] MEDS: risperiDONE 1 MG TAB PO SCH (20:52)
[2018-10-21] MEDS: MELATONIN 3 MG TAB PO SCH (20:52)
[2018-10-22] MEDS: DIVALPROEX ER 500 MG TAB PO SCH ×2 (08:41→20:24)
[2018-10-22] MEDS: ATORVASTATIN CALCIUM 40 MG TAB PO SCH (08:41)
[2018-10-22] MEDS: FAMOTIDINE 20 MG TAB PO SCH ×2 (08:41→20:24)
[2018-10-22] MEDS: NICOTINE 21 MG/24 HR PATCH TD SCH (08:41)
--- NOTE | 2018-10-22 11:29 | ASMTCMCOM ---
CM Note CM Note Notes: Client remains in good spirit on the unit. CC will have to look through referrals and contact interested parties. Date Signed: 10/22/2018 11:28 AM Electronically Signed By:Joss Jones
--- NOTE | 2018-10-22 14:52 | SOAPPROG ---
SOAP Progress Note Assessment/Plan: Assessment: Plan: 09/26/18 14:33 Psychosis: Remains acutely psychotic with manic tone. Will increase Risperdal to 2mg, continue Topamax. Will contact pt's brother for collateral information but don't have his number at this time. 09/27/18 12:14 Psychosis: Remains quite psychotic. Will increase Risperdal to 3mg, monitor. Have brother's phone number now. Will call. 09/28/18 12:06 Psychosis: No change. CCM. Unsure how to accomplish "ideal" d/c plan. Brother is guardian and needs to direct this. 10/02/18 10:45 Psychosis: Some improvement. CCM. Continue d/c planning. 10/04/18 16:18 Psychosis: Minimal change. CCM. Consider retrial of VPA. 10/04/18 16:29 Psychosis: Remains disorganized with residual manic sx's. Will retry VPA, starting at 1000mg BID. 10/05/18 14:50 Psychosis: No change in overall status. CCM. 10/08/18 14:34 Psychosis: Appears significantly better over weekend. CCM. May begin demential w/u to assist with placement. 10/09/18 15:10 Psychosis: Improvement with VPA, though remains gravely disabled, likely demented. CCM. 10/10/18 16:39 Psychosis: No change. CCM. 10/11/18 16:00 Psychosis: Pt remains delusional. Remains gravely disabled and lacking decisional capacity due to chronic psychosis and dementia. Will CCM, continue d /c planning. 10/12/18 16:13 Psychosis: No change. Generally calm. Remains gravely disabled and in need of supportive environment at d/c. 10/15/18 15:27 Psychosis: Stable. Will CCM, continue d/c planning. 10/17/18 14:56 Psychosis: Stable. CCM. 10/17/18 14:58 Psychosis: No change. CCM. 10/18/18 17:22 Psychosis: No change. CCM. 10/19/18 16:07 Psychosis: No change. CCM. 10/22/18 14:52 Psychosis: No change. CCM. Subjective: Pt seen, discussed with staff. Reports feeling "just great." States he had a "really good" weekend. No c/o's. Remains compliant with meds and therapies. Objective: Vital Signs Temp Pulse Resp BP Pulse Ox 36.9 C 85 16 125/79 H 95 10/22/18 06:00 10/22/18 06:00 10/22/18 06:00 10/22/18 06:00 10/22/18 06:00 MSE: Calm, coop. Affect is euthymic, stable, approp. Mood is "great." TP is generally linear with some derailment. TC reveals less prominent delusional systems. - Time Spent With Patient Time Spent With Patient: 15" ICD10 Worksheet Patient Problems: Problems Problem Status Onset Dementia, vascular Acute Schizoaffective disorder, bipolar type Acute Ebony Acute
[2018-10-22] MEDS: MELATONIN 3 MG TAB PO SCH (20:24)
[2018-10-22] MEDS: risperiDONE 1 MG TAB PO SCH (20:24)
[2018-10-23] MEDS ORDERED: NICOTINE POLACRILEX 2 MG GUM B ONE (02:27)
[2018-10-23] MEDS: NICOTINE POLACRILEX 2 MG GUM B PRN (02:29)
[2018-10-23] MEDS: NICOTINE 21 MG/24 HR PATCH TD SCH (08:22)
[2018-10-23] MEDS: DIVALPROEX ER 500 MG TAB PO SCH ×2 (08:23→20:40)
[2018-10-23] MEDS: FAMOTIDINE 20 MG TAB PO SCH ×2 (08:23→20:40)
[2018-10-23] MEDS: ATORVASTATIN CALCIUM 40 MG TAB PO SCH (08:23)
--- NOTE | 2018-10-23 09:40 | ASMTCMCOM ---
CM Note CM Note Notes: CC checked in with ct. Ct. reported that he would like to be discharged. CC let ct. know that we are still looking for housing options. Ct. became tearful and said that he would like to be able to breath "fresh air". He was friendly and cooperative. Hygiene appears to be improving. Date Signed: 10/23/2018 09:04 AM Electronically Signed By:Karen Streeter
[2018-10-23] MEDS: MELATONIN 3 MG TAB PO SCH (20:40)
[2018-10-23] MEDS: risperiDONE 1 MG TAB PO SCH (20:40)
--- NOTE | 2018-10-23 20:42 | SOAPPROG ---
SOAP Progress Note Assessment/Plan: Assessment: Plan: 09/26/18 14:33 Psychosis: Remains acutely psychotic with manic tone. Will increase Risperdal to 2mg, continue Topamax. Will contact pt's brother for collateral information but don't have his number at this time. 09/27/18 12:14 Psychosis: Remains quite psychotic. Will increase Risperdal to 3mg, monitor. Have brother's phone number now. Will call. 09/28/18 12:06 Psychosis: No change. CCM. Unsure how to accomplish "ideal" d/c plan. Brother is guardian and needs to direct this. 10/02/18 10:45 Psychosis: Some improvement. CCM. Continue d/c planning. 10/04/18 16:18 Psychosis: Minimal change. CCM. Consider retrial of VPA. 10/04/18 16:29 Psychosis: Remains disorganized with residual manic sx's. Will retry VPA, starting at 1000mg BID. 10/05/18 14:50 Psychosis: No change in overall status. CCM. 10/08/18 14:34 Psychosis: Appears significantly better over weekend. CCM. May begin demential w/u to assist with placement. 10/09/18 15:10 Psychosis: Improvement with VPA, though remains gravely disabled, likely demented. CCM. 10/10/18 16:39 Psychosis: No change. CCM. 10/11/18 16:00 Psychosis: Pt remains delusional. Remains gravely disabled and lacking decisional capacity due to chronic psychosis and dementia. Will CCM, continue d /c planning. 10/12/18 16:13 Psychosis: No change. Generally calm. Remains gravely disabled and in need of supportive environment at d/c. 10/15/18 15:27 Psychosis: Stable. Will CCM, continue d/c planning. 10/17/18 14:56 Psychosis: Stable. CCM. 10/17/18 14:58 Psychosis: No change. CCM. 10/18/18 17:22 Psychosis: No change. CCM. 10/19/18 16:07 Psychosis: No change. CCM. 10/22/18 14:52 Psychosis: No change. CCM. 10/24/18 12:11 Psychosis: No change. CCM. Await placement. Subjective: Pt seen, discussed with staff. States he is "sad to be here on [place]." Otherwise doing well. No change in behaviors. Compliant with meds. Objective: Vital Signs Temp Pulse Resp BP Pulse Ox 36.4 C 82 18 125/76 H 96 10/23/18 06:00 10/23/18 06:00 10/23/18 06:00 10/23/18 06:00 10/23/18 06:00 MSE: Marginally groomed, pleasant and coop. Affect is bright, stable, approp. Mood is "good." TP is generally disorganized. TC reveals familiar delusional systems. - Time Spent With Patient Time Spent With Patient: 15" ICD10 Worksheet Patient Problems: Problems Problem Status Onset Dementia, vascular Acute Schizoaffective disorder, bipolar type Acute Ebony Acute
[2018-10-24] MEDS: ATORVASTATIN CALCIUM 40 MG TAB PO SCH (10:00)
[2018-10-24] MEDS: DIVALPROEX ER 500 MG TAB PO SCH ×2 (10:00→20:08)
[2018-10-24] MEDS: FAMOTIDINE 20 MG TAB PO SCH ×2 (10:00→20:08)
[2018-10-24] MEDS: NICOTINE 21 MG/24 HR PATCH TD SCH (10:00)
[2018-10-24] MEDS: NICOTINE POLACRILEX 2 MG GUM B PRN (10:02)
--- NOTE | 2018-10-24 12:14 | SOAPPROG ---
SOAP Progress Note Assessment/Plan: Assessment: Plan: 09/26/18 14:33 Psychosis: Remains acutely psychotic with manic tone. Will increase Risperdal to 2mg, continue Topamax. Will contact pt's brother for collateral information but don't have his number at this time. 09/27/18 12:14 Psychosis: Remains quite psychotic. Will increase Risperdal to 3mg, monitor. Have brother's phone number now. Will call. 09/28/18 12:06 Psychosis: No change. CCM. Unsure how to accomplish "ideal" d/c plan. Brother is guardian and needs to direct this. 10/02/18 10:45 Psychosis: Some improvement. CCM. Continue d/c planning. 10/04/18 16:18 Psychosis: Minimal change. CCM. Consider retrial of VPA. 10/04/18 16:29 Psychosis: Remains disorganized with residual manic sx's. Will retry VPA, starting at 1000mg BID. 10/05/18 14:50 Psychosis: No change in overall status. CCM. 10/08/18 14:34 Psychosis: Appears significantly better over weekend. CCM. May begin demential w/u to assist with placement. 10/09/18 15:10 Psychosis: Improvement with VPA, though remains gravely disabled, likely demented. CCM. 10/10/18 16:39 Psychosis: No change. CCM. 10/11/18 16:00 Psychosis: Pt remains delusional. Remains gravely disabled and lacking decisional capacity due to chronic psychosis and dementia. Will CCM, continue d /c planning. 10/12/18 16:13 Psychosis: No change. Generally calm. Remains gravely disabled and in need of supportive environment at d/c. 10/15/18 15:27 Psychosis: Stable. Will CCM, continue d/c planning. 10/17/18 14:56 Psychosis: Stable. CCM. 10/17/18 14:58 Psychosis: No change. CCM. 10/18/18 17:22 Psychosis: No change. CCM. 10/19/18 16:07 Psychosis: No change. CCM. 10/22/18 14:52 Psychosis: No change. CCM. 10/24/18 12:11 Psychosis: No change. CCM. Await placement. 10/24/18 12:13 Psychosis: No change. CCM. Continue to struggle with d/c plan. Subjective: Pt seen, discussed with staff. Reports feeling "just fine." Upbeat, talking with others in day room. No c/o's. Objective: Vital Signs Temp Pulse Resp BP Pulse Ox 36.3 C 72 16 143/90 H 93 10/24/18 06:00 10/24/18 06:00 10/24/18 06:00 10/24/18 06:00 10/24/18 06:00 MSE: Calm, coop, interactive. Affect is euthymic, stable, approp. Mood is "good." TP disorganized. TC reveals no change in nature or severity of psychosis. - Time Spent With Patient Time Spent With Patient: 15" ICD10 Worksheet Patient Problems: Problems Problem Status Onset Dementia, vascular Acute Schizoaffective disorder, bipolar type Acute Ebony Acute
--- NOTE | 2018-10-24 12:19 | ASMTCMCOM ---
CM Note CM Note Notes: Client continues to do well on the unit. CC responded back to an inquiry by [facility] ; waiting for additional response, they are interested in client. Also, contacted Emily again with [facility], no answer left a detailed VM with all necessary contact information Date Signed: 10/24/2018 12:18 PM Electronically Signed By:Joss Jones
--- NOTE | 2018-10-24 14:22 | ASMTCMCOM ---
CM Note CM Note Notes: CC sent another round of referrals to broaden search for LTC facility. Waiting on responses. Date Signed: 10/24/2018 02:21 PM Electronically Signed By:Joss Jones
[2018-10-24] MEDS: risperiDONE 1 MG TAB PO SCH (20:08)
[2018-10-24] MEDS: MELATONIN 3 MG TAB PO SCH (20:08)
[2018-10-25] MEDS: NICOTINE POLACRILEX 2 MG GUM B PRN (04:47)
[2018-10-25] MEDS: DIVALPROEX ER 500 MG TAB PO SCH ×2 (08:10→20:49)
[2018-10-25] MEDS: ATORVASTATIN CALCIUM 40 MG TAB PO SCH (08:10)
[2018-10-25] MEDS: FAMOTIDINE 20 MG TAB PO SCH ×2 (08:10→20:49)
--- NOTE | 2018-10-25 08:12 | ASMTCMCOM ---
CM Note CM Note Notes: CC reached out to several locations after sending a round of referrals yesterday. 1. Out-Reached Andriy, with [facility] at [phone], to schedule a on-site visit. No answer left a detailed VM with all necessary return contact information. 2. Out[facility]Reached, Ha, at [phone], no answer left a detailed VM with all necessary return contact informaiton.* 3. Out-Reached, edith Sanders in regards to [facility], at [phone], no answer left a detailed VM with all necessary return contact information.* 4. Out-reached, Andrea from [place], at [phone], no answer left a detailed VM with all necessary contact information. Date Signed: 10/25/2018 08:11 AM Electronically Signed By:Joss Jones
[2018-10-25] MEDS: NICOTINE 21 MG/24 HR PATCH TD SCH (08:59)
--- NOTE | 2018-10-25 12:46 | ASMTCMCOM ---
CM Note CM Note Notes: CC spoke to Marilyn with [facility] at [phone]; who asked for client's POA name and phone number, provided that information. Marilyn will contact this curriculum writer back after speaking to BOC. She requested POA from brother. Waiting to hear back.* Date Signed: 10/25/2018 12:45 PM Electronically Signed By:Joss Jones
--- NOTE | 2018-10-25 17:30 | SOAPPROG ---
SOAP Progress Note Assessment/Plan: Assessment: Plan: 09/26/18 14:33 Psychosis: Remains acutely psychotic with manic tone. Will increase Risperdal to 2mg, continue Topamax. Will contact pt's brother for collateral information but don't have his number at this time. 09/27/18 12:14 Psychosis: Remains quite psychotic. Will increase Risperdal to 3mg, monitor. Have brother's phone number now. Will call. 09/28/18 12:06 Psychosis: No change. CCM. Unsure how to accomplish "ideal" d/c plan. Brother is guardian and needs to direct this. 10/02/18 10:45 Psychosis: Some improvement. CCM. Continue d/c planning. 10/04/18 16:18 Psychosis: Minimal change. CCM. Consider retrial of VPA. 10/04/18 16:29 Psychosis: Remains disorganized with residual manic sx's. Will retry VPA, starting at 1000mg BID. 10/05/18 14:50 Psychosis: No change in overall status. CCM. 10/08/18 14:34 Psychosis: Appears significantly better over weekend. CCM. May begin demential w/u to assist with placement. 10/09/18 15:10 Psychosis: Improvement with VPA, though remains gravely disabled, likely demented. CCM. 10/10/18 16:39 Psychosis: No change. CCM. 10/11/18 16:00 Psychosis: Pt remains delusional. Remains gravely disabled and lacking decisional capacity due to chronic psychosis and dementia. Will CCM, continue d /c planning. 10/12/18 16:13 Psychosis: No change. Generally calm. Remains gravely disabled and in need of supportive environment at d/c. 10/15/18 15:27 Psychosis: Stable. Will CCM, continue d/c planning. 10/17/18 14:56 Psychosis: Stable. CCM. 10/17/18 14:58 Psychosis: No change. CCM. 10/18/18 17:22 Psychosis: No change. CCM. 10/19/18 16:07 Psychosis: No change. CCM. 10/22/18 14:52 Psychosis: No change. CCM. 10/24/18 12:11 Psychosis: No change. CCM. Await placement. 10/24/18 12:13 Psychosis: No change. CCM. Continue to struggle with d/c plan. 10/25/18 17:30 Psychosis: No change. CCM. Subjective: Pt seen, discussed with staff. REports feeling "just fine" today. No c/o's. Some drama with fellow patient in re: to rivalry for a young female patient's attentions. No behavioral issues. Compliant with all meds and therapies. Objective: Vital Signs Temp Pulse Resp BP Pulse Ox 36.8 C 63 16 144/86 H 93 10/25/18 06:00 10/25/18 06:00 10/25/18 06:00 10/25/18 06:00 10/25/18 06:00 MSE: Calm, coop. Affect is bright, stable, approp. Mood is "good." TP is tangential. TC reveals continued delusions. - Time Spent With Patient Time Spent With Patient: 15" ICD10 Worksheet Patient Problems: Problems Problem Status Onset Dementia, vascular Acute Schizoaffective disorder, bipolar type Acute Ebony Acute
[2018-10-25] MEDS: risperiDONE 1 MG TAB PO SCH (20:48)
[2018-10-25] MEDS: MELATONIN 3 MG TAB PO SCH (20:49)
[2018-10-26] MEDS: FAMOTIDINE 20 MG TAB PO SCH ×2 (09:00→20:24)
[2018-10-26] MEDS: DIVALPROEX ER 500 MG TAB PO SCH ×2 (09:00→20:23)
[2018-10-26] MEDS: NICOTINE 21 MG/24 HR PATCH TD SCH (09:00)
[2018-10-26] MEDS: ATORVASTATIN CALCIUM 40 MG TAB PO SCH (09:00)
--- NOTE | 2018-10-26 11:09 | ASMTCMCOM ---
CM Note CM Note Notes: CC spoke to Marilyn from [facility], at ; she noted that we "are 90% sure that the client will be a great [facility] [place], we are waiting for [facility] to send the first month payment, which after speaking to Logan, he stated he could do that on Monday." CC was advised that [facility] had concerns regarding PT, & OT offered through Medicare, etc. CC will try to reach out to [facility] today, while planned for an update on Monday with Marilyn. Date Signed: 10/26/2018 11:09 AM Electronically Signed By:Joss Jones
--- NOTE | 2018-10-26 16:34 | SOAPPROG ---
SOAP Progress Note Assessment/Plan: Assessment: Plan: 09/26/18 14:33 Psychosis: Remains acutely psychotic with manic tone. Will increase Risperdal to 2mg, continue Topamax. Will contact pt's brother for collateral information but don't have his number at this time. 09/27/18 12:14 Psychosis: Remains quite psychotic. Will increase Risperdal to 3mg, monitor. Have brother's phone number now. Will call. 09/28/18 12:06 Psychosis: No change. CCM. Unsure how to accomplish "ideal" d/c plan. Brother is guardian and needs to direct this. 10/02/18 10:45 Psychosis: Some improvement. CCM. Continue d/c planning. 10/04/18 16:18 Psychosis: Minimal change. CCM. Consider retrial of VPA. 10/04/18 16:29 Psychosis: Remains disorganized with residual manic sx's. Will retry VPA, starting at 1000mg BID. 10/05/18 14:50 Psychosis: No change in overall status. CCM. 10/08/18 14:34 Psychosis: Appears significantly better over weekend. CCM. May begin demential w/u to assist with placement. 10/09/18 15:10 Psychosis: Improvement with VPA, though remains gravely disabled, likely demented. CCM. 10/10/18 16:39 Psychosis: No change. CCM. 10/11/18 16:00 Psychosis: Pt remains delusional. Remains gravely disabled and lacking decisional capacity due to chronic psychosis and dementia. Will CCM, continue d /c planning. 10/12/18 16:13 Psychosis: No change. Generally calm. Remains gravely disabled and in need of supportive environment at d/c. 10/15/18 15:27 Psychosis: Stable. Will CCM, continue d/c planning. 10/17/18 14:56 Psychosis: Stable. CCM. 10/17/18 14:58 Psychosis: No change. CCM. 10/18/18 17:22 Psychosis: No change. CCM. 10/19/18 16:07 Psychosis: No change. CCM. 10/22/18 14:52 Psychosis: No change. CCM. 10/24/18 12:11 Psychosis: No change. CCM. Await placement. 10/24/18 12:13 Psychosis: No change. CCM. Continue to struggle with d/c plan. 10/25/18 17:30 Psychosis: No change. CCM. 10/26/18 16:34 Psychosis: No change. CCM. Continue active d/c planning. Subjective: Pt seen, discussed with staff, interviewed in Treatment Team meeting. He remains upbeat and is quite pleased with possibility of going to a SNF now. Team gave positive feedback to pt in regards to being intelligent and he was very happy about this. States, "They told me my brain was broken and you said I 'm intelligent. I always new I was." No behavioral issues. Compliant with meds, active in groups. Has gained 20 pounds since admit. Objective: Vital Signs Temp Pulse Resp BP Pulse Ox 36.8 C 82 20 111/70 95 10/26/18 06:00 10/26/18 06:00 10/26/18 06:00 10/26/18 06:00 10/26/18 06:00 MSE: Calm, coop. Affect is euthymic, stable, approp. Mood is "good." TP is generally linear though gets off track frequently - easily redirected. TC reveals much less mention of delusions. No SI/HI/. - Time Spent With Patient Time Spent With Patient: 25" ICD10 Worksheet Patient Problems: Problems Problem Status Onset Dementia, vascular Acute Schizoaffective disorder, bipolar type Acute Ebony Acute
[2018-10-26] MEDS: risperiDONE 1 MG TAB PO SCH (20:24)
[2018-10-26] MEDS: MELATONIN 3 MG TAB PO SCH (20:24)
[2018-10-27] MEDS: DIVALPROEX ER 500 MG TAB PO SCH ×2 (08:21→20:26)
[2018-10-27] MEDS: NICOTINE 21 MG/24 HR PATCH TD SCH (08:21)
[2018-10-27] MEDS: FAMOTIDINE 20 MG TAB PO SCH ×2 (08:21→20:27)
[2018-10-27] MEDS: ATORVASTATIN CALCIUM 40 MG TAB PO SCH (08:21)
[2018-10-27] MEDS ORDERED: LORazepam 1 MG TAB PO PRN (13:30)
--- NOTE | 2018-10-27 14:57 | ASMTCMCOM ---
CM Note CM Note Notes: Pt. reports feeling "pretty bad". Pt. stated he had a "horrible night" adding he had nightmares due to not removing his nicotine patch. Pt. stated "I have a girlfriend who isn't real". Pt. shared about being upset with the night staff and how they prepared his leftover food. Pt. stated "I want to use all my martial arts to hurt this bryce" adding "I won't, I promise, I won't". Pt. shared about a peer pt who is upset with him and called him names. Pt. stated this peer pt tried to apologize but pt. "won't forgive him". Pt. stated he doesn't like feeling upset at other people, adding "this feeling is worse than being jailed". Pt. stated "Don't like where my head is right now". Pt. stated "I believe thinks that aren't real because I'm alone and don't want to be alone". Pt. began to cry at this time. Pt. stated he wants to live with a girl he met on facebook, but stated he needed to meet her in person first. Pt. stated he was delusional, adding he thought "that I want on the radio". Pt. denied SI, AVH and paranoia. Pt. stated he has gained 30lbs in the past two weeks due to being on Depakote. Pt. presents as alert, upset, labile, cooperative, good eye contact, groomed, and mostly pleasant with CC. Staff report pt. sleeping 9 hours and being medication compliant. Date Signed: 10/27/2018 02:57 PM Electronically Signed By:Danielle Ríos
--- NOTE | 2018-10-27 15:30 | ASMTBHDC ---
Notes Note: Notes: CC received the following voice mail messages about pt. Emily from [facility] in [facility] ([phone]) stated pt was originally denied, but she is now requesting any information on improvements and to please call on Monday10/29/18 and to fax over any updated notes. Date Signed: 10/27/2018 03:30 PM Electronically Signed By:Danielle Ríos
--- NOTE | 2018-10-27 16:45 | SOAPPROG ---
SOAP Progress Note Assessment/Plan: Assessment: Per Dr. Baer's most recent note: 10/22/18 14:52 Psychosis: No change. CCM. 10/24/18 12:11 Psychosis: No change. CCM. Await placement. 10/24/18 12:13 Psychosis: No change. CCM. Continue to struggle with d/c plan. 10/25/18 17:30 Psychosis: No change. CCM. 10/26/18 16:34 Psychosis: No change. CCM. Continue active d/c planning. Subjective: Pt seen, discussed with staff, interviewed in Treatment Team meeting. He remains upbeat and is quite pleased with possibility of going to a SNF now. Team gave positive feedback to pt in regards to being intelligent and he was very happy about this. States, "They told me my brain was broken and you said I 'm intelligent. I always new I was." No behavioral issues. Compliant with meds, active in groups. Has gained 20 pounds since admit. PLAN: 10/27/18 16:41 1. Patient concerned about significant weight gain since starting Depakote. 2. Patient more irritable today b/c he was upset with staff about the dinner he ordered from [employer] last night. 3. Patient said he had "horrible nightmares" last night b/c he forgot to take off his nicotine patch. 4. CCM Subjective: Patient angry with staff last night b/c they didn't heat up his dinner that he ordered from [employer] the way he wanted. He told RN today that he could "slit his (staff from last night) throat and break both his legs." Patient later admitted he didn't actually plan to hurt staff or anyone else. He claims he only said it b/c he was so angry. Patient took shower and wet his hair. By this afternoon, patient was calmer and more relaxed. Objective: Vital Signs Temp Pulse Resp BP Pulse Ox 36.4 C 70 14 126/75 H 97 10/27/18 06:00 10/27/18 06:00 10/27/18 06:00 10/27/18 06:00 10/27/18 06:00 MSE: Affect: Irritable at times, calmer by PM Mood: "OK" TP: Perseverative TC : Denies SI/HI, made threats toward staff but later admitted he had no intention of acting on them Insight/Judgment: Poor - Time Spent With Patient Time Spent With Patient: 15" - Pending Discharge Pending Discharge Within 24 Hours: No Pending Discharge Within 48 Hours: No ICD10 Worksheet Patient Problems: Problems Problem Status Onset Dementia, vascular Acute Schizoaffective disorder, bipolar type Acute Ebony Acute
[2018-10-27] MEDS: MELATONIN 3 MG TAB PO SCH (20:26)
[2018-10-27] MEDS: risperiDONE 1 MG TAB PO SCH (20:26)
[2018-10-28] MEDS: FAMOTIDINE 20 MG TAB PO SCH ×2 (10:13→20:30)
[2018-10-28] MEDS: ATORVASTATIN CALCIUM 40 MG TAB PO SCH (10:13)
[2018-10-28] MEDS: DIVALPROEX ER 500 MG TAB PO SCH ×2 (10:13→20:30)
[2018-10-28] MEDS: NICOTINE 21 MG/24 HR PATCH TD SCH (10:13)
--- NOTE | 2018-10-28 14:46 | ASMTBHDC ---
Notes Note: Notes: CC spoke with pt's brother Logan ([phone]) BOC stated he has been working with [employer] and is currently working on setting up automatic payments. [facility] requested [facility] staff to continue working with [facility] in [facility], as pt's other brother lives in [facility]. [facility] requested a call back on Monday10/29/18. Date Signed: 10/28/2018 02:46 PM Electronically Signed By:Danielle Ríos
--- NOTE | 2018-10-28 17:40 | SOAPPROG ---
SOAP Progress Note Assessment/Plan: Assessment: Per Dr. Baer's most recent note: 10/22/18 14:52 Psychosis: No change. CCM. 10/24/18 12:11 Psychosis: No change. CCM. Await placement. 10/24/18 12:13 Psychosis: No change. CCM. Continue to struggle with d/c plan. 10/25/18 17:30 Psychosis: No change. CCM. 10/26/18 16:34 Psychosis: No change. CCM. Continue active d/c planning. Subjective: Pt seen, discussed with staff, interviewed in Treatment Team meeting. He remains upbeat and is quite pleased with possibility of going to a SNF now. Team gave positive feedback to pt in regards to being intelligent and he was very happy about this. States, "They told me my brain was broken and you said I 'm intelligent. I always new I was." No behavioral issues. Compliant with meds, active in groups. Has gained 20 pounds since admit. PLAN: 10/27/18 16:41 1. Patient concerned about significant weight gain since starting Depakote. 2. Patient more irritable today b/c he was upset with staff about the dinner he ordered from [employer] last night. 3. Patient said he had "horrible nightmares" last night b/c he forgot to take off his nicotine patch. 4. [facility] 10/28/18 17:37 1. Patient much less irritable today. He has returned to his usual cheerful, pleasant affect. 2. Less emotional lability. Attended groups. 3. CC attempted to contacted [facility] about placement options. 4. [facility] Subjective: Patient is back to his usual bright, cheerful, pleasant affect. He attended groups this AM and was very positive, stating "I like this group." He has no physical complaints and denies any SE's from meds other than significant weight gain from VPA. Objective: Vital Signs Temp Pulse Resp BP Pulse Ox 36.7 C 96 15 111/69 94 10/28/18 06:00 10/28/18 06:00 10/28/18 06:00 10/28/18 06:00 10/28/18 06:00 MSE: Affect: Pleasant, cheerful Mood: "OK" TP: Tangential TC: Denies any SI/ HI Perception: Denies any AH/VH Insight/Judgment: Poor - Time Spent With Patient Time Spent With Patient: 15" - Pending Discharge Pending Discharge Within 24 Hours: No Pending Discharge Within 48 Hours: No ICD10 Worksheet Patient Problems: Problems Problem Status Onset Dementia, vascular Acute Schizoaffective disorder, bipolar type Acute Ebony Acute
[2018-10-28] MEDS: MELATONIN 3 MG TAB PO SCH (20:30)
[2018-10-28] MEDS: risperiDONE 1 MG TAB PO SCH (20:30)
[2018-10-29] MEDS: NICOTINE 21 MG/24 HR PATCH TD SCH (08:48)
[2018-10-29] MEDS: DIVALPROEX ER 500 MG TAB PO SCH ×2 (08:49→19:14)
[2018-10-29] MEDS: ATORVASTATIN CALCIUM 40 MG TAB PO SCH (08:49)
[2018-10-29] MEDS: FAMOTIDINE 20 MG TAB PO SCH ×2 (08:49→19:14)
--- NOTE | 2018-10-29 14:50 | ASMTBHDC ---
Notes Note: Notes: CC spoke with operations coordinator, Antoni, at [facility]. Antoni stated they are waiting on initial payment from pt's POA. Antoni stated they expect this payment to be completed by tomorrow (10/30/18). Antoni stated they are "planning admission for ", adding [facility] will reach out on Monday to [facility] staff. Antoni provided the liaison, Marilyn's contact number ([phone]). GABRIEL left a message with Marilyn checking if she has everything she needs. Date Signed: 10/29/2018 02:48 PM Electronically Signed By:Danielle Ríos
--- NOTE | 2018-10-29 14:55 | SOAPPROG ---
SOAP Progress Note Assessment/Plan: Assessment: Plan: 09/26/18 14:33 Psychosis: Remains acutely psychotic with manic tone. Will increase Risperdal to 2mg, continue Topamax. Will contact pt's brother for collateral information but don't have his number at this time. 09/27/18 12:14 Psychosis: Remains quite psychotic. Will increase Risperdal to 3mg, monitor. Have brother's phone number now. Will call. 09/28/18 12:06 Psychosis: No change. CCM. Unsure how to accomplish "ideal" d/c plan. Brother is guardian and needs to direct this. 10/02/18 10:45 Psychosis: Some improvement. CCM. Continue d/c planning. 10/04/18 16:18 Psychosis: Minimal change. CCM. Consider retrial of VPA. 10/04/18 16:29 Psychosis: Remains disorganized with residual manic sx's. Will retry VPA, starting at 1000mg BID. 10/05/18 14:50 Psychosis: No change in overall status. CCM. 10/08/18 14:34 Psychosis: Appears significantly better over weekend. CCM. May begin demential w/u to assist with placement. 10/09/18 15:10 Psychosis: Improvement with VPA, though remains gravely disabled, likely demented. CCM. 10/10/18 16:39 Psychosis: No change. CCM. 10/11/18 16:00 Psychosis: Pt remains delusional. Remains gravely disabled and lacking decisional capacity due to chronic psychosis and dementia. Will CCM, continue d /c planning. 10/12/18 16:13 Psychosis: No change. Generally calm. Remains gravely disabled and in need of supportive environment at d/c. 10/15/18 15:27 Psychosis: Stable. Will CCM, continue d/c planning. 10/17/18 14:56 Psychosis: Stable. CCM. 10/17/18 14:58 Psychosis: No change. CCM. 10/18/18 17:22 Psychosis: No change. CCM. 10/19/18 16:07 Psychosis: No change. CCM. 10/22/18 14:52 Psychosis: No change. CCM. 10/24/18 12:11 Psychosis: No change. CCM. Await placement. 10/24/18 12:13 Psychosis: No change. CCM. Continue to struggle with d/c plan. 10/25/18 17:30 Psychosis: No change. CCM. 10/26/18 16:34 Psychosis: No change. CCM. Continue active d/c planning. 10/29/18 14:54 Psychosis: Stable though weight gain is concerning. Will change VPA to Topamax , monitor. The risks, benefits and alternatives of this are reviewed with pt and he agrees. Subjective: Pt seen, discussed with staff, chart reviewed. He had an up and down weekend. Became angry with staff for allowing his food to touch. Was able to get over this. Today states he is excited about the prospect of leaving hospital. Asks about changing VPA back to Topamax that he took before. States he "gained way too much weight" on VPA before. Objective: Vital Signs Temp Pulse Resp BP Pulse Ox 36.7 C 96 15 111/69 94 10/28/18 06:00 10/28/18 06:00 10/28/18 06:00 10/28/18 06:00 10/28/18 06:00 MSE: Calm, coop. Affect is bright, stable, approp. Mood is "good." TP is linear. TC reveals familiar delusions, though less prominent. No SI/HI/. - Time Spent With Patient Time Spent With Patient: 15" ICD10 Worksheet Patient Problems: Problems Problem Status Onset Dementia, vascular Acute Schizoaffective disorder, bipolar type Acute Ebony Acute
[2018-10-29] MEDS: MELATONIN 3 MG TAB PO SCH (19:14)
[2018-10-29] MEDS: risperiDONE 1 MG TAB PO SCH (19:14)
[2018-10-29] MEDS: TOPIRAMATE 25 MG TAB PO SCH (19:14)
[2018-10-30] MEDS: DIVALPROEX ER 500 MG TAB PO SCH ×2 (08:35→20:42)
[2018-10-30] MEDS: ATORVASTATIN CALCIUM 40 MG TAB PO SCH (08:36)
[2018-10-30] MEDS: FAMOTIDINE 20 MG TAB PO SCH ×2 (08:36→20:43)
[2018-10-30] MEDS: NICOTINE 21 MG/24 HR PATCH TD SCH (08:36)
[2018-10-30] MEDS: TOPIRAMATE 25 MG TAB PO SCH ×2 (08:36→20:46)
--- NOTE | 2018-10-30 11:47 | SOAPPROG ---
SOAP Progress Note Assessment/Plan: Assessment: Plan: 09/26/18 14:33 Psychosis: Remains acutely psychotic with manic tone. Will increase Risperdal to 2mg, continue Topamax. Will contact pt's brother for collateral information but don't have his number at this time. 09/27/18 12:14 Psychosis: Remains quite psychotic. Will increase Risperdal to 3mg, monitor. Have brother's phone number now. Will call. 09/28/18 12:06 Psychosis: No change. CCM. Unsure how to accomplish "ideal" d/c plan. Brother is guardian and needs to direct this. 10/02/18 10:45 Psychosis: Some improvement. CCM. Continue d/c planning. 10/04/18 16:18 Psychosis: Minimal change. CCM. Consider retrial of VPA. 10/04/18 16:29 Psychosis: Remains disorganized with residual manic sx's. Will retry VPA, starting at 1000mg BID. 10/05/18 14:50 Psychosis: No change in overall status. CCM. 10/08/18 14:34 Psychosis: Appears significantly better over weekend. CCM. May begin demential w/u to assist with placement. 10/09/18 15:10 Psychosis: Improvement with VPA, though remains gravely disabled, likely demented. CCM. 10/10/18 16:39 Psychosis: No change. CCM. 10/11/18 16:00 Psychosis: Pt remains delusional. Remains gravely disabled and lacking decisional capacity due to chronic psychosis and dementia. Will CCM, continue d /c planning. 10/12/18 16:13 Psychosis: No change. Generally calm. Remains gravely disabled and in need of supportive environment at d/c. 10/15/18 15:27 Psychosis: Stable. Will CCM, continue d/c planning. 10/17/18 14:56 Psychosis: Stable. CCM. 10/17/18 14:58 Psychosis: No change. CCM. 10/18/18 17:22 Psychosis: No change. CCM. 10/19/18 16:07 Psychosis: No change. CCM. 10/22/18 14:52 Psychosis: No change. CCM. 10/24/18 12:11 Psychosis: No change. CCM. Await placement. 10/24/18 12:13 Psychosis: No change. CCM. Continue to struggle with d/c plan. 10/25/18 17:30 Psychosis: No change. CCM. 10/26/18 16:34 Psychosis: No change. CCM. Continue active d/c planning. 10/29/18 14:54 Psychosis: Stable though weight gain is concerning. Will change VPA to Topamax , monitor. The risks, benefits and alternatives of this are reviewed with pt and he agrees. 10/30/18 11:47 Psychosis: No change. CCM. Subjective: Pt seen, discussed with staff. I discussed his d/c plan with him and he is "ecstatic" that he may d/c soon. He remains present in the milieu, compliant with reverse room protocol and meds. No behavioral issues. Objective: Vital Signs Temp Pulse Resp BP Pulse Ox 36.7 C 96 15 111/69 94 10/28/18 06:00 10/28/18 06:00 10/28/18 06:00 10/28/18 06:00 10/28/18 06:00 MSE: Calm, coop. Affect is bright, stable, approp. Mood is "good." TP is generally linear. TC reveals continued delusions. - Time Spent With Patient Time Spent With Patient: 15" ICD10 Worksheet Patient Problems: Problems Problem Status Onset Dementia, vascular Acute Schizoaffective disorder, bipolar type Acute Ebony Acute
--- NOTE | 2018-10-30 12:52 | ASMTCMCOM ---
CM Note CM Note Notes: The patient cheerful and engaged. He reported employing creative writing/journaling as a coping strategy despite a "not having a very good" New Year's denzel. The patient is hopeful regarding his anticipated discharge and possible admission to [facility]. Date Signed: 10/30/2018 12:52 PM Electronically Signed By:Anne Gates
[2018-10-30] MEDS: risperiDONE 1 MG TAB PO SCH (20:44)
[2018-10-30] MEDS: MELATONIN 3 MG TAB PO SCH (20:44)
[2018-10-31] MEDS: TOPIRAMATE 25 MG TAB PO SCH ×2 (08:04→21:17)
[2018-10-31] MEDS: ATORVASTATIN CALCIUM 40 MG TAB PO SCH (08:04)
[2018-10-31] MEDS: NICOTINE 21 MG/24 HR PATCH TD SCH (08:04)
[2018-10-31] MEDS: FAMOTIDINE 20 MG TAB PO SCH ×2 (08:04→21:18)
[2018-10-31] MEDS: DIVALPROEX ER 500 MG TAB PO SCH ×2 (08:04→21:18)
--- NOTE | 2018-10-31 16:49 | SOAPPROG ---
SOAP Progress Note Assessment/Plan: Assessment: Per Dr. Baer's most recent note: 10/29/18 14:54 Psychosis: Stable though weight gain is concerning. Will change VPA to Topamax , monitor. The risks, benefits and alternatives of this are reviewed with pt and he agrees. 10/30/18 11:47 Psychosis: No change. CCM. Subjective: Pt seen, discussed with staff. I discussed his d/c plan with him and he is "ecstatic" that he may d/c soon. He remains present in the milieu, compliant with reverse room protocol and meds. No behavioral issues. PLAN: 10/31/18 16:47 1. Patient very excited to be discharging tomorrow. He is happy to leave hospital. 2. Patient participated in mindfulness group this AM. He says he has really enjoyed group therapy on unit. 3. Will d/c tomorrow [facility]. Subjective: Patient is smiling and says he's very happy to be leaving hospital tomorrow. He has actively participated in groups today and denies any complaints. Objective: Vital Signs Temp Pulse Resp BP Pulse Ox 36.5 C 81 16 140/89 H 92 10/31/18 06:00 10/31/18 06:00 10/31/18 06:00 10/31/18 06:00 10/31/18 06:00 MSE: Affect: Bright, cheerful Mood: Happy TP: Tangential TC: Denies any SI/ HI Insight/Judgment: Poor - Time Spent With Patient Time Spent With Patient: 15" - Pending Discharge Pending Discharge Within 24 Hours: Yes Pending Discharge Date: 11/01/18 (D/C tomorrow ) Pending Discharge Time: 11:00 ICD10 Worksheet Patient Problems: Problems Problem Status Onset Dementia, vascular Acute Schizoaffective disorder, bipolar type Acute Ebony Acute
--- NOTE | 2018-10-31 18:24 | BDS ---
REASON FOR ADMISSION: Patient is a 67-year-old male well known to us from previous psychia tric admissions who presented to the hospital on an M1 hold due to concerns from his brother who is a lso his guardian that he was unable to care for himself. He had apparently become more delusional th an typical, hyperverbal, pressured, disorganized, and was not caring for himself at home. He was bro ught to the hospital for further evaluation on an M1 hold by the [employer] as they h ad numerous contacts with him in recent days, and he had also been evaluated by the outreach folks [facility]. A full description of the events preceding admission can be found in his admission history dated 09/25/2018. ADMITTING DIAGNOSES: 1. Schizoaffective disorder, bipolar type, chronic with acute exacerbation. 2. Medical noncompliance. 3. Cannabis use disorder, severe. 4. Amphetamine use disorder by history. 5. Marginal social supports. 6. Chronic illness, recurrent thoughts. ADMITTING PHYSICAL EXAMINATION: Performed by Dr. Oswaldo Cerna revealed obesity. No other acute p hysical findings. ADMISSION LABORATORY: CBC was normal. Serum chemistries were normal. Vitamin B12 was normal at 410 . TSH was normal at 1.46. Urine drug screen was positive for marijuana. HOSPITAL COURSE: Patient was admitted to the behavioral health services inpatient unit on an M1 hold . He is known to me from previous admission and he remembered me, greeting me by name. He was clear ly elevated, disorganized, displaying tangential thoughts, and grandiose, paranoid, and bizarre delus ions. His affect was also labile and rather intense, but was always positive and happy. I discussed with him the potential use of psychotropic medications and he stated that he wanted to continue his outpatient treatment with Risperdal. This was continued at 3 mg at h.s. and he tolerated it well wit h no side effects. I then started treatment with Depakote, which he took up to 1500 mg daily achievi ng a level of 84. He noticed a significant increase in appetite, however, and this was tapered and T opamax was added at 25 mg b.i.d. We had a plan to go to the 50 mg b.i.d. ultimately. This can be don e as an outpatient, however. The patient tolerated this well with no side effects as well. It is of note, he did have a dietary consult who recommended that he not overeat, which he had been frandy torres. He has been ordering takeout food to the unit at all hours of the day and night. An example i s he ordered 2 take-out meals at 3 in the morning one and ate both of them. We instituted a beh avioral plan that he was not to consume large amounts of food outside of regular meal times. He was eating the these take-out meals in addition to large amounts of food through the cafeteria. Patient's hospitalization was protracted due to concern for his ability to care for himself. His psy chiatric symptoms stabilized well with the combination of Depakote and Risperdal, but he continued to display disorganized thinking and extremely poor insight and judgment. His delusions were essential ly unchanged in character, though decreased in intensity and intrusiveness. He displayed mostly gran diose and erotomania delusions believing that he had a who was the love of his life whom he had never actually met and would come to him in a spiritual form. He would display rather labile affect, but was generally elevated. He was happy and laughing at most times, but then would begin to sudden ly stop in a manner that he cannot explain. It was almost a pseudobulbar picture, though I do not be lieve this is particularly accurate for him at this time. The patient's behaviors were controlled throughout his hospitalization. He had no episodes of aggres aminah or any behavioral dyscontrol. He was compliant with all treatments, but did prefer to isolate i n his room. For this reason, he was placed on a behavioral program with the reverse room protocol fo r most of his day in which he was to be out of the room for breakfast until 3 in the afternoon. At t hat time he could return to his room, which he often did. When he was out in the milieu, he particip ated in all groups, was pleasant and interactive, and appropriate. Considerable attention was made to his cognition. It appears that he does have evidence of a likely vascular dementia. CT scan of the brain was obtained that showed diffuse periventricular volume loss and evidence of hypertensive disease. He certainly has the observable stigmata of a dementia and th is significantly impacts his overall functioning. On discharge, we will add the diagnosis of a vascu lar dementia, while I believe this is accurate. He also has a contributor of his chronic thought dis order, which is a known dementing illness as well. CONDITION ON DISCHARGE: Stable. He is discharged tomorrow, though has been stable for several weeks at this point, and I am not concerned that he will have a major decompensation between then and now. He will be seen by Eleno Choi, nurse practitioner or Dr. Barraza prior to leaving the hospital and israel mcclendon can comment on his specific stat that time. . DISCHARGE MEDICATIONS: Lipitor 40 mg daily, Depakote 500 mg b.i.d., Pepcid 20 mg b.i.d., melatonin 3 mg q.h.s., Nicoderm CQ 21 mg daily, Risperdal 3 mg h.s., and Topamax 50 mg b.i.d. DISCHARGE DIAGNOSES: 1. Schizoaffective disorder, chronic with acute exacerbation. 2. Vascular dementia. 3. Chronic illness, recurrent illness. 4. Marginal local supports. 5. Cannabis use disorder, severe. 6. Obesity. DISPOSITION: Patient is to leave the hospital to go with the staff from the [facility] where he will now be living. Patient is to be given written instructions as to his discharge. Patient's attitude will be assessed at time of discharge. Patient was placed on a short-term certification at the expiration of his M1 hold. Short-term certif ication will be discontinued at time of discharge unless [facility] says something prior to then about transferring. Patient was full code throughout his stay. Patient was administered alcohol, nicotine, cannabis, and metabolic screenings. Recommendations were made for dietary restrictions, as well as cannabis use. Patient is ambivalent about both. /[id number]/[id number]
[2018-10-31] MEDS: MELATONIN 3 MG TAB PO SCH (21:18)
[2018-10-31] MEDS: risperiDONE 1 MG TAB PO SCH (21:18)
[2018-11-01 06:42] VITALS: BP 123/83
[2018-11-01] MEDS: DIVALPROEX ER 500 MG TAB PO SCH (07:51)
[2018-11-01] MEDS: FAMOTIDINE 20 MG TAB PO SCH (07:51)
[2018-11-01] MEDS: TOPIRAMATE 25 MG TAB PO SCH (07:51)
[2018-11-01] MEDS: ATORVASTATIN CALCIUM 40 MG TAB PO SCH (07:51)
[2018-11-01] MEDS: NICOTINE 21 MG/24 HR PATCH TD SCH (07:51)
== END 2018-11-01 10:10 | DRG 885 ==
LOC: BBEH 09-25 09:10
PROVIDERS: ADMIT Registered Nurse; ATTEND Registered Nurse
DX: F25.0 Schizoaffective disorder, bipolar type (principal); T43.506A Underdosing of unspecified antipsychotics and neuroleptics, initial encounter; F01.50 Vascular dementia, unspecified severity, without behavioral disturbance, psychotic disturbance, mood disturbance, and anxiety; F12.959 Cannabis use, unspecified with psychotic disorder, unspecified; E66.9 Obesity, unspecified; F17.200 Nicotine dependence, unspecified, uncomplicated; E78.5 Hyperlipidemia, unspecified
CPT/HCPCS: 80305; 82607-90; J1630